=== PATIENT | male | born 1950 | race Caucasian/White ===

== ENCOUNTER 2024-12-17 04:17 | Inpatient (IN) | payer MEDICARE, SELFPAY ==
[2024-12-17] VITALS (35 sets, daily range): BP systolic 100–136; BP diastolic 64–95; PULSE 82–108; RESP 11–29; TEMP 36.1–37.1; O2SAT 90–100; BMI 16.4; BMI 16.2
--- NOTE | ~2024-12-17 | XR_ITS ---
AP view of the pelvis and AP and lateral views of the right hip Clinical history: Pain Findings: There is acute comminuted fracture through the intertrochanteric region of the proximal rig ht femur with varus angulation of the major distal fracture fragment.. Bilateral hip and SI joint spa vanessa are preserved. Soft tissues are unremarkable. Impression: Acute comminuted intertrochanteric fracture of the proximal right femur, as detailed above. Reviewed, dictated and finalized at location M. Impression: Acute comminuted intertrochanteric fracture of the proximal right femur, as det harshil above.
--- NOTE | ~2024-12-17 | XR_ITS ---
MODIFIED ESOPHAGRAM HISTORY: Aspiration TECHNIQUE: Modified barium esophagram was performed on 12/19/2024. I administered fluoroscopy and perf ormed the exam with speech pathologist. Patient was seated for lateral fluoroscopic imaging for zoe stion of thin liquids, pudding, solids and quantified amounts, followed by thin liquids in uncontroll ed amounts. This was recorded on tape. A single fluoroscopic spot image was also recorded. The DAP fo r this procedure was 0.875 Gycm2. The amount of fluoroscopy time used during this procedure was 1.5 m inutes. FINDINGS: Oral stage: Adequate function. Pharyngeal stage: Reduced laryngeal elevation and adduction. Reduced tongue base retraction and phary ngeal squeeze. There is vallecular and piriform sinus residue. There is laryngeal penetration with as piration after the swallow. Moderate cervical spondylosis with small anterior endplate osteophytes in the mid to lower cervical spine. Cervical/esophageal stage: Adequate function. IMPRESSION: Pharyngeal dysphagia with laryngeal penetration and aspiration after the swallow. Please correlate with speech pathologist findings and specific feeding recommendations. Reviewed, dictated and finalized at location A. IMPRESSION: Pharyngeal dysphagia with laryngeal penetration and aspiration afte r the swallow. Please correlate with speech pathologist findings and specific feeding recommendations.
--- NOTE | ~2024-12-17 | XR_ITS ---
XR chest 1V portable Ordering provider: Kevon Wren History: 74 years Male with . RUL mass . Comparison: December 17, 2024 FINDINGS: MEDIASTINUM: The cardiac silhouette is not enlarged. LUNGS: No infiltrates, effusions or pneumothorax. Right upper lobe mass is again demonstrated unchang ed from previous examination. OTHER: No free air under the diaphragm. Degenerative changes of the spine. IMPRESSION: Right upper lobe mass unchanged. Reviewed, dictated and finalized at location A.
--- NOTE | ~2024-12-17 | XR_ITS ---
Portable chest x-ray Comparison: None Clinical History: Status post fall Findings: There is 6.6 cm mass versus consolidation in the right upper lobe medially. Possible minim al fluid in the left fissure versus left midlung scarring. Probable COPD. Cardiomediastinal silhouet te is stable. Bones and soft tissues are unremarkable. Impression: 6.6 cm mass versus consolidation right upper lobe medially. Chest CT recommended to further evaluate. COPD. Reviewed, dictated and finalized at location . Impression: 6.6 cm mass versus consolidation right upper lobe medially. Chest CT recommende d to further evaluate. COPD.
--- NOTE | ~2024-12-17 | XR_ITS ---
INTRAOPERATIVE FLUOROSCOPY: CLINICAL HISTORY: 74 years old Male; RIGHT IT NAIL PROCEDURE COMMENTS: Limited intraoperative fluoroscopy of the right hip was performed. CUMULATIVE DOSE: 6.1 mGy FLUOROSCOPY TIME: 86 seconds FINDINGS/IMPRESSION: Please refer to operative note for further details. Reviewed, dictated and finalized at location A.
--- NOTE | ~2024-12-17 | CT_ITS ---
Clinical Indication: Right lung mass CT Scan of the Chest with Contrast: Technique: Contiguous sections were acquired throughout the chest after intravenous administration of 75 cc of Omnipaque 350. Dose reduction technique was used on this scan by utilizing automated exposu re control and iterative reconstruction technique. The dose-length product (DLP) was 144.39 mGy-cm. Findings: There are enlarged right paratracheal, right hilar, and subcarinal lymph nodes. Largest node is proba kathreine in the right paratracheal stripe measuring approximately 2.1 cm in diameter.. There is no filling defect in the pulmonary arterial tree to suggest pulmonary embolus. There is no evidence of aortic d issection or aneurysm. There is no evidence of pleural or pericardial effusion. Posterior right upper lobe consolidation is present, most compatible with pneumonia. Small amount of hyperdense material present in the consolidation raising possibility of aspiration. Questionable area s of necrosis within the pneumonia versus changes related to underlying severe emphysema. There is pr obable linear scarring in the lateral left upper lobe. Images through the upper abdomen reveal no abnormalities. Impression: Right upper lobe consolidation morphologically is most compatible with pneumonia. Hyperdense material within the pneumonia raises possibility of aspiration. Questionable areas of cavitation/necrosis wit hin the pneumonia versus changes related to underlying severe diffuse emphysema. Follow-up to radiogr aphic resolution is advised. Mediastinal and right hilar lymphadenopathy, presumably reactive. Reviewed, dictated and finalized at [facility]. Impression: Right upper lobe consolidation morphologically is most compatible with pneumoni a. Hyperdense material within the pneumonia raises possibility of aspiration. Q uestionable areas of cavitation/necrosis within the pneumonia versus changes re lated to underlying severe diffuse emphysema. Follow-up to radiographic resolut ion is advised. Mediastinal and right hilar lymphadenopathy, presumably reactive.
--- NOTE | 2024-12-17 04:20 | ECG_ITS ---
Test Date: 2024-12-17 04:35:02 Measurements Intervals Gordon Rate: 93 P: 85 MA: 131 QRS: -76 QRSD: 81 T: 76 QT: 351 QTc: 438 Interpretive Statements SINUS RHYTHM RIGHT ATRIAL ENLARGEMENT CONSIDER RIGHT VENTRICULAR CONDUCTION DELAY LEFT ANTERIOR FASCICULAR BLOCK BASELINE ARTIFACT- I, II, III, AVR, AVL, AVF, V1-V2, V4-V6 ABNORMAL ECG No previous ECG available for comparison Electronically Signed On 12-17-2024 06:38:19 CDT by Koby James D.O.
[2024-12-17 04:35] LABS: Basophils Percent Auto 0.4 % (0.2-1.2); Eosinophils Absolute Auto 0.1 K/mm3 (0-0.3); Eosinophils Percent Auto 0.7 % (0-4.4); Hematocrit 45.3 % (42.0-52.0); Hemoglobin 14.4 g/dL (14.0-18.0); Immature Granulocyte Absolute 0.06 K/mm3 (0.00-0.031); Immature Granulocyte Percent A 0.6 % (0-0.5); Lymphocytes Absolute Auto 0.78 K/mm3 (0.9-3.2); Lymphocytes Percent Auto 7.5 % (18.3-44.2); Mean Corpuscular HGB Conc 31.8 g/dl (32-36); Mean Corpuscular Hemoglobin 31.6 pg (26-34); Mean Corpuscular Volume 99.6 fl (80-100); Mean Platelet Volume 10.3 fl (7.4-10.4); Monocytes Absolute Auto 0.8 K/mm3 (0.1-0.6); Monocytes Percent Auto 7.8 % (2.6-8.5); Neutrophils Absolute Auto 8.6 K/mm3 (1.3-6.7); Platelet Count Result 269 k/mm3 (150-375); Red Blood Count 4.55 M/mm3 (4.6-6.20); Red Cell Distribution Width 14.4 % (11.5-14.5); White Blood Count 10.4 K/mm3 (4.5-10.0)
[2024-12-17 04:44] LABS: Alanine Aminotransferase 23 U/L (6-50); Albumin Level 4.2 g/dL (3.5-5.1); Alkaline Phosphatase 98 U/L (38-126); Anion Gap 14 mmol/L (4-12); Aspartate Amino Transferase 36 U/L (17-59); Bilirubin,Total 0.9 mg/dL (0.2-1.3); Blood Urea Nitrogen 30 mg/dL (9-20); Calcium 9.3 mg/dL (8.4-10.2); Carbon Dioxide 22 mmol/L (22-30); Chloride 105 mmol/L (98-107); Estimated CRCL calculation 40 ml/min; Estimated Glomerular Filt Rate > 60; Glucose 141 mg/dL (65-110); Magnesium 2.3 mg/dL (1.6-2.3); Potassium 3.7 mmol/L (3.4-5.0); Sodium 141 mmol/L (137-145)
[2024-12-17 04:54] LABS: INR 1.1; Prothrombin Time 14.5 Seconds (11.1-14.7)
[2024-12-17 04:55] LABS: Partial Thromboplastin Time 29.6 Seconds (22.3-36.8)
--- NOTE | 2024-12-17 04:56 | ED_ITS ---
HPI - General Adult General Chief complaint: Fall Stated complaint: Fall/hip pain History of Present Illness HPI narrative: patient 74-year-old gentleman presents emergency department chief complaint of right hip pain. Patient reports that he had a ground level fall and reports that he had pain in the right hip area reports he was unable to ambulate and reports that the extremity was shortened and rotated the patient normally gets his care at [facility] reports that he has a chronic indwelling Gabriel and has history of lung nodules Related Data Allergies Allergy/AdvReac Type Severity Reaction Status Date / Time No Known Allergies Allergy Verified 12/17/24 05:01 Review of Systems 2 Review of Systems: A 10 system review of systems was completed on the patient and is negative except for what is stated in the HPI. Nursing and ancillary documentation was reviewed. Exam 2 Narrative: GENERAL: thin, chronically ill-appearing, in mild pain distress HEAD: Normocephalic, atraumatic. EYES: PERRLA and EOMI. ENT: Nares clear, no rhinorrhea or epistaxis. Mucous membranes moist. NECK: Supple. CHEST: Clear to auscultation. No respiratory distress. HEART: Regular rate and rhythm. No murmur heard. Normal peripheral pulses. ABDOMEN: Soft, nontender, nondistended, normal active bowel sounds. : There is a Gabriel catheter in place EXTREMITIES: Normal range of motion in all extremities except for right lower extremity right hip is shortened externally rotated. No edema. SKIN: Warm, dry, no rash. NEURO: No focal deficits. Alert and oriented x3. extremely hard of hearing PSYCH: Normal mood and affect. Course Vital Signs Vital signs: Vital Signs Temperature 36.2 C L 12/17/24 04:12 Pulse Rate 96 12/17/24 04:12 Respiratory Rate 20 12/17/24 04:12 Blood Pressure 131/94 H 12/17/24 04:12 Pulse Oximetry 100 12/17/24 04:12 Oxygen Delivery Room Air 12/17/24 04:12 Temperature 36.2 C L 12/17/24 04:12 Pulse Rate 86 12/17/24 05:45 Respiratory Rate 17 12/17/24 05:45 Blood Pressure 117/77 12/17/24 05:45 Pulse Oximetry 96 12/17/24 05:45 Oxygen Delivery Room Air 12/17/24 04:12 Medical Decision Making Vital Signs Vital Signs: Vital Signs Temperature 36.2 C L 12/17/24 04:12 Pulse Rate 96 12/17/24 04:12 Respiratory Rate 20 12/17/24 04:12 Blood Pressure 131/94 H 12/17/24 04:12 Pulse Oximetry 100 12/17/24 04:12 Oxygen Delivery Room Air 12/17/24 04:12 Temperature 36.2 C L 12/17/24 04:12 Pulse Rate 86 12/17/24 05:45 Respiratory Rate 17 12/17/24 05:45 Blood Pressure 117/77 12/17/24 05:45 Pulse Oximetry 96 12/17/24 05:45 Oxygen Delivery Room Air 12/17/24 04:12 Lab Data 12/17/24 04:30 12/17/24 04:30 Labs: Lab Results 12/17/24 12/17/24 Range/Units 04:26 04:30 WBC 10.4 H (4.5-10.0) K/mm3 RBC 4.55 L (4.6-6.20) M/mm3 Hgb 14.4 (14.0-18.0) g/dL Hct 45.3 (42.0-52.0) % MCV 99.6 (80-100) fl MCH 31.6 (26-34) pg MCHC 31.8 L (32-36) g/dl RDW 14.4 (11.5-14.5) % Plt Count 269 (150-375) k/mm3 MPV 10.3 (7.4-10.4) fl Immature Gran % (Auto) 0.6 H (0-0.5) % Neut % (Auto) 83.0 H (45.5-73.1) % Lymph % (Auto) 7.5 L (18.3-44.2) % [place] % (Auto) 7.8 (2.6-8.5) % Eos % (Auto) 0.7 (0-4.4) % Baso % (Auto) 0.4 (0.2-1.2) % Lymph # (Auto) 0.78 L (0.9-3.2) K/mm3 [place] # (Auto) 0.8 H (0.1-0.6) K/mm3 Eos # (Auto) 0.1 (0-0.3) K/mm3 Baso # (Auto) 0.0 (0.0-0.1) K/mm3 Abs Immat Gran (auto) 0.06 H (0.00-0.031) K/mm3 Absolute Neuts (auto) 8.6 H (1.3-6.7) K/mm3 Absolute Nucleated RBC 0.000 (0.0-0.012) K/mm3 Nucleated RBC % 0.0 (0.0-0.2) % PT 14.5 (11.1-14.7) Seconds INR 1.1 APTT 29.6 (22.3-36.8) Seconds Sodium 141 (137-145) mmol/L Potassium 3.7 (3.4-5.0) mmol/L Chloride 105 (98-107) mmol/L Carbon Dioxide 22 (22-30) mmol/L Anion Gap 14 H (4-12) mmol/L BUN 30 H (9-20) mg/dL Creatinine 0.97 (0.7-1.3) mg/dL Estim Creat Clear Calc 40 ml/min Estimated GFR > 60 (59 - ) Glucose 141 H (65-110) mg/dL Calcium 9.3 (8.4-10.2) mg/dL Magnesium 2.3 (1.6-2.3) mg/dL Total Bilirubin 0.9 (0.2-1.3) mg/dL AST 36 (17-59) U/L ALT 23 (6-50) U/L Alkaline Phosphatase 98 (38-126) U/L Total Protein 8.0 (6.3-8.2) g/dL Albumin 4.2 (3.5-5.1) g/dL Urine Color Yellow (Yellow) Urine Appearance Turbid H (Clear) Urine pH >=9.0 H (5.0-9.0) Ur Specific [place] 1.017 (1.001-1.035) Urine Protein 2+ H (Negative) mg/dL Urine Glucose (UA) Negative (Negative) mg/dL Urine Ketones Trace H (Negative) mg/dL Ur Blood (Man) Negative (Negative) Urine Nitrate Negative (Negative) Urine Bilirubin Negative (Negative) Urine Urobilinogen 1.0 (<2.0) mg/dL Add Ur Microanalysis Reviewed Leukocyte Esterase Rfl 2+ H (Negative) GINNY/UL Urine RBC 3-5 H (0-2) /hpf Urine WBC 0-5 (0-3) /hpf Ur Squamous Epith Cells Occasional (Few) /hpf Uric Acid Crystals Present H (None) /hpf Urine Bacteria 4+ H /hpf Urine Casts 3-5 Urine Yeast (Budding) Present H (None) /hpf Discharge Plan Discharge Clinical Impression: Closed intertrochanteric fracture of right femur, Fall from ground level Patient Disposition: Still a Patient Condition: Stable Patient Language: [place] Citizen Time of Disposition: 06:22
[2024-12-17 04:58] LABS: Add Urine Microscopic? YES; Appearance Urine Turbid (Clear); Bacteria Urine 4+ /hpf; Bilirubin Urine Negative (Negative); Blood Urine Negative (Negative); Budding Yeast Urine Present /hpf; Color Urine Yellow (Yellow); Glucose Urine UA Negative (Negative); Ketones Urine Trace mg/dL (Negative); Leukocyte Esterase Ur 2+ LEU/UL (Negative); Need Manual Microscopic Reviewed; Nitrate Urine Negative (Negative); Protein Urine 2+ mg/dL (Negative); Specific Grav Ur 1.017 (1.001-1.035); Squamous Epithelial Cell Urine Occasional /hpf (Few); Uric Acid Crystals Urine Present /hpf; WBC Urine 0-5 /hpf (0-3); pH Urine >=9.0 (5.0-9.0)
[2024-12-17] MEDS: MORPHINE SULFATE (*CRX) 4 MG/ML INJ 2 MG IV PUSH (05:04)
--- NOTE | 2024-12-17 05:15 | PC.NURSE ---
[address] upon arrival, removed and replaced with new 18 FR power.
--- NOTE | 2024-12-17 06:34 | PC.NURSE ---
Spoke with patient's partner, Gera Sanchez. (# [phone]) Partner states patient does not currently have a PCP. States in August, the patient had a GI bleed and urinary retention, was seen in [place] for these problems and was transfused there and had a power catheter placed. Did not follow up with urology until a little over a week ago, where the catheter was changed out. Partner also states that the patient stopped taking his home medications sometime around September, has had a rapid weight loss, and troubles swallowing, especially liquids. Partner also states patient was supposed to follow up with GI, and pulmonology due to nodules found on his lungs, but has not followed up with either. Patient's partner will not be visiting today, but states patient's brother will be coming up this morning.
--- OUTSIDE RECORDS SUMMARY | 2024-12-17 06:47 | XMS_ITS | Clinical Summary ---
Author Organization [facility] Address [facility] [place] [address] Care Team Providers Care Roofing Technician Name Role Phone Unavailable Primary Care Provider Unavailabl e Social History Tobacco Use Types Packs/Day Years Used Date Smoking Tobacco: Former Sex and Gender Information Value Date Recorded Sex Assigned at Not on file Legal Sex Male 6:22 PM CDT Gender Identity Not on file Sexual Orientation Not on file Last Filed Vital Signs Vital Sign Reading Time Taken Comments Blood Pressure 142/88 09/08/2013 12:59 PM GLOBAL MOBILITY SPECIALIST Pulse 76 09/08/2013 12:58 PM GLOBAL MOBILITY SPECIALIST Temperature - - Respiratory Rate 16 09/08/2013 12:58 PM GLOBAL MOBILITY SPECIALIST Oxygen Saturation - - Inhaled Oxygen Concentration - - Weight 62.1 kg (137 lb) 09/08/2013 12:58 PM GLOBAL MOBILITY SPECIALIST Height 168.9 cm (5' 6.5 ) 09/08/2013 12:58 PM CS T Body Mass Index 21.78 09/08/2013 12:58 PM GLOBAL MOBILITY SPECIALIST Plan of Treatment Health Maintenance Due Date Last Done Comments Colorectal Cancer Screening Colonoscopy (10 Years) 1950 Hepatitis C 1969 DTaP, Tdap and Td Vaccines ( 1 - Tdap) 1970 Pneumococcal Vaccine: 50+ Ye ars (1 of 1 - PCV) 2001 Zoster Vaccines (1 of 2) 2001 COVID-19 Vaccine ( - 2023-2 5 season) 2024 RSV Immunization or 60+ Years (1 - 1-dose 75+ series) 2026 Meningococcal B Vaccine Aged Out No l onger eligible based on patient's age to complete this topic Meningococcal Vaccine Aged Out No ashley larissa eligible based on patient's age to complete this topic RSV Immunizations Under 20 Months Aged Out No longer eligible based on patient's age to complete this topic
--- NOTE | 2024-12-17 07:16 | PC.NURSE ---
Assumed care. Sleeping. In no distress. PMS intact to right leg. Awaiting room assignment.
--- NOTE | 2024-12-17 08:04 | P.HP_ITS ---
H&P: HPI History of Present Illness Date/Time: 12/17/24 08:04 Chief Complaint: Fall and right hip pain Narrative: patient 74-year-old gentleman with history of urine retention with indwelling Gabriel catheter, lung nodules present ED with a chief complaint of emergency department chief complaint of right hip pain. 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 Patient could not stand up and ambulate because severe pain. Patient lost balance when patient was walking the night and fall on the floor. Patient denies loss consciousness, chest pain, palpitation, abdomen pain, nausea vomiting. Upon arrival to ED, patient was afebrile, blood pressure stable, no O2 desaturation on room air, Labs reviewed, elevated BUN creatinine ratio 30/0.97 Hip pelvis x-ray showed acute comminuted intertrochanteric fracture of the proximal right femur Chest x-ray shows 6.6 cm mass versus consolidation right upper lobe medially. Chest CT recommended to further evaluate. Review of Systems Review of Systems: ROS negative except above PMFSH Past Medical History Medical History Lung nodule Cachexia Social History Social History Spiritual care concerns: No Meds Home Medications and Allergies Home Medications ?Medication ?Instructions ?Recorded ?Confirmed ?Type ferrous sulfate 325 mg (65 mg 325 mg PO .daily @1200 12/17/24 12/17/24 History iron) tablet midodrine 5 mg tablet 15 mg PO TID 12/17/24 12/17/24 History pantoprazole 40 mg tablet,delayed 40 mg PO BID 12/17/24 12/17/24 History release umeclidinium 62.5 mcg/actuation 1 inh inhalation Q24H 12/17/24 12/17/24 History blister powder for inhalation (Incruse Ellipta) Allergies Allergy/AdvReac Type Severity Reaction Status Date / Time No Known Allergies Allergy Verified 12/17/24 12:31 Vital Signs Vital Signs - 24 hr 12/17/24 04:12 12/17/24 04:20 12/17/24 05:02 Temperature 97.2 F L Pulse Rate 96 90 86 Respiratory Rate 20 20 21 H Blood Pressure 131/94 H 131/94 H 122/87 Pulse Oximetry 100 100 99 Oxygen Delivery Room Air 12/17/24 05:16 12/17/24 05:30 12/17/24 05:45 Temperature Pulse Rate 85 88 86 Respiratory Rate 14 19 17 Blood Pressure 120/91 H 114/81 117/77 Pulse Oximetry 98 94 96 Oxygen Delivery 12/17/24 06:00 12/17/24 06:15 12/17/24 06:30 Temperature Pulse Rate 84 86 93 Respiratory Rate 11 L 19 29 H Blood Pressure 110/77 111/72 Pulse Oximetry 99 95 Oxygen Delivery 12/17/24 06:37 12/17/24 06:45 Temperature Pulse Rate 87 87 Respiratory Rate 19 20 Blood Pressure 100/67 120/81 Pulse Oximetry 95 Oxygen Delivery Exam Narrative: GENERAL: Pleasant, in no acute distress. Severe malnutrition - EYES: EOMI. Anicteric. - HENT: Moist mucous membranes. Heart h earing - LUNGS: Clear to auscultation bilateral ly, no wheezing, rhonchi, or rales. - CARDIOVASCULAR: Regular rate and rhyth m. No murmur. No JVD. - ABDOMEN: Soft, non-tender and non-dist ended. No palpable masses. - EXTREMITIES: No edema. Peripheral puls es 2+. Restricted movement of right hip because of pain - NEUROLOGIC: No focal neurological defi cits. CN II-XII grossly intact. - PSYCHIATRIC: Awake, Alert and oriented x 3. Appropriate mood and affect. - SKIN: No rashes or lesions. Warm. - LYMPH: No cervical lymphadenopathy. H&P: Results Labs Labs: Short CBC 12/17/24 Range/Units 04:30 WBC 10.4 H (4.5-10.0) K/mm3 Hgb 14.4 (14.0-18.0) g/dL Hct 45.3 (42.0-52.0) % Plt Count 269 (150-375) k/mm3 BMP 12/17/24 04:30 Sodium 141 Potassium 3.7 Chloride 105 Carbon Dioxide 22 BUN 30 H Creatinine 0.97 Glucose 141 H Calcium 9.3 Liver Function 12/17/24 Range/Units 04:30 Total Bilirubin 0.9 (0.2-1.3) mg/dL AST 36 (17-59) U/L ALT 23 (6-50) U/L Alkaline Phosphatase 98 (38-126) U/L Albumin 4.2 (3.5-5.1) g/dL Urine 12/17/24 Range/Units 04:26 Urine Color Yellow (Yellow) Urine Appearance Turbid H (Clear) Urine pH >=9.0 H (5.0-9.0) Ur Specific [place] 1.017 (1.001-1.035) Urine Protein 2+ H (Negative) mg/dL Urine Glucose (UA) Negative (Negative) mg/dL Assessment and Plan Assessment and plan (1) Closed intertrochanteric fracture of right femur: Code(s): S72.141A - Displaced intertrochanteric fracture of right femur, initial encounter for closed fracture Status: Acute (2) Fall from ground level: Code(s): W18.30XA - Fall on same level, unspecified, initial encounter Status: Acute (3) Lung nodule: Code(s): R91.1 - Solitary pulmonary nodule Status: Acute Plan Right hip fracture Patient had a fall and sustained severe right hip pain Hip pelvis x-ray showed acute comminuted intertrochanteric fracture of the proximal right femur Optimize pain management Consult orthopedic surgeon Start PT OT when is cleared by orthopedic surgeon Lung nodule Chest x-ray shows 6.6 cm mass versus consolidation right upper lobe medially. A pending Chest CT with contrast Dehydration Labs reviewed, elevated BUN creatinine ratio 30/0.97 Start normal saline IV 100 mL/hour Severe malnutrition Consult dietitian DVT prophylaxis per orthopedic surgeon
[2024-12-17] MEDS: MORPHINE SULFATE (*CRX) 2 MG/ML INJ IV PUSH (08:59)
[2024-12-17] MEDS: SODIUM CHLORIDE 0.9% IV 1,000 ML 100 ML IV CONT ×2 (09:00→23:25)
[2024-12-17] MEDS: LACTATED RINGERS 1,000 ML 30 ML IV CONT (12:25)
--- NOTE | 2024-12-17 12:42 | WPDANESEPPF ---
Anes - Initial Pre Proc Eval Procedure: Operation Date: 12/17/24 14:00 Proposed Procedures p Open Reduction Internal Fixation Right Intertrochanteric Fracture(Right) - Jayson Hirsch MD Date/Time: 12/17/24 12:42 Surgeon: Josefina Terrazas MD Pre Op Diagnosis: Right intertrochanetric femur fracture Patient Data Age: 74 Gender: M Height: 1.7 m Weight: 47.1 kg Last Vital Signs Temp 37.1 C 12/17/24 12:20 Pulse 87 12/17/24 12:20 Resp 16 12/17/24 12:20 BP 112/71 12/17/24 12:20 Pulse Ox 99 12/17/24 12:20 O2 Del Method Room Air 12/17/24 12:20 Allergies Allergy/AdvReac Type Severity Reaction Status Date / Time No Known Allergies Allergy Verified 12/17/24 12:31 Home Medications ?Medication ?Instructions ?Recorded ?Confirmed ?Type ferrous sulfate 325 mg (65 mg 325 mg PO .daily @1200 12/17/24 12/17/24 History iron) tablet midodrine 5 mg tablet 15 mg PO TID 12/17/24 12/17/24 History pantoprazole 40 mg tablet,delayed 40 mg PO BID 12/17/24 12/17/24 History release umeclidinium 62.5 mcg/actuation 1 inh inhalation Q24H 12/17/24 12/17/24 History blister powder for inhalation (Incruse Ellipta) Laboratory Tests 12/17/24 12/17/24 04:26 04:30 WBC 10.4 H K/mm3 (4.5-10.0) RBC 4.55 L M/mm3 (4.6-6.20) Hgb 14.4 g/dL (14.0-18.0) Hct 45.3 % (42.0-52.0) MCV 99.6 fl (80-100) MCH 31.6 pg (26-34) MCHC 31.8 L g/dl (32-36) RDW 14.4 % (11.5-14.5) Plt Count 269 k/mm3 (150-375) MPV 10.3 fl (7.4-10.4) Immature Gran % (Auto) 0.6 H % (0-0.5) Neut % (Auto) 83.0 H % (45.5-73.1) Lymph % (Auto) 7.5 L % (18.3-44.2) [place] % (Auto) 7.8 % (2.6-8.5) Eos % (Auto) 0.7 % (0-4.4) Baso % (Auto) 0.4 % (0.2-1.2) Lymph # (Auto) 0.78 L K/mm3 (0.9-3.2) [place] # (Auto) 0.8 H K/mm3 (0.1-0.6) Eos # (Auto) 0.1 K/mm3 (0-0.3) Baso # (Auto) 0.0 K/mm3 (0.0-0.1) Abs Immat Gran (auto) 0.06 H K/mm3 (0.00-0.031) Absolute Neuts (auto) 8.6 H K/mm3 (1.3-6.7) Absolute Nucleated RBC 0.000 K/mm3 (0.0-0.012) Nucleated RBC % 0.0 % (0.0-0.2) PT 14.5 Seconds (11.1-14.7) INR 1.1 APTT 29.6 Seconds (22.3-36.8) Sodium 141 mmol/L (137-145) Potassium 3.7 mmol/L (3.4-5.0) Chloride 105 mmol/L (98-107) Carbon Dioxide 22 mmol/L (22-30) Anion Gap 14 H mmol/L (4-12) BUN 30 H mg/dL (9-20) Creatinine 0.97 mg/dL (0.7-1.3) Estim Creat Clear Calc 40 ml/min Estimated GFR > 60 (59 - ) Glucose 141 H mg/dL (65-110) Calcium 9.3 mg/dL (8.4-10.2) Magnesium 2.3 mg/dL (1.6-2.3) Total Bilirubin 0.9 mg/dL (0.2-1.3) AST 36 U/L (17-59) ALT 23 U/L (6-50) Alkaline Phosphatase 98 U/L (38-126) Total Protein 8.0 g/dL (6.3-8.2) Albumin 4.2 g/dL (3.5-5.1) Urine Color Yellow (Yellow) Urine Appearance Turbid H (Clear) Urine pH >=9.0 H (5.0-9.0) Ur Specific [place] 1.017 (1.001-1.035) Urine Protein 2+ H mg/dL (Negative) Urine Glucose (UA) Negative mg/dL (Negative) Urine Ketones Trace H mg/dL (Negative) Ur Blood (Man) Negative (Negative) Urine Nitrate Negative (Negative) Urine Bilirubin Negative (Negative) Urine Urobilinogen 1.0 mg/dL (<2.0) Add Ur Microanalysis Reviewed Leukocyte Esterase Rfl 2+ H GINNY/UL (Negative) Urine RBC 3-5 H /hpf (0-2) Urine WBC 0-5 /hpf (0-3) Ur Squamous Epith Cells Occasional /hpf (Few) Uric Acid Crystals Present H /hpf (None) Urine Bacteria 4+ H /hpf Urine Casts 3-5 Urine Yeast (Budding) Present H /hpf (None) Patient hx anesthesia problems: none Family hx anesthesia problems: none Results Review: All pre-operative results and documents have been reviewed as part of the pre-operative evaluation. [facility] Past Medical History Medical History (Updated 12/17/24 @ 12:42 by Jack John DO) Lung nodule Cachexia Anes - Eval Final PreProcedure Day of Procedure 12/17/24 12:42 Patient weight: cachectic Heart: regular rate and rhythm Lungs: clear to auscultation Airway: Mallampati scale class II Neurological: alert and oriented Last oral intake: >/= 8 hours ASA classification: IV Emergent: no Anesthetic plan: proceed Anesthesia type and monitoring: general LMA and standard monitoring Results Review: All pre-operative results and documents have been reviewed as part of the pre-operative evaluation. Informed Consent: The patient's anesthetic plan and its attendant risks and benefits were discussed with the patient/family/POA. Questions were solicited and answers provided to the satisfaction of the patient/family/POA.
--- NOTE | 2024-12-17 13:07 | P.HP_ITS ---
H&P: HPI History of Present Illness Date/Time: 12/17/24 13:07 Chief Complaint: Right hip pain Narrative: Patient is a 74-year-old male who is at home with his partner fell yesterday landing onto his right hip. EMS was called he was taken by ambulance to the [facility] Emergency Room early this morning. The patient is here today with his younger brother Karlie. The patient is deaf and cannot hear. I co mmunicated with the patient and with his brother Karlie who is a great historian and very helpful with regard to providing some background with regard to the patient's medical history as well as social situation. I communicated with the patient through a clipboard in some writing. Patient reports pain nowhere else for access into the right hip. He normally would ambulate with a cane. He does have a walker she does not walker. Patient appears to be cachectic does not have much appetite. He has lost about 30-35 lb over the past 12 months. He does have a history of a prostate issue any presents to the emergency room with a urinary catheter that has been in place since August of this year. He has very poor follow-up with a primary care provider or a physician of any type. Apparently had a prostate issue but 2 years ago and had this catheter placed in [facility] on August this year after being admitted with a GI bleed. The catheter has been in place since that time. Review of Systems Review of Systems: According to the patient's younger brother Karlie the patient has lost 35 lb in t he past few months. He ambulates with a cane or walker. He has poor appetite. He lives at home with his partner. He does not have good follow-up with any physician. He has a urinary catheter in place as medically since August. He has a history of prostate issues unclear what type. Constitutional: Constitutional: Reports as per HPI, Reports anorexia, Reports frequent falls, Reports lethargy, Reports malaise, Reports poor appetite and Reports weight loss ENT: Reports hearing loss Comments: Extreme hearing loss. Need to use a clipboard to communicate with this patient. Genitourinary: Comments: The patient has a urinary catheter in place. This is been in place since August. Musculoskeletal: Musculoskeletal: Reports as per HPI [facility] Past Medical History Medical History Lung nodule Cachexia Social History Social History Spiritual care concerns: No Meds Home Medications and Allergies Home Medications ?Medication ?Instructions ?Recorded ?Confirmed ?Type ferrous sulfate 325 mg (65 mg 325 mg PO .daily @1200 12/17/24 12/17/24 History iron) tablet midodrine 5 mg tablet 15 mg PO TID 12/17/24 12/17/24 History pantoprazole 40 mg tablet,delayed 40 mg PO BID 12/17/24 12/17/24 History release umeclidinium 62.5 mcg/actuation 1 inh inhalation Q24H 12/17/24 12/17/24 History blister powder for inhalation (Incruse Ellipta) Allergies Allergy/AdvReac Type Severity Reaction Status Date / Time No Known Allergies Allergy Verified 12/17/24 12:31 Vital Signs Vital Signs - 24 hr 12/17/24 04:12 12/17/24 04:20 12/17/24 05:02 Temperature 36.2 C L Pulse Rate 96 90 86 Respiratory Rate 20 20 21 H Blood Pressure 131/94 H 131/94 H 122/87 Pulse Oximetry 100 100 99 Oxygen Delivery Room Air 12/17/24 05:16 12/17/24 05:30 12/17/24 05:45 Temperature Pulse Rate 85 88 86 Respiratory Rate 14 19 17 Blood Pressure 120/91 H 114/81 117/77 Pulse Oximetry 98 94 96 Oxygen Delivery 12/17/24 06:00 12/17/24 06:15 12/17/24 06:30 Temperature Pulse Rate 84 86 93 Respiratory Rate 11 L 19 29 H Blood Pressure 110/77 111/72 Pulse Oximetry 99 95 Oxygen Delivery 12/17/24 06:37 12/17/24 06:45 12/17/24 07:00 Temperature Pulse Rate 87 87 87 Respiratory Rate 19 20 19 Blood Pressure 100/67 120/81 116/80 Pulse Oximetry 95 Oxygen Delivery 12/17/24 07:01 12/17/24 07:15 12/17/24 07:16 Temperature Pulse Rate 85 86 86 Respiratory Rate 26 H 16 22 H Blood Pressure 118/84 Pulse Oximetry Oxygen Delivery 12/17/24 07:30 12/17/24 07:31 12/17/24 07:45 Temperature Pulse Rate 86 87 85 Respiratory Rate 17 19 14 Blood Pressure 115/95 H 119/82 Pulse Oximetry Oxygen Delivery 12/17/24 07:46 12/17/24 08:00 12/17/24 08:01 Temperature Pulse Rate 86 86 86 Respiratory Rate 16 18 15 Blood Pressure 115/81 Pulse Oximetry Oxygen Delivery 12/17/24 08:15 12/17/24 08:16 12/17/24 08:31 Temperature Pulse Rate 88 86 82 Respiratory Rate 19 19 20 Blood Pressure 128/89 125/83 Pulse Oximetry 98 Oxygen Delivery 12/17/24 09:05 12/17/24 12:20 Temperature 36.2 C L 37.1 C Pulse Rate 87 87 Respiratory Rate 16 16 Blood Pressure 136/81 112/71 Pulse Oximetry 98 99 Oxygen Delivery Room Air H&P: Results Labs Labs: Short CBC 12/17/24 Range/Units 04:30 WBC 10.4 H (4.5-10.0) K/mm3 Hgb 14.4 (14.0-18.0) g/dL Hct 45.3 (42.0-52.0) % Plt Count 269 (150-375) k/mm3 BMP 12/17/24 04:30 Sodium 141 Potassium 3.7 Chloride 105 Carbon Dioxide 22 BUN 30 H Creatinine 0.97 Glucose 141 H Calcium 9.3 Liver Function 12/17/24 Range/Units 04:30 Total Bilirubin 0.9 (0.2-1.3) mg/dL AST 36 (17-59) U/L ALT 23 (6-50) U/L Alkaline Phosphatase 98 (38-126) U/L Albumin 4.2 (3.5-5.1) g/dL Urine 12/17/24 Range/Units 04:26 Urine Color Yellow (Yellow) Urine Appearance Turbid H (Clear) Urine pH >=9.0 H (5.0-9.0) Ur Specific [place] 1.017 (1.001-1.035) Urine Protein 2+ H (Negative) mg/dL Urine Glucose (UA) Negative (Negative) mg/dL Assessment and Plan Assessment and plan (1) Intertrochanteric fracture of right hip: Code(s): S72.141A - Displaced intertrochanteric fracture of right femur, initial encounter for closed fracture Status: Acute Plan The patient is a 74-year-old male presents with a right hip intertrochanteric fracture displaced unstable. He lives at home with his partner and has been using a cane to ambulate. Apparently fell at home and EMS was contacted he was taken to the [facility] Emergency Room and diagnosed with a right hip intertrochanteric fracture. He is here today with his younger brother who is an excellent historian and provide some details with regards to the patient's social history is for medical issues. I communicated with the patient to a clipboard and writing. He has pain or else except for his right hip. My treatment plan is for a right hip intramedullary nikky fixation after reduction. I explained this to the patient's brother parent and also explained this to the patient in writing. They understand the risks benefits alternatives and complications of the procedure and they are willing to proceed. The risks include but not limited to infection nonunion malunion DVT and they agreed to proceed. Nerve and blood vessel injury were also discussed.
--- NOTE | 2024-12-17 13:26 | WPDHPUPDATE1 ---
History and Physical Update Update Date/Time: 12/17/24 13:26 History and Physical has been reviewed, including an updated exam of the patient. There are NO changes in the patient's condition. Risks, benefits, and alternatives have been discussed and questions answered. Patient agrees to proceed with procedure. Plan is to do a right hip open reduction internal fixation with the intramedullary nikky
[2024-12-17] MEDS: ceFAZolin 2 GM/D5W 50 ML 2 GM/50 ML BAG IVPB ×2 (13:31→21:42)
--- NOTE | 2024-12-17 14:08 | SUR.OPER ---
500 cc's of dark yellow urine emptied from power
[2024-12-17] MEDS: BUPIVACAINE/EPINEPHRINE 0.5% 50 ML VIAL 20 ML INFILTRATE (14:13)
--- NOTE | 2024-12-17 14:35 | ADMGEN ---
This patient, Gera Dennis, was admitted to [facility] Surg Room 330-02. Patient/family oriented to hospital policies and general routines including ID bracelet, bed and alarms, visiting hours, pain management, procedures, bathroom and other care routines, personal items, smoking policy, room service/diet, and visiting hours. Information on how to activate the Rapid Response Team has been discussed. Patient/Family are encouraged to report perceived risks to care and to ask questions if they do not understand what they are told or what they should do.
--- NOTE | 2024-12-17 14:57 | W.PM.PROC2 ---
Procedure Note - Detailed Date of Procedure 12/17/24 Pre-op Diagnosis Right intertrochanetric femur fracture Post-op Diagnosis Same Procedure Performed Right Hip Intra-Medullary Shiv Fixation of IT Fracture Surgeon Jayson Hirsch MD Anesthesia General Indications The patient is a 74-year-old male presented to the emergency room a displaced unstable right intertrochanteric fracture. Patient presented with his younger brother Karlie. His younger brother was the historian secondary to that he is able hear. I did communicate with the patient with a clipboard. Findings Displaced right hip intertrochanteric fracture Description of Procedure After obtaining consent her and marked in the patient's hip the patient was then brought to the operating placed in supine position at which time he underwent general anesthesia. Is in place on the fracture table the left lower extremity flexed at 90? of the hip and the knee and the right lower extremity was placed in traction reduction was then performed. Fluoroscopy was used to verify reduction in AP and lateral views. After this was done the right hip was then prepped and draped in standard sterile fashion. A time-out was performed to verify correct patient correct site of surgery and the fact that 2 g of Ancef were administered within 1 hour of the procedure. After this was done I then created a 1 in incision prior proximal to the greater trochanteric area. I then placed a guidewire into the area of the greater troch obtained my starting position and verified this on AP and lateral views. Then advanced a guidewire and opening hole with a Reamer. After this was done I then proceeded to place a gamma 3 nail down into the intramedullary canal and verified the proximal distal positioning using fluoroscopy. After this was done and then placed a guidewire into the femoral neck and femoral head center center position by AP and lateral views. After this was done I then measured the guidewire this was at 85 mm in length. I then drilled to 85 mm and placed an 85 mm screw in the exact same position. I then proceeded to turn my attention distally and placed a locking screw in the dynamic position. After this was done I then proceeded to compress and had anatomic reduction of the fracture site. All 3 incision sites were then irrigated copiously and closed using Vicryl suture and luz. The incision was better sterile fashion and transferred to the recovery room in stable condition. The patient will be anticoagulated with aspirin he may weight bear as tolerated will consult Physical therapy. Implants Gamma 3 IM Shiv Estimated Blood Loss 200 Drains No Packing No Pathology None sent Complications No immediate complications Condition Stable Disposition PACU
[2024-12-17] MEDS: PANTOPRAZOLE 40 MG TABLET PO (17:52)
[2024-12-17] MEDS: SENNA/DOCUSATE SODIUM TABLET 2 TAB PO (17:52)
[2024-12-17] MEDS: HYDROmorphone HCL INJ (*CRX) 2 MG/ML VIAL 1 MG IV PUSH (17:52)
[2024-12-17] MEDS: ASPIRIN 81 MG ENTERIC TABLET PO (20:17)
[2024-12-17] MEDS: FAMOTIDINE 20 MG TABLET PO (20:17)
[2024-12-18] VITALS (8 sets, daily range): BP systolic 97–129; BP diastolic 51–82; PULSE 73–105; RESP 18–24; TEMP 36.2–37.2; O2SAT 92–100
[2024-12-18] MEDS: ceFAZolin 2 GM/D5W 50 ML 2 GM/50 ML BAG IVPB ×2 (05:45→13:03)
[2024-12-18 06:00] LABS: Basophils Percent Auto 0.3 % (0.2-1.2); Eosinophils Percent Auto 0.2 % (0-4.4); Hematocrit 38.4 % (42.0-52.0); Hemoglobin 12.2 g/dL (14.0-18.0); Immature Granulocyte Absolute 0.07 K/mm3 (0.00-0.031); Immature Granulocyte Percent A 0.7 % (0-0.5); Lymphocytes Absolute Auto 0.57 K/mm3 (0.9-3.2); Lymphocytes Percent Auto 5.4 % (18.3-44.2); Mean Corpuscular HGB Conc 31.8 g/dl (32-36); Mean Corpuscular Hemoglobin 32.2 pg (26-34); Mean Corpuscular Volume 101.3 fl (80-100); Monocytes Absolute Auto 0.9 K/mm3 (0.1-0.6); Monocytes Percent Auto 8.8 % (2.6-8.5); Neutrophils Absolute Auto 8.9 K/mm3 (1.3-6.7); Neutrophils Percent Auto 84.6 % (45.5-73.1); Platelet Count Result 252 k/mm3 (150-375); Red Blood Count 3.79 M/mm3 (4.6-6.20); Red Cell Distribution Width 14.6 % (11.5-14.5); White Blood Count 10.5 K/mm3 (4.5-10.0)
[2024-12-18 06:23] LABS: Anion Gap 6 mmol/L (4-12); Blood Urea Nitrogen 24 mg/dL (9-20); Calcium 8.7 mg/dL (8.4-10.2); Carbon Dioxide 27 mmol/L (22-30); Chloride 110 mmol/L (98-107); Estimated CRCL calculation 48 ml/min; Estimated Glomerular Filt Rate > 60; Glucose 104 mg/dL (65-110); Potassium 4.7 mmol/L (3.4-5.0); Sodium 143 mmol/L (137-145)
[2024-12-18 06:34] LABS: Magnesium 2.2 mg/dL (1.6-2.3)
[2024-12-18] MEDS: ACETAMINOPHEN 500 MG TABLET PO (08:12)
[2024-12-18] MEDS: MIDODRINE HCL 10 MG TABLET PO ×3 (08:12→17:05)
[2024-12-18] MEDS: PANTOPRAZOLE 40 MG TABLET PO ×2 (08:12→17:06)
[2024-12-18] MEDS: MIDODRINE HCL 2.5 MG TABLET 5 MG PO ×3 (08:12→17:06)
[2024-12-18] MEDS: SENNA/DOCUSATE SODIUM TABLET 2 TAB PO ×2 (08:13→17:05)
[2024-12-18] MEDS: SODIUM CHLORIDE 0.9% IV 1,000 ML 100 ML IV CONT ×2 (08:13→21:36)
[2024-12-18] MEDS: FAMOTIDINE 20 MG TABLET PO ×2 (08:13→21:31)
[2024-12-18] MEDS: ASPIRIN 81 MG ENTERIC TABLET PO ×2 (08:13→21:31)
[2024-12-18] MEDS: polyethylene glycoL 3350 17 GM POWD.PACK PO (08:13)
--- NOTE | 2024-12-18 09:03 | WPDURCON ---
Assessment and Plan Assessment and plan (1) UTI (urinary tract infection): Code(s): N39.0 - Urinary tract infection, site not specified Status: Acute (2) H/O urinary retention: Code(s): Z87.898 - Personal history of other specified conditions Status: Acute (3) Indwelling catheter present on admission: Code(s): Z96.0 - Presence of urogenital implants Status: Acute Plan -wbc 10.5. UA significant for infection with urine cultures pending. antibiotics per primary service. tailor abx to culture results. -monthly catheter changes -Patient can follow up with [facility] Urology as outpatient in 3 weeks for voiding trial. If fails then will set up urodynamics and cystoscopy to determine etiology of retention. Urology Consult Note HPI Date Seen: 12/18/24 Requesting Physician: Josefina Terrazas MD Primary Care Provider: PHYSICIAN NOT ON STAFF Consult Narrative Narrative: Gera Dennis is a 74 year old male who is at home with his partner fell yesterday landing onto his right hip. EMS was called he was taken by ambulance to the [facility] Emergency Room early this morning. The patient is extremely hard of hearing. Partner Gera and brother Karlie both report the patient is noncompliant and doesn't follow up for care as ordered. He also hasn't been historically open with his health issues so the family knowledge is somewhat limited. He does have a history of a prostate issue and urinary retention and presented to the emergency room with an indwelling catheter that has been in place since approximately october of this year. Family states the prostate issue was 2 years ago. Family isn't sure if he had a prostatectomy, which the patient thought happened at [facility] ([place]). The patient had a catheter placed while at [facility] for GI bleed management and was sent home with it August 2024. While at [facility], family reports they were told he still has a prostate. Gera (the partner) had taken patient back to [facility] because the catheter stopped draining at some point in October. They state it had become blocked and it was changed at [facility] at that time but he hasn't follow up since. The patient nor the partner are really sure why he still has the catheter. Review of Systems Review of Systems: All systems reviewed & are unremarkable except as noted in HPI and below PMFSH Past Medical History Medical History Lung nodule Cachexia Social History Social History Smoking status: Light tobacco smoker Tobacco type: cigarettes Alcohol intake: never Substance use: current Substance use type: marijuana Do You Feel Safe in your Home?: Yes Lack of Transportation: No Lack of Food: Never True Current Housing: I Have Housing Concerned About Future Housing: No Difficulty Paying Gas/Electric Bills: No Difficulty Paying for Meds: No Currently Unemployed: No Education: Associate Degree Difficulty w/ Childcare or Family Care: No Spiritual care concerns: No Meds Home Medications and Allergies Home Medications ?Medication ?Instructions ?Recorded ?Confirmed ?Type ferrous sulfate 325 mg (65 mg 325 mg PO .daily @1200 12/17/24 12/17/24 History iron) tablet pantoprazole 40 mg tablet,delayed 40 mg PO BID 12/17/24 12/17/24 History release umeclidinium 62.5 mcg/actuation 1 inh inhalation Q24H 12/17/24 12/17/24 History blister powder for inhalation (Incruse Ellipta) Allergies Allergy/AdvReac Type Severity Reaction Status Date / Time No Known Allergies Allergy Verified 12/17/24 12:31 Vital Signs Vital Signs - 24 hr 12/17/24 09:05 12/17/24 12:20 12/17/24 14:45 Temperature 97.2 F L 98.7 F 97.4 F L Pulse Rate 87 87 108 H Respiratory Rate 16 16 18 Blood Pressure 136/81 112/71 109/91 H Pulse Oximetry 98 99 100 Oxygen Delivery Room Air Simple Face Mask Oxygen Flow Rate 8 12/17/24 15:00 12/17/24 15:15 12/17/24 15:30 Temperature Pulse Rate 98 99 96 Respiratory Rate 21 H 21 H 24 H Blood Pressure 111/80 111/80 109/84 Pulse Oximetry 100 100 100 Oxygen Delivery Room Air Room Air Room Air Oxygen Flow Rate 12/17/24 15:45 12/17/24 16:00 12/17/24 16:15 Temperature Pulse Rate 96 95 97 Respiratory Rate 17 19 21 H Blood Pressure 110/83 105/79 105/80 Pulse Oximetry 99 98 99 Oxygen Delivery Room Air Room Air Room Air Oxygen Flow Rate 12/17/24 16:30 12/17/24 20:00 12/17/24 20:34 Temperature 97 F L Pulse Rate 97 95 Respiratory Rate 19 20 Blood Pressure 113/80 111/64 Pulse Oximetry 99 90 Oxygen Delivery Room Air Room Air Oxygen Flow Rate 12/18/24 00:27 12/18/24 00:36 12/18/24 04:34 Temperature 97.1 F L 98.7 F Pulse Rate 98 102 H Respiratory Rate 20 24 H Blood Pressure 97/51 L 127/72 102/71 Pulse Oximetry 93 92 Oxygen Delivery Oxygen Flow Rate 12/18/24 08:07 Temperature Pulse Rate Respiratory Rate Blood Pressure Pulse Oximetry Oxygen Delivery Room Air Oxygen Flow Rate Exam Const: General: no acute distress HENMT: Other: [place] Eyes: General: appearance normal, both eyes and all related structures Neck: Neck: supple Resp: Effort & Inspection: normal respiratory effort : Other: catheter present Urinary Catheter: Urinary Catheter: patent and draining (turbid yellow) Skin: General skin exam: normal color Neuro: Speech: normal speech Psych: Speech and movement: Normal speech and movement present Results Labs 12/18/24 05:41 12/18/24 05:41 Labs: Short CBC 12/18/24 Range/Units 05:41 WBC 10.5 H (4.5-10.0) K/mm3 Hgb 12.2 L (14.0-18.0) g/dL Hct 38.4 L (42.0-52.0) % Plt Count 252 (150-375) k/mm3 BMP 12/18/24 05:41 Sodium 143 Potassium 4.7 Chloride 110 H Carbon Dioxide 27 BUN 24 H Creatinine 0.80 Glucose 104 Calcium 8.7
[2024-12-18] MEDS: CEFEPIME 2 GM/NS 50 ML 2 GM/50 ML BAG IVPB ×2 (10:56→21:36)
[2024-12-18] MEDS: FERROUS SULFATE 325 MG TABLET DR BY MOUTH (10:59)
--- NOTE | 2024-12-18 13:18 | P.PNIM_ITS ---
Progress Note: A&P Assessment and Plan (1) Closed intertrochanteric fracture of right femur: Code(s): S72.141A - Displaced intertrochanteric fracture of right femur, initial encounter for closed fracture Status: Acute (2) Fall from ground level: Code(s): W18.30XA - Fall on same level, unspecified, initial encounter Status: Acute (3) Lung nodule: Code(s): R91.1 - Solitary pulmonary nodule Status: Acute (4) Necrotizing pneumonia: Code(s): J85.0 - Gangrene and necrosis of lung Status: Acute Plan Right hip fracture Patient had a fall and sustained severe right hip pain Hip pelvis x-ray showed acute comminuted intertrochanteric fracture of the proximal right femur Optimize pain management Consult orthopedic surgeon Status post Right Hip Intra-Medullary Shiv Fixation of IT Fracture 12/17 Start PT OT, cleared by orthopedic surgeon Necrotizing pneumonia Lung nodule was found on x-ray initially. Chest x-ray shows 6.6 cm mass versus consolidation right upper lobe medially. CT showed right upper lobe consolidation morphologically is most compatible with pneumonia. Hyperdense material within the pneumonia raises possibility of asp iration. Questionable areas of cavitation/necrosis within the pneumonia versus changes related to underlying severe diffuse emphysema Patient is on cefepime, start vancomycin IV Consult sales engineering manager for evaluation treatment Dehydration Labs reviewed, elevated BUN creatinine ratio 30/0.97 Start normal saline IV 100 mL/hour Indwelling folic catheter, urinary retention Consult urologist for evaluation treatment Complicated UTI due to indwelling catheter UA shows pyuria, urine culture grows Providencia rettger and Alcaligenes krishna calis Switch from Ancef to cefepime IV Severe malnutrition Consult dietitian DVT prophylaxis per orthopedic surgeon Subjective Date/time seen: 12/18/24 13:18 Interval history: I SAW EXAM PATIENT IN PRESENTS OF PATIENT'S BROTHER. PATIENT FEELS PAIN IS TOLERABLE, PATIENT IS A COUGH WITH SCANT PHLEGM. PATIENT DENIES HEMOPTYSIS, CHEST PAIN. Exam Narrative: GENERAL: Pleasant, in no acute distress. Severe malnutrition - EYES: EOMI. Anicteric. - HENT: Moist mucous membranes. Heart h earing - LUNGS: Clear to auscultation bilateral ly, no wheezing, rhonchi, or rales. - CARDIOVASCULAR: Regular rate and rhyth m. No murmur. No JVD. - ABDOMEN: Soft, non-tender and non-dist ended. No palpable masses. - EXTREMITIES: No edema. Peripheral puls es 2+. Restricted movement of right hip because of pain - NEUROLOGIC: No focal neurological defi cits. CN II-XII grossly intact. - PSYCHIATRIC: Awake, Alert and oriented x 3. Appropriate mood and affect. - SKIN: Surgical wound is dry and clean - LYMPH: No cervical lymphadenopathy. Objective Data Vital Signs Vital Signs: Vital Signs - 24 hr 12/17/24 14:45 12/17/24 15:00 12/17/24 15:15 Temperature 97.4 F L Pulse Rate 108 H 98 99 Respiratory Rate 18 21 H 21 H Blood Pressure 109/91 H 111/80 111/80 Pulse Oximetry 100 100 100 Oxygen Delivery Simple Face Mask Room Air Room Air Oxygen Flow Rate 8 12/17/24 15:30 12/17/24 15:45 12/17/24 16:00 Temperature Pulse Rate 96 96 95 Respiratory Rate 24 H 17 19 Blood Pressure 109/84 110/83 105/79 Pulse Oximetry 100 99 98 Oxygen Delivery Room Air Room Air Room Air Oxygen Flow Rate 12/17/24 16:15 12/17/24 16:30 12/17/24 20:00 Temperature Pulse Rate 97 97 Respiratory Rate 21 H 19 Blood Pressure 105/80 113/80 Pulse Oximetry 99 99 Oxygen Delivery Room Air Room Air Room Air Oxygen Flow Rate 12/17/24 20:34 12/18/24 00:27 12/18/24 00:36 Temperature 97 F L 97.1 F L Pulse Rate 95 98 Respiratory Rate 20 20 Blood Pressure 111/64 97/51 L 127/72 Pulse Oximetry 90 93 Oxygen Delivery Oxygen Flow Rate 12/18/24 04:34 12/18/24 08:00 12/18/24 08:07 Temperature 98.7 F Pulse Rate 102 H Respiratory Rate 24 H Blood Pressure 102/71 Pulse Oximetry 92 Oxygen Delivery Room Air Room Air Oxygen Flow Rate 12/18/24 08:34 12/18/24 08:45 Temperature 98.8 F Pulse Rate 105 H Respiratory Rate 20 Blood Pressure 102/68 Pulse Oximetry 99 Oxygen Delivery Room Air Oxygen Flow Rate Intake/Output Intake/Output: Intake & Output 12/15/24 12/16/24 12/17/24 12/18/24 23:59 23:59 23:59 23:59 Intake Total 1300 1170 Output Total 200 500 Balance 1100 670 Meds/Results Medications: Active Medications Generic Name Dose Route Start Last Admin Trade Name Freq PRN Reason Stop Dose Admin Acetaminophen 500 mg 12/17/24 14:52 12/18/24 08:12 Acetaminophen 500 Mg Tablet PO 500 mg Q6H PRN Administration Pain Rated 1-3 Hydrocodone Bitart/Acetaminophen 1 tab 12/17/24 14:52 Hydrocodone/Acetaminophen (*Crx) 5-325 Mg Tablet PO Q4H PRN Pain Rated 4-6 Aspirin 81 mg 12/17/24 21:00 12/18/24 08:13 Aspirin 81 Mg Enteric Tablet PO 81 mg Q12HR MELLISA Administration Famotidine 20 mg 12/17/24 21:00 12/18/24 08:13 Famotidine 20 Mg Tablet PO 20 mg Q12HR MELLISA Administration Ferrous Sulfate 325 mg 12/18/24 12:00 12/18/24 10:59 Ferrous Sulfate [address] BY MOUTH 325 mg DAILY@1200 MELLISA Administration Hydromorphone HCl 1 mg 12/17/24 15:01 12/17/24 17:52 Hydromorphone Hcl Inj (*Crx) 2 Mg/Ml Vial IV PUSH 1 mg Q2H PRN Administration Breakthrough Pain Rated 7-10 or NPO Hydromorphone HCl 0.5 mg 12/17/24 15:02 Hydromorphone Hcl Inj (*Crx) 2 Mg/Ml Vial IV PUSH Q2H PRN Breakthrough Pain Rated 4-6 or NPO Hydroxyzine Pamoate 50 mg 12/17/24 14:47 Hydroxyzine Pamoate 25 Mg Capsule PO Q4H PRN Itching Sodium Chloride 1,000 mls @ 100 mls/hr 12/17/24 06:30 12/18/24 08:13 Normal Saline Iv IV CONT 100 mls/hr .Q10H MELLISA Administration Lactated Ringer's 1,000 mls @ 30 mls/hr 12/17/24 12:45 12/17/24 16:31 Lr - Lactated Ringers Iv IV CONT Infused .Q24H MELLISA Infusion Lactated Ringer's 1,000 mls @ 30 mls/hr 12/17/24 12:45 12/17/24 17:53 Lr - Lactated Ringers Iv IV CONT Not Given .Q24H MELLISA Cefazolin Sodium 2 gm in 50 mls @ 100 mls/hr 12/17/24 22:00 12/18/24 13:03 Ancef 2 Gm/D5w 50 Ml IVPB 12/18/24 14:29 100 mls/hr Q8H MELLISA Administration Ibuprofen 800 mg in 200 mls @ 400 mls/hr 12/17/24 14:47 Caldolor 800 Mg/200 Ml IVPB Q6H PRN Breakthrough Pain Rated 1-3 or NPO Cefepime HCl 2 gm in 50 mls @ 100 mls/hr 12/18/24 11:00 12/18/24 10:56 Maxipime 2 Gm/Ns 50 Ml IVPB 12/24/24 21:29 100 mls/hr Q12HR MELLISA Administration Magnesium Hydroxide 30 ml 12/17/24 14:52 Magnesium Hydroxide Susp 30 Ml Udc PO BID PRN Constipation Metoclopramide HCl 10 mg 12/17/24 08:20 Metoclopramide Hcl Inj 10 Mg/2 Ml Vial IV PUSH Q6H PRN Nausea And Vomiting Midodrine 5 mg 12/18/24 09:00 12/18/24 12:47 Midodrine Hcl 2.5 Mg Tablet PO 5 mg TID MELLISA Administration Midodrine 10 mg 12/18/24 09:00 12/18/24 12:47 Midodrine Hcl 10 Mg Tablet PO 10 mg TID MELLISA Administration Morphine Sulfate 2 mg 12/17/24 06:29 12/17/24 08:59 Morphine Sulfate (*Crx) 2 Mg/Ml Inj IV PUSH 2 mg Q2H PRN Administration Pain Rated 7-10 Naloxone HCl 0.1 mg 12/17/24 14:47 Naloxone Hcl 0.4 Mg/Ml Vial IV PUSH Q2M PRN Opiate Reversal Ondansetron HCl 4 mg 12/17/24 08:20 Ondansetron Inj 4 Mg/2 Ml Vial IV PUSH Q6H PRN Nausea And Vomiting Ondansetron HCl 4 mg 12/17/24 12:43 Ondansetron Inj 4 Mg/2 Ml Vial IV PUSH ONCE PRN Nausea Ondansetron HCl 4 mg 12/17/24 14:47 Ondansetron Inj 4 Mg/2 Ml Vial IV PUSH Q4H PRN Nausea And Vomiting Oxycodone/Acetaminophen 1 tab 12/17/24 08:19 Oxycodone/Acetaminophen (*Crx) 10-325 Mg Tablet PO Q4H PRN Pain Rated 7-10 Pantoprazole Sodium 40 mg 12/17/24 17:00 12/18/24 08:12 Pantoprazole 40 Mg Tablet PO 40 mg BID MELLISA Administration Polyethylene Glycol 17 gm 12/18/24 09:00 12/18/24 08:13 Polyethylene Glycol 3350 17 Gm Powd.Pack PO 17 gm QAM MELLISA Administration Senna/Docusate Sodium 2 tab 12/17/24 17:00 12/18/24 08:13 Senna/Docusate Sodium Tablet PO 2 tab BID MELLISA Administration Radiology Results: ITS Impressions Chest X-Ray 12/17/24 06:11 Impression: 6.6 cm mass versus consolidation right upper lobe medially. Chest CT recommended to further evaluate. COPD. Hip/Pelvis X-Ray 12/17/24 06:12 Impression: Acute comminuted intertrochanteric fracture of the proximal right femur, as detailed above. Chest CT 12/17/24 09:39 Impression: Right upper lobe consolidation morphologically is most compatible with pneumonia. Hyperdense material within the pneumonia raises possibility of aspiration. Questionable areas of cavitation/necrosis within the pneumonia versus changes related to underlying severe diffuse emphysema. Follow-up to radiographic resolution is advised. Mediastinal and right hilar lymphadenopathy, presumably reactive. Labs Labs: Laboratory Results - last 24 hr 12/18/24 05:41 WBC 10.5 H RBC 3.79 L Hgb 12.2 L Hct 38.4 L MCV 101.3 H MCH 32.2 MCHC 31.8 L RDW 14.6 H Plt Count 252 MPV 10.0 Immature Gran % (Auto) 0.7 H Neut % (Auto) 84.6 H Lymph % (Auto) 5.4 L Hickman % (Auto) 8.8 H Eos % (Auto) 0.2 Baso % (Auto) 0.3 Lymph # (Auto) 0.57 L Hickman # (Auto) 0.9 H Eos # (Auto) 0.0 Baso # (Auto) 0.0 Abs Immat Gran (auto) 0.07 H Absolute Neuts (auto) 8.9 H Absolute Nucleated RBC 0.000 Nucleated RBC % 0.0 Sodium 143 Potassium 4.7 Chloride 110 H Carbon Dioxide 27 Anion Gap 6 BUN 24 H Creatinine 0.80 Estim Creat Clear Calc 48 Estimated GFR > 60 Glucose 104 Calcium 8.7 Magnesium 2.2
--- NOTE | 2024-12-18 13:31 | PM.CNPUL ---
Assessment and Plan Assessment and plan (1) Necrotizing pneumonia: Code(s): J85.0 - Gangrene and necrosis of lung Status: Acute Assessment and Plan: He has a large cavitary right upper lobe lung lesion with severe end-stage emphysema. Compared to his CT scan result that we have from [facility] September 23, 2024 the description sounds similar in some ways and improved. (2) End stage chronic obstructive pulmonary disease: Code(s): J44.9 - Chronic obstructive pulmonary disease, unspecified Status: Acute Assessment and Plan: On no treatment. He has advanced emphysema, has not wanted to see any doctors for routine care, continues to smoke. Wasting, losing wt for months at least 6 months, may be attributable to pulmonary cachexia or malignancy in the right lung. (3) Tobacco abuse: Code(s): Z72.0 - Tobacco use Status: Acute Assessment and Plan: 40-50 year history, still smoked up until this admission. He may benefit from nicotine patch. (4) Suspected pulmonary aspiration of food: Code(s): R09.89 - Other specified symptoms and signs involving the circulatory and respiratory systems Status: Acute Assessment and Plan: He does say he has been choking on food at home. He has got terrible dentition. Will check a MBS. (5) Frail elderly: Code(s): R54 - Age-related physical debility Status: Acute Assessment and Plan: Debilitated, BMI is 16, severe malnutrition, poor ability to ambulate, patient is making poor decisions and avoiding all sorts of necessary tasks in his personal life. Plan plan: Start duo-Nebs Q 6 hours. He has indwelling Gabriel, so he will not have problem with urinary retention with the ipratropium. I want to avoid giving him inhaled steroid since I do not know what is going on in his lung with a right upper lobe. If he has a fungal problem, inhaled steroids may make it worse. Also 1 avoid using an inhaler in general because he has so much emphysema I do not think he will have a lot of inspiratory capacity. He has a productive cough, will obtain sputum tomorrow am for Gram stain, fungal and mycobacterial studies. HIV screen. QuantiFERON GOLD. Sputum studies. Modified barium swallow - he reports difficultly swallowing, may be aspirating. He needs to have end-of-life discussions. He is wasting quickly, may have malignancy in the RUL. I think he would be at risk having a bronchoscopy and I do not think we would get any meaningful information. I would not be able to reach the cavitating lesion in the right upper lobe by bronchoscopy because it is too distal. I requested his prior information from [facility]. I just received a chest CT report from September 23, 2024. Large dense parenchymal consolidation involving the posterior half of the right upper lobe consistent with lobar pneumonia. Multiple small foci of air-filled cavitation noted in the infiltrate. Additionally there are patchy areas of irregular shaped consolidation in the anterior half the right upper lobe measuring up to 1.7 cm. Smaller consolidative area in the lateral segment of the right middle lobe. Small layering right parapneumonic effusion. Mild linear band of scarring versus atelectasis in the left upper lobe. Left lung otherwise free of infiltrate. Lung hyperinflation with severe centrilobular and panlobular emphysema. Enlarged 2.6 cm right paratracheal lymph node. Mild right hilar lymphadenopathy with maximum diameter 1.4 cm. Multiple coronary artery calcification. 6.2 x 3.4 cm fluid density in the upper pole of the left kidney either representing hydronephrosis or a large parapelvic cyst. History of Present Illness History of Present Illness Consult date: 12/18/24 Requesting physician: Greg Rasmussen MD Chief complaint: necrotizing pneumonia Narrative: pt was seen December 18, 2024 at 14:35 Room 330 History supplemented by younger brother Doc and partner Gera. NEW: Gera Dennis is 74-years old, admitted with a right intertrochanteric fracture and possible necrotizing pneumonia. He has an indwelling Gabriel, COPD, pulmonary nodules, has been at [facility] in Aug transferred from [facility] when he had urinary retention, possible GI bleed, and [facility] had beds. He was discharged on September 22 with an indwelling Gabriel, was not on oxygen. He was sent home with an order for several meds and 1 of them was Incruse, umeclidinium, but he stopped all the meds on his own. He had no follow-up with Urology, Pulmonary or GI. He has no primary care doctor. His brother and partner also tell me that he was in [facility] he may be 6 months ago with urinary retention, had some sort of prostate procedure but not a removal of his prostate. Patient came to [place] with a fall and right hip fracture December 16, went to [place] yesterday for repair. I was asked to see him for abnormal chest CT. He has been a smoker for at least 40 years about a pack per day. He has had tremendous weight loss in last 6-12 months, maybe 30 pounds. He is having difficulty swallowing. He is very short of breath with walking. He has poor appetite. He has a chronic cough with sputum production. He wheezes at times. He has had a few episodes of pneumonia in the last few years. He goes to urgent care when he needs treatment, does not have any continuity of care. He does not have home oxygen. He was sent home from the hospital on Incruse, does not use any inhaler currently. His brother and his partner know that he has had an abnormal chest CT for a long time. He has never had a bronchoscopy. He has never followed up with any pulmonary physician. He has not been told that he has cancer or any specific type of infection. He has never been tested for HIV. He has some sort of untreated mental condition. His partner Gera tells me that the patient does not have hallucinations or paranoid thoughts. He has never had an official diagnosis but he has significant problems managing his life. He quit paying taxes several years ago. He moved away to [place] in , moved back to this area but remained mostly estranged from his family. He has been in touch with his younger brother, Doc who is here today. 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 No . No exposure to vapors, fumes, dust, silica, asbestos. No high risk environment such is alf. DATA * 12/17/2024: Chest CT There are enlarged right paratracheal, right hilar, and subcarinal lymph nodes. Largest node is probably in the right paratracheal stripe measuring approximately 2.1 cm in diameter.. There is no filling defect in the pulmonary arterial tree to suggest pulmonary embolus. There is no evidence of aortic dissection or aneurysm. There is no evidence of pleural or pericardial effusion. Posterior right upper lobe consolidation is present, most compatible with pneumonia. Small amount of hyperdense material present in the consolidation raising possibility of aspiration. Questionable areas of necrosis within the pneumonia versus changes related to underlying severe emphysema. There is probable linear scarring in the lateral left upper lobe. Images through the upper abdomen reveal no abnormalities. Impression: Right upper lobe consolidation morphologically is most compatible with pneumonia. Hyperdense material within the pneumonia raises possibility of aspiration. Questionable areas of cavitation/necrosis within the pneumonia versus changes related to underlying severe diffuse emphysema. Follow-up to radiographic resolution is advised. Mediastinal and right hilar lymphadenopathy, presumably reactive. Review of Systems Review of Systems: All systems reviewed & are unremarkable except as noted in HPI and below [facility] Past Medical History Medical History Lung nodule Cachexia Social History Social History Smoking status: Light tobacco smoker Tobacco type: cigarettes Alcohol intake: never Substance use: current Substance use type: marijuana Do You Feel Safe in your Home?: Yes Lack of Transportation: No Lack of Food: Never True Current Housing: I Have Housing Concerned About Future Housing: No Difficulty Paying Gas/Electric Bills: No Difficulty Paying for Meds: No Currently Unemployed: No Education: Associate Degree Difficulty w/ Childcare or Family Care: No Spiritual care concerns: No Meds Home Medications and Allergies Home Medications ?Medication ?Instructions ?Recorded ?Confirmed ?Type ferrous sulfate 325 mg (65 mg 325 mg PO .daily @1200 12/17/24 12/17/24 History iron) tablet pantoprazole 40 mg tablet,delayed 40 mg PO BID 12/17/24 12/17/24 History release umeclidinium 62.5 mcg/actuation 1 inh inhalation Q24H 12/17/24 12/17/24 History blister powder for inhalation (Incruse Ellipta) Allergies Allergy/AdvReac Type Severity Reaction Status Date / Time No Known Allergies Allergy Verified 12/17/24 12:31 Vital Signs Vital Signs - 24 hr 12/17/24 14:45 12/17/24 15:00 12/17/24 15:15 Temperature 36.3 C L Pulse Rate 108 H 98 99 Respiratory Rate 18 21 H 21 H Blood Pressure 109/91 H 111/80 111/80 Pulse Oximetry 100 100 100 Oxygen Delivery Simple Face Mask Room Air Room Air Oxygen Flow Rate 8 12/17/24 15:30 12/17/24 15:45 12/17/24 16:00 Temperature Pulse Rate 96 96 95 Respiratory Rate 24 H 17 19 Blood Pressure 109/84 110/83 105/79 Pulse Oximetry 100 99 98 Oxygen Delivery Room Air Room Air Room Air Oxygen Flow Rate 12/17/24 16:15 12/17/24 16:30 12/17/24 20:00 Temperature Pulse Rate 97 97 Respiratory Rate 21 H 19 Blood Pressure 105/80 113/80 Pulse Oximetry 99 99 Oxygen Delivery Room Air Room Air Room Air Oxygen Flow Rate 12/17/24 20:34 12/18/24 00:27 12/18/24 00:36 Temperature 36.1 C L 36.2 C L Pulse Rate 95 98 Respiratory Rate 20 20 Blood Pressure 111/64 97/51 L 127/72 Pulse Oximetry 90 93 Oxygen Delivery Oxygen Flow Rate 12/18/24 04:34 12/18/24 08:00 12/18/24 08:07 Temperature 37.1 C Pulse Rate 102 H Respiratory Rate 24 H Blood Pressure 102/71 Pulse Oximetry 92 Oxygen Delivery Room Air Room Air Oxygen Flow Rate 12/18/24 08:34 12/18/24 08:45 Temperature 37.1 C Pulse Rate 105 H Respiratory Rate 20 Blood Pressure 102/68 Pulse Oximetry 99 Oxygen Delivery Room Air Oxygen Flow Rate Exam Narrative: GEN: Emaciated 74 year old man, extremely hard of hearing, cooperative with interview and exam. Alert, not in distress. Color is strange. HEENT: pupils are equal, EOMI, symmetrical face; oral membranes moist, terrible dentition, multiple missing teeth, has carious teeth. Mallampati II airway NECK: Trachea is midline CHEST: Equal air entry, symmetric excursion, hyperinflated thorax, extremely decreased breath sounds CV: Distant regular S1S2 no m/g/r ABD : (+) bowel sounds, soft Extremities : no clubbing, no cyanosis, no edema; nicotine staining on the right 1st fingernail PSYCH: pleasant, hard of hearing, has hearing aids out due to discomfort, gait is not tested Results Laboratory Findings 12/18/24 05:41 12/18/24 05:41 ABG, PT/INR, D-dimer: PT/INR, D-dimer PT 14.5 Seconds (11.1-14.7) 12/17/24 04:30 INR 1.1 12/17/24 04:30 Abnormal lab findings: Abnormal Labs 12/17/24 12/17/24 12/18/24 04:26 04:30 05:41 WBC 10.4 H 10.5 H RBC 4.55 L 3.79 L Hgb 12.2 L Hct 38.4 L MCV 101.3 H MCHC 31.8 L 31.8 L RDW 14.6 H Immature Gran % (Auto) 0.6 H 0.7 H Neut % (Auto) 83.0 H 84.6 H Lymph % (Auto) 7.5 L 5.4 L Bay % (Auto) 8.8 H Lymph # (Auto) 0.78 L 0.57 L Bay # (Auto) 0.8 H 0.9 H Abs Immat Gran (auto) 0.06 H 0.07 H Absolute Neuts (auto) 8.6 H 8.9 H Chloride 110 H Anion Gap 14 H BUN 30 H 24 H Glucose 141 H Urine Appearance Turbid H Urine pH >=9.0 H Urine Protein 2+ H Urine Ketones Trace H Leukocyte Esterase Rfl 2+ H Urine RBC 3-5 H Uric Acid Crystals Present H Urine Bacteria 4+ H Urine Yeast (Budding) Present H
[2024-12-18] MEDS: VANCOMYCIN 1,250 MG/NS 250 ML 1,250 MG/250 ML BAG 166.67 MG IVPB (14:44)
[2024-12-18] MEDS: ONDANSETRON INJ 4 MG/2 ML VIAL IV PUSH (17:04)
[2024-12-18] MEDS: NICOTINE (*PBKC) 14 MG PATCH 1 PATCH TRANSDERM (17:05)
--- NOTE | 2024-12-18 18:07 | PM.PNORT ---
Progress Note: A&P Assessment and Plan (1) Closed intertrochanteric fracture of right femur: Code(s): S72.141A - Displaced intertrochanteric fracture of right femur, initial encounter for closed fracture Status: Acute Plan POD 1 Right Hip IM nikky, doing well. Recommend 81mg Asa Daily for 4 weeks postOp Follow up with Dr Hirsch 2 weeks. Outing will be removed at this time. Dressing change in 4-5 days. Dry dressing. Time Spent With Patient Time with patient: less than 15 minutes Subjective Subjective Date/Time Seen: 12/18/24 18:07 Interval history: Moderate Right Hip Pain Exam Narrative: Right Hip Bandaged and dry Objective Data Vital Signs Vital Signs: Vital Signs - 24 hr 12/17/24 20:00 12/17/24 20:34 12/18/24 00:27 Temperature 36.1 C L 36.2 C L Pulse Rate 95 98 Respiratory Rate 20 20 Blood Pressure 111/64 97/51 L Pulse Oximetry 90 93 Oxygen Delivery Room Air 12/18/24 00:36 12/18/24 04:34 12/18/24 08:00 Temperature 37.1 C Pulse Rate 102 H Respiratory Rate 24 H Blood Pressure 127/72 102/71 Pulse Oximetry 92 Oxygen Delivery Room Air 12/18/24 08:07 12/18/24 08:34 12/18/24 08:45 Temperature 37.1 C Pulse Rate 105 H Respiratory Rate 20 Blood Pressure 102/68 Pulse Oximetry 99 Oxygen Delivery Room Air Room Air 12/18/24 12:34 12/18/24 16:34 Temperature 37.2 C 36.8 C Pulse Rate 73 80 Respiratory Rate 20 20 Blood Pressure 129/72 113/82 Pulse Oximetry 100 96 Oxygen Delivery Intake/Output Intake/Output: Intake & Output 12/15/24 12/16/24 12/17/24 12/18/24 23:59 23:59 23:59 23:59 Intake Total 1300 1720 Output Total 200 925 Balance 1100 795 Meds/Results Medications: Active Medications Generic Name Dose Route Start Last Admin Trade Name Freq PRN Reason Stop Dose Admin Acetaminophen 500 mg 12/17/24 14:52 12/18/24 08:12 Acetaminophen 500 Mg Tablet PO 500 mg Q6H PRN Administration Pain Rated 1-3 Hydrocodone Bitart/Acetaminophen 1 tab 12/17/24 14:52 Hydrocodone/Acetaminophen (*Crx) 5-325 Mg Tablet PO Q4H PRN Pain Rated 4-6 Albuterol/Ipratropium 3 ml 12/18/24 20:00 Ipratropium 0.5 Mg/Albuterol Sulfate 2.5 Mg Ampul.Neb 3 Ml INHALATION Q6HRT MELLISA Aspirin 81 mg 12/17/24 21:00 12/18/24 08:13 Aspirin 81 Mg Enteric Tablet PO 81 mg Q12HR MELLISA Administration Famotidine 20 mg 12/17/24 21:00 12/18/24 08:13 Famotidine 20 Mg Tablet PO 20 mg Q12HR MELLISA Administration Ferrous Sulfate 325 mg 12/18/24 12:00 12/18/24 10:59 Ferrous Sulfate [address] BY MOUTH 325 mg DAILY@1200 MELLISA Administration Hydromorphone HCl 1 mg 12/17/24 15:01 12/17/24 17:52 Hydromorphone Hcl Inj (*Crx) 2 Mg/Ml Vial IV PUSH 1 mg Q2H PRN Administration Breakthrough Pain Rated 7-10 or NPO Hydromorphone HCl 0.5 mg 12/17/24 15:02 Hydromorphone Hcl Inj (*Crx) 2 Mg/Ml Vial IV PUSH Q2H PRN Breakthrough Pain Rated 4-6 or NPO Hydroxyzine Pamoate 50 mg 12/17/24 14:47 Hydroxyzine Pamoate 25 Mg Capsule PO Q4H PRN Itching Sodium Chloride 1,000 mls @ 100 mls/hr 12/17/24 06:30 12/18/24 08:13 Normal Saline Iv IV CONT 100 mls/hr .Q10H MELLISA Administration Lactated Ringer's 1,000 mls @ 30 mls/hr 12/17/24 12:45 12/17/24 16:31 Lr - Lactated Ringers Iv IV CONT Infused .Q24H MELLISA Infusion Lactated Ringer's 1,000 mls @ 30 mls/hr 12/17/24 12:45 12/17/24 17:53 Lr - Lactated Ringers Iv IV CONT Not Given .Q24H MELLISA Ibuprofen 800 mg in 200 mls @ 400 mls/hr 12/17/24 14:47 Caldolor 800 Mg/200 Ml IVPB Q6H PRN Breakthrough Pain Rated 1-3 or NPO Cefepime HCl 2 gm in 50 mls @ 100 mls/hr 12/18/24 11:00 12/18/24 10:56 Maxipime 2 Gm/Ns 50 Ml IVPB 12/24/24 21:29 100 mls/hr Q12HR MELLISA Administration Vancomycin HCl 1,000 mg in 250 mls @ 250 mls/hr 12/19/24 15:00 Vancomycin 1,000 Mg/Ns 250 Ml IVPB Q24H MELLISA Magnesium Hydroxide 30 ml 12/17/24 14:52 Magnesium Hydroxide Susp 30 Ml Udc PO BID PRN Constipation Metoclopramide HCl 10 mg 12/17/24 08:20 Metoclopramide Hcl Inj 10 Mg/2 Ml Vial IV PUSH Q6H PRN Nausea And Vomiting Midodrine 5 mg 12/18/24 09:00 12/18/24 17:06 Midodrine Hcl 2.5 Mg Tablet PO 5 mg TID [facility] Administration Midodrine 10 mg 12/18/24 09:00 12/18/24 17:05 Midodrine Hcl 10 Mg Tablet PO 10 mg TID MELLISA Administration Morphine Sulfate 2 mg 12/17/24 06:29 12/17/24 08:59 Morphine Sulfate (*Crx) 2 Mg/Ml Inj IV PUSH 2 mg Q2H PRN Administration Pain Rated 7-10 Naloxone HCl 0.1 mg 12/17/24 14:47 Naloxone Hcl 0.4 Mg/Ml Vial IV PUSH Q2M PRN Opiate Reversal Nicotine 1 patch 12/18/24 16:25 12/18/24 17:05 Nicotine (*Pbkc) 14 Mg Patch TRANSDERM 1 patch DAILY MELLISA Administration Ondansetron HCl 4 mg 12/17/24 08:20 12/18/24 17:04 Ondansetron Inj 4 Mg/2 Ml Vial IV PUSH 4 mg Q6H PRN Administration Nausea And Vomiting Ondansetron HCl 4 mg 12/17/24 12:43 Ondansetron Inj 4 Mg/2 Ml Vial IV PUSH ONCE PRN Nausea Ondansetron HCl 4 mg 12/17/24 14:47 Ondansetron Inj 4 Mg/2 Ml Vial IV PUSH Q4H PRN Nausea And Vomiting Oxycodone/Acetaminophen 1 tab 12/17/24 08:19 Oxycodone/Acetaminophen (*Crx) 10-325 Mg Tablet PO Q4H PRN Pain Rated 7-10 Pantoprazole Sodium 40 mg 12/17/24 17:00 12/18/24 17:06 Pantoprazole 40 Mg Tablet PO 40 mg BID MELLISA Administration Polyethylene Glycol 17 gm 12/18/24 09:00 12/18/24 08:13 Polyethylene Glycol 3350 17 Gm Powd.Pack PO 17 gm QAM MELLISA Administration Senna/Docusate Sodium 2 tab 12/17/24 17:00 12/18/24 17:05 Senna/Docusate Sodium Tablet PO 2 tab BID MELLISA Administration Sodium Chloride 6 ml 12/19/24 05:00 Sodium Chlor 3% 15 Ml Neb (Respiratory Therapy) INHALATION 12/21/24 05:01 DAILY@0500 [facility] Radiology Results: ITS Impressions Chest X-Ray 12/17/24 06:11 Impression: 6.6 cm mass versus consolidation right upper lobe medially. Chest CT recommended to further evaluate. COPD. Hip/Pelvis X-Ray 12/17/24 06:12 Impression: Acute comminuted intertrochanteric fracture of the proximal right femur, as detailed above. Chest CT 12/17/24 09:39 Impression: Right upper lobe consolidation morphologically is most compatible with pneumonia. Hyperdense material within the pneumonia raises possibility of aspiration. Questionable areas of cavitation/necrosis within the pneumonia versus changes related to underlying severe diffuse emphysema. Follow-up to radiographic resolution is advised. Mediastinal and right hilar lymphadenopathy, presumably reactive. Labs Labs: Laboratory Results - last 24 hr 12/18/24 05:41 WBC 10.5 H RBC 3.79 L Hgb 12.2 L Hct 38.4 L MCV 101.3 H MCH 32.2 MCHC 31.8 L RDW 14.6 H Plt Count 252 MPV 10.0 Immature Gran % (Auto) 0.7 H Neut % (Auto) 84.6 H Lymph % (Auto) 5.4 L [place] % (Auto) 8.8 H Eos % (Auto) 0.2 Baso % (Auto) 0.3 Lymph # (Auto) 0.57 L [place] # (Auto) 0.9 H Eos # (Auto) 0.0 Baso # (Auto) 0.0 Abs Immat Gran (auto) 0.07 H Absolute Neuts (auto) 8.9 H Absolute Nucleated RBC 0.000 Nucleated RBC % 0.0 Sodium 143 Potassium 4.7 Chloride 110 H Carbon Dioxide 27 Anion Gap 6 BUN 24 H Creatinine 0.80 Estim Creat Clear Calc 48 Estimated GFR > 60 Glucose 104 Calcium 8.7 Magnesium 2.2
[2024-12-18 18:34] LABS: MRSA (PCR) NOT DETECTED (NOT DETECTE)
[2024-12-18] MEDS: IPRATROPIUM 0.5 MG/ALBUTEROL SULFATE 2.5 MG AMPUL.NEB 3 ML INHALATION (20:29)
[2024-12-19] VITALS (7 sets, daily range): BP systolic 94–119; BP diastolic 68–76; PULSE 73–84; RESP 13–20; TEMP 36.2–36.6; O2SAT 97–99
[2024-12-19] MEDS: HYDROmorphone HCL INJ (*CRX) 2 MG/ML VIAL 1 MG IV PUSH (00:11)
--- NOTE | 2024-12-19 01:16 | PCRCNOTE ---
Patient did not want to be woken for 0200 breathing tx on 12/19/24. Patient was very upset to be woken at 2000 for his first treatment on 12/18/24. Patient appeared angry with therapist, although, he took the breathing treatment. See next scheduled tx at 0800.
--- NOTE | 2024-12-19 05:43 | PCRCNOTE ---
Patient refused sodium chloride breathing treatment this morning. Patient was very agitated when the therapist woke him up and uncooperative.
[2024-12-19 06:25] LABS: Basophils Percent Auto 0.4 % (0.2-1.2); Eosinophils Percent Auto 0.6 % (0-4.4); Hematocrit 31.7 % (42.0-52.0); Hemoglobin 10.1 g/dL (14.0-18.0); Immature Granulocyte Absolute 0.04 K/mm3 (0.00-0.031); Immature Granulocyte Percent A 0.6 % (0-0.5); Lymphocytes Absolute Auto 0.56 K/mm3 (0.9-3.2); Lymphocytes Percent Auto 7.8 % (18.3-44.2); Mean Corpuscular HGB Conc 31.9 g/dl (32-36); Mean Corpuscular Volume 100.3 fl (80-100); Mean Platelet Volume 10.4 fl (7.4-10.4); Monocytes Absolute Auto 0.7 K/mm3 (0.1-0.6); Neutrophils Absolute Auto 5.9 K/mm3 (1.3-6.7); Neutrophils Percent Auto 81.6 % (45.5-73.1); Platelet Count Result 196 k/mm3 (150-375); Red Blood Count 3.16 M/mm3 (4.6-6.20); Red Cell Distribution Width 14.3 % (11.5-14.5); White Blood Count 7.2 K/mm3 (4.5-10.0)
[2024-12-19 06:32] LABS: Anion Gap 4 mmol/L (4-12); Blood Urea Nitrogen 19 mg/dL (9-20); Calcium 7.8 mg/dL (8.4-10.2); Carbon Dioxide 24 mmol/L (22-30); Chloride 113 mmol/L (98-107); Estimated CRCL calculation 55 ml/min; Estimated Glomerular Filt Rate > 60; Glucose 86 mg/dL (65-110); Potassium 3.3 mmol/L (3.4-5.0); Sodium 141 mmol/L (137-145)
[2024-12-19] MEDS: IPRATROPIUM 0.5 MG/ALBUTEROL SULFATE 2.5 MG AMPUL.NEB 3 ML INHALATION ×2 (07:48→20:14)
[2024-12-19] MEDS: oxyCODONE/ACETAMINOPHEN (*CRX) 10-325 MG TABLET 1 TAB PO (08:20)
[2024-12-19] MEDS: ASPIRIN 81 MG ENTERIC TABLET PO (08:21)
[2024-12-19] MEDS: NICOTINE (*PBKC) 14 MG PATCH 1 PATCH TRANSDERM (08:21)
[2024-12-19] MEDS: FAMOTIDINE 20 MG TABLET PO (08:21)
[2024-12-19] MEDS: SENNA/DOCUSATE SODIUM TABLET 2 TAB PO (08:21)
[2024-12-19] MEDS: polyethylene glycoL 3350 17 GM POWD.PACK PO (08:21)
[2024-12-19] MEDS: SODIUM CHLORIDE 0.9% IV 1,000 ML 100 ML IV CONT (08:21)
[2024-12-19] MEDS: PANTOPRAZOLE 40 MG TABLET PO (08:21)
[2024-12-19] MEDS: CEFEPIME 2 GM/NS 50 ML 2 GM/50 ML BAG IVPB ×2 (08:22→21:00)
[2024-12-19] MEDS: FERROUS SULFATE 325 MG TABLET DR BY MOUTH (11:34)
--- NOTE | 2024-12-19 12:13 | P.PNPL_ITS ---
Progress Note: A&P Assessment and Plan (1) Necrotizing pneumonia: Code(s): J85.0 - Gangrene and necrosis of lung Status: Acute Assessment and Plan: He has a large cavitary right upper lobe lung lesion with severe end-stage emphysema. Compared to his CT scan result that we have from [facility] September 23, 2024 the description sounds similar in some ways and improved. Infection vs malignancy. (2) End stage chronic obstructive pulmonary disease: Code(s): J44.9 - Chronic obstructive pulmonary disease, unspecified Status: Acute Assessment and Plan: On no out patient treatment. He has advanced emphysema, has not wanted to see any doctors for routine care, continues to smoke. Wasting, losing wt for months at least 6 months, may be attributable to pulmonary cachexia or malignancy in the right lung. (3) Tobacco abuse: Code(s): Z72.0 - Tobacco use Status: Acute Assessment and Plan: 40-50 year history, still smoked up until this admission. On nicotine patch. (4) Suspected pulmonary aspiration of food: Code(s): R09.89 - Other specified symptoms and signs involving the circulatory and respiratory systems Status: Acute Assessment and Plan: He does say he has been choking on food at home, poor dentition. Swallow evaluation indicated. (5) Frail elderly: Code(s): R54 - Age-related physical debility Status: Acute Assessment and Plan: Debilitated, BMI is 16, severe malnutrition, poor ability to ambulate, patient is making poor decisions and avoiding all sorts of necessary tasks in his personal life. (6) Hyperchloremia: Code(s): E87.8 - Other disorders of electrolyte and fluid balance, not elsewhere classified Status: Acute Assessment and Plan: Serum chloride increasing, 113; stopped NS. Change fluids to D5LR wiht 40 meq KCL @ 60 ml/hour Plan plan: 1) Continue duo-Nebs Q 6 hours for COPD. 2) Continue Cefepime and Vancomycin for possible pneumonia. 3) Stop NS due to elevated chloride 113. He has been on NS, contributing to hyperchloremia. 4) Change fluids to D5LR with K+40 meq @ 60/hour; he is not taking much orally, needs dextrose, replacing K+. 5) Bedside swallow. The patient told the staff that he thinks he had this test at [facility]. That was 3 months ago, he has lost significant weight since then. It is reasonable to get a new study now. He is in a different situation, needs to be evaluated as he is now, not waiting on prior swallow study. Looking at this man, frail, wasted, gaunt and strange, it is clear that something is wrong with his swallow. 6) Change diet to minced and moist texture with supplements if he passes his swallow. 7) Labs pending include QuantiFERON gold; sputum was ordered, not sure that he will be strong enough to expectorate to send specimen. HIV screen. QuantiFERON GOLD. Sputum studies. Modified barium swallow - he reports difficultly swallowing, may be aspirating. I want to avoid giving him inhaled steroid since I do not know what is going on in his lung with a right upper lobe. If he has a fungal problem, inhaled steroids may make it worse. It is reasonable to avoid using an inhaler in general because he has so much emphysema I do not think he will have a lot of inspiratory capacity to activate it. It will not benefot him. . 8) HIs brother Doc told me that he agreed to DNR status, and will agree to go for rehab after his discharge. He is wasting quickly, may have malignancy in the RUL. I think he would be at risk having a bronchoscopy and I do not think we would get any meaningful information. I would not be able to reach the cavitating lesion in the right upper lobe by bronchoscopy because it is too distal. I spoke with the patient and his brother at the bedside. I will not be staffing consultant this weekend, will be available by phone. Subjective Date/time seen: 12/19/24 12:13 Interval history: 12/19/2024; follow up visit; His brother Doc is present. Patient is sitting up in a chair, in room air. Feels better, less short of breath. His urine grew Providencia rettgeri and Alcaligenes faecalis; he had indwelling Gabriel that has not been changed for months. Providencia is a notorious opportunistic pathogen capable of causing serious nosocomial infections, mainly urinary tract infec tions (UTIs). These are hard to treat due to the resistance seen in clinical strains. Alcaligenes is a rare a bacterium that can cause urinary tract infections (UTIs), though it's considered a rare cause.?He is on Cefepime & vanco. May help with possible pneumonia. HIV testing is pending, sent 12/18. 12/18/2024; new consult; Gera Dennis is 74-years old, admitted with a right hip fracture, had surgery 12/17. He has an abnormal chest CT with possible necrotizing pneumonia. He has an indwelling Gabriel, COPD, pulmonary nodules, has been at [facility] in Aug transferred from [facility] when he had urinary retention, possible GI bleed, and [facility] had beds. He was discharged on September 22 with an indwelling Gabriel, was not on oxygen. He was sent home with an order for several meds and 1 of them was Incruse, umeclidinium, but he stopped all the meds on his own. He had no follow-up with Urology, Pulmonary or GI. He has no primary care doctor. His brother and partner also tell me that he was in [facility] he may be 6 months ago with urinary retention, had some sort of prostate procedure but not a removal of his prostate. Patient came to [facility] with a fall and right hip fracture December 16, went to OR yesterday for repair. I was asked to see him for abnormal chest CT. He has been a smoker for at least 40 years about a pack per day. He has had tremendous weight loss in last 6-12 months, maybe 30 pounds. He is having difficulty swallowing. He is very short of breath with walking. He has poor appetite. He has a chronic cough with sputum production. He wheezes at times. He has had a few episodes of pneumonia in the last few years. He goes to urgent care when he needs treatment, does not have any continuity of care. He does not have home oxygen. He was sent home from the hospital on Incruse, does not use any inhaler currently. His brother and his partner know that he has had an abnormal chest CT for a long time. He has never had a bronchoscopy. He has never followed up with any pulmonary physician. He has not been told that he has cancer or any specific type of infection. He has never been tested for HIV. He has some sort of untreated mental condition. His partner Gera tells me that the patient does not have hallucinations or paranoid thoughts. He has never had an official diagnosis but he has significant problems managing his life. He quit paying taxes several years ago. He moved away to [place] in , moved back to this area but remained mostly estranged from his family. He has been in touch with his younger brother, Doc who is here today. 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 No . No exposure to vapors, fumes, dust, silica, asbestos. No high risk environment such is intermediate. DATA * 12/17/2024: Chest CT There are enlarged right paratracheal, right hilar, and subcarinal lymph nodes. Largest node is probably in the right paratracheal stripe measuring approximately 2.1 cm in diameter.. There is no filling defect in the pulmonary arterial tree to suggest pulmonary embolus. There is no evidence of aortic dissection or aneurysm. There is no evidence of pleural or pericardial effusion. Posterior right upper lobe consolidation is present, most compatible with pneumonia. Small amount of hyperdense material present in the consolidation raising possibility of aspiration. Questionable areas of necrosis within the pneumonia versus changes related to underlying severe emphysema. There is probable linear scarring in the lateral left upper lobe. Images through the upper abdomen reveal no abnormalities. Impression: Right upper lobe consolidation morphologically is most compatible with pneumonia . Hyperdense material within the pneumonia raises possibility of aspiration. Questionable areas of cavitation/necrosis within the pneumonia versus changes related to underlying severe diffuse emphysema. Follow-up to radiographic resolution is advised. Mediastinal and right hilar lymphadenopathy, presumably reactive. * 09/23/2024. chest CT [facility]; Large dense parenchymal consolidation involving the posterior half of the right upper lobe consistent with lobar pneumonia. Multiple small foci of air-filled cavitation noted in the infiltrate. Additionally there are patchy areas of irregular shaped consolidation in the anterior half the right upper lobe measuring up to 1.7 cm. Smaller consolidative area in the lateral segment of the right middle lobe. Small layering right parapneumonic effusion. Mild linear band of scarring versus atelectasis in the left upper lobe. Left lung otherwise free of infiltrate. Lung hyperinflation with severe centrilobular and panlobular emphysema. Enlarged 2.6 cm right paratracheal lymph node. Mild right hilar lymphadenopathy with maximum diameter 1.4 cm. Multiple coronary artery calcification. 6.2 x 3.4 cm fluid density in the upper pole of the left kidney either representing hydronephrosis or a large parapelvic cyst. Review of Systems Review of Systems: All systems reviewed & are unremarkable except as noted in HPI and below Exam Narrative: GEN: Emaciated 74 year old man, extremely hard of hearing. Alert, not in distress. HEENT: pupils are equal, EOMI, symmetrical face; oral membranes moist, terrible dentition, multiple missing teeth, has carious teeth. Mallampati II airway NECK: Trachea is midline CHEST: Equal air entry, symmetric excursion, hyperinflated thorax, extremely decreased breath sounds CV: Distant regular S1S2 no m/g/r ABD : (+) bowel sounds, soft Extremities : no clubbing, no cyanosis, no edema; nicotine staining on the right 1st fingernail PSYCH: pleasant, hard of hearing, has hearing aids out due to discomfort, gait is not tested Objective Data Vital Signs Vital Signs: Vital Signs - 24 hr 12/18/24 12:34 12/18/24 16:34 12/18/24 20:00 Temperature 37.2 C 36.8 C Pulse Rate 73 80 Respiratory Rate 20 20 Blood Pressure 129/72 113/82 Pulse Oximetry 100 96 Oxygen Delivery Room Air 12/18/24 20:31 12/18/24 20:37 12/19/24 05:57 Temperature 36.2 C L Pulse Rate 80 80 81 Respiratory Rate 19 18 13 Blood Pressure 94/68 L Pulse Oximetry 99 Oxygen Delivery 12/19/24 07:48 12/19/24 07:48 12/19/24 07:57 Temperature Pulse Rate 76 73 Respiratory Rate 14 14 Blood Pressure Pulse Oximetry 97 Oxygen Delivery Room Air 12/19/24 08:00 Temperature Pulse Rate Respiratory Rate Blood Pressure Pulse Oximetry Oxygen Delivery Room Air Intake/Output Intake/Output: Intake & Output 12/16/24 12/17/24 12/18/24 12/19/24 23:59 23:59 23:59 23:59 Intake Total 1300 2820 1200 Output Total 200 925 700 Balance 1100 1895 500 Meds/Results Medications: Active Medications Generic Name Dose Route Start Last Admin Trade Name Freq PRN Reason Stop Dose Admin Acetaminophen 500 mg 12/17/24 14:52 12/18/24 08:12 Acetaminophen 500 Mg Tablet PO 500 mg Q6H PRN Administration Pain Rated 1-3 Hydrocodone Bitart/Acetaminophen 1 tab 12/17/24 14:52 Hydrocodone/Acetaminophen (*Crx) 5-325 Mg Tablet PO Q4H PRN Pain Rated 4-6 Albuterol/Ipratropium 3 ml 12/18/24 20:00 12/19/24 07:48 Ipratropium 0.5 Mg/Albuterol Sulfate 2.5 Mg Ampul.Neb 3 Ml INHALATION 3 ml Q6HRT MELLISA Administration Aspirin 81 mg 12/17/24 21:00 12/19/24 08:21 Aspirin 81 Mg Enteric Tablet PO 81 mg Q12HR MELLISA Administration Famotidine 20 mg 12/17/24 21:00 12/19/24 08:21 Famotidine 20 Mg Tablet PO 20 mg Q12HR MELLISA Administration Ferrous Sulfate 325 mg 12/18/24 12:00 12/19/24 11:34 Ferrous Sulfate [address] BY MOUTH 325 mg DAILY@1200 MELLISA Administration Hydromorphone HCl 1 mg 12/17/24 15:01 12/19/24 00:11 Hydromorphone Hcl Inj (*Crx) 2 Mg/Ml Vial IV PUSH 1 mg Q2H PRN Administration Breakthrough Pain Rated 7-10 or NPO Hydromorphone HCl 0.5 mg 12/17/24 15:02 Hydromorphone Hcl Inj (*Crx) 2 Mg/Ml Vial IV PUSH Q2H PRN Breakthrough Pain Rated 4-6 or NPO Hydroxyzine Pamoate 50 mg 12/17/24 14:47 Hydroxyzine Pamoate 25 Mg Capsule PO Q4H PRN Itching Sodium Chloride 1,000 mls @ 100 mls/hr 12/17/24 06:30 12/19/24 08:21 Normal Saline Iv IV CONT 100 mls/hr .Q10H MELLISA Administration Ibuprofen 800 mg in 200 mls @ 400 mls/hr 12/17/24 14:47 Caldolor 800 Mg/200 Ml IVPB Q6H PRN Breakthrough Pain Rated 1-3 or NPO Cefepime HCl 2 gm in 50 mls @ 100 mls/hr 12/18/24 11:00 12/19/24 08:22 Maxipime 2 Gm/Ns 50 Ml IVPB 12/24/24 21:29 100 mls/hr Q12HR MELLISA Administration Vancomycin HCl 1,000 mg in 250 mls @ 250 mls/hr 12/19/24 15:00 Vancomycin 1,000 Mg/Ns 250 Ml IVPB Q24H MELLISA Magnesium Hydroxide 30 ml 12/17/24 14:52 Magnesium Hydroxide Susp 30 Ml Udc PO BID PRN Constipation Metoclopramide HCl 10 mg 12/17/24 08:20 Metoclopramide Hcl Inj 10 Mg/2 Ml Vial IV PUSH Q6H PRN Nausea And Vomiting Midodrine 5 mg 12/18/24 09:00 12/19/24 08:23 Midodrine Hcl 2.5 Mg Tablet PO Not Given TID [facility] Midodrine 10 mg 12/18/24 09:00 12/19/24 08:22 Midodrine Hcl 10 Mg Tablet PO Not Given TID MELLISA Morphine Sulfate 2 mg 12/17/24 06:29 12/17/24 08:59 Morphine Sulfate (*Crx) 2 Mg/Ml Inj IV PUSH 2 mg Q2H PRN Administration Pain Rated 7-10 Naloxone HCl 0.1 mg 12/17/24 14:47 Naloxone Hcl 0.4 Mg/Ml Vial IV PUSH Q2M PRN Opiate Reversal Nicotine 1 patch 12/18/24 16:25 12/19/24 08:21 Nicotine (*Pbkc) 14 Mg Patch TRANSDERM 1 patch DAILY MELLISA Administration Ondansetron HCl 4 mg 12/17/24 08:20 12/18/24 17:04 Ondansetron Inj 4 Mg/2 Ml Vial IV PUSH 4 mg Q6H PRN Administration Nausea And Vomiting Ondansetron HCl 4 mg 12/17/24 12:43 Ondansetron Inj 4 Mg/2 Ml Vial IV PUSH ONCE PRN Nausea Ondansetron HCl 4 mg 12/17/24 14:47 Ondansetron Inj 4 Mg/2 Ml Vial IV PUSH Q4H PRN Nausea And Vomiting Oxycodone/Acetaminophen 1 tab 12/17/24 08:19 12/19/24 08:20 Oxycodone/Acetaminophen (*Crx) 10-325 Mg Tablet PO 1 tab Q4H PRN Administration Pain Rated 7-10 Pantoprazole Sodium 40 mg 12/17/24 17:00 12/19/24 08:21 Pantoprazole 40 Mg Tablet PO 40 mg BID [facility] Administration Polyethylene Glycol 17 gm 12/18/24 09:00 12/19/24 08:21 Polyethylene Glycol 3350 17 Gm Powd.Pack PO 17 gm QAM MELLISA Administration Senna/Docusate Sodium 2 tab 12/17/24 17:00 12/19/24 08:21 Senna/Docusate Sodium Tablet PO 2 tab BID [facility] Administration Sodium Chloride 6 ml 12/19/24 05:00 12/19/24 05:43 Sodium Chlor 3% 15 Ml Neb (Respiratory Therapy) INHALATION 12/21/24 05:01 Not Given DAILY@0500 [facility] Radiology Results: ITS Impressions Chest X-Ray 12/17/24 06:11 Impression: 6.6 cm mass versus consolidation right upper lobe medially. Chest CT recommended to further evaluate. COPD. Hip/Pelvis X-Ray 12/17/24 06:12 Impression: Acute comminuted intertrochanteric fracture of the proximal right femur, as detailed above. Chest CT 12/17/24 09:39 Impression: Right upper lobe consolidation morphologically is most compatible with pneumonia. Hyperdense material within the pneumonia raises possibility of aspiration. Questionable areas of cavitation/necrosis within the pneumonia versus changes related to underlying severe diffuse emphysema. Follow-up to radiographic resolution is advised. Mediastinal and right hilar lymphadenopathy, presumably reactive. Labs Labs: Laboratory Results - last 24 hr 12/18/24 12/19/24 17:14 05:57 WBC 7.2 RBC 3.16 L Hgb 10.1 L Hct 31.7 L MCV 100.3 H MCH 32.0 MCHC 31.9 L RDW 14.3 Plt Count 196 MPV 10.4 Immature Gran % (Auto) 0.6 H Neut % (Auto) 81.6 H Lymph % (Auto) 7.8 L [place] % (Auto) 9.0 H Eos % (Auto) 0.6 Baso % (Auto) 0.4 Lymph # (Auto) 0.56 L [place] # (Auto) 0.7 H Eos # (Auto) 0.0 Baso # (Auto) 0.0 Abs Immat Gran (auto) 0.04 H Absolute Neuts (auto) 5.9 Absolute Nucleated RBC 0.000 Nucleated RBC % 0.0 Sodium 141 Potassium 3.3 L Chloride 113 H Carbon Dioxide 24 Anion Gap 4 BUN 19 Creatinine 0.70 Estim Creat Clear Calc 55 Estimated GFR > 60 Glucose 86 Calcium 7.8 L Nasal MRSA (PCR) Not detected
--- NOTE | 2024-12-19 12:39 | P.PNIM_ITS ---
Progress Note: A&P Assessment and Plan (1) Closed intertrochanteric fracture of right femur: Code(s): S72.141A - Displaced intertrochanteric fracture of right femur, initial encounter for closed fracture Status: Acute Assessment and Plan: Ortho consult noted. Will start physical therapy. (2) Fall from ground level: Code(s): W18.30XA - Fall on same level, unspecified, initial encounter Status: Acute Assessment and Plan: Physical therapy and pain management (3) Lung nodule: Code(s): R91.1 - Solitary pulmonary nodule Status: Acute Assessment and Plan: Out Patient follow up and monitoring (4) Necrotizing pneumonia: Code(s): J85.0 - Gangrene and necrosis of lung Status: Acute Assessment and Plan: Continue IV antibiotics Plan Right hip fracture Patient had a fall and sustained severe right hip pain Hip pelvis x-ray showed acute comminuted intertrochanteric fracture of the proximal right femur Optimize pain management Consult orthopedic surgeon Status post Right Hip Intra-Medullary Shiv Fixation of IT Fracture 12/17 Start PT OT, cleared by orthopedic surgeon Necrotizing pneumonia Lung nodule was found on x-ray initially. Chest x-ray shows 6.6 cm mass versus consolidation right upper lobe medially. CT showed right upper lobe consolidation morphologically is most compatible with pneumonia. Hyperdense material within the pneumonia raises possibility of aspiration. Questionable areas of cavitation/necrosis within the pneumonia versus changes related to underlying severe diffuse emphysema Patient is on cefepime, start vancomycin IV Consult needle maker for evaluation treatment Dehydration Labs reviewed, elevated BUN creatinine ratio 30/0.97 Start normal saline IV 100 mL/hour Indwelling folic catheter, urinary retention Consult urologist for evaluation treatment Complicated UTI due to indwelling catheter UA shows pyuria, urine culture grows Providencia rettger and Alcaligenes faecalis Switch from Ancef to cefepime IV Severe malnutrition Consult dietitian DVT prophylaxis per orthopedic surgeon Subjective Date/time seen: 12/19/24 12:39 Interval history: 12/19/2024; follow up visit Patient was seen during the morning rounds today. Pain controlled No sob or chest pain No abdominal pain Mood stable Review of Systems Review of Systems: ROS negative except above Exam Narrative: GENERAL: Pleasant, in no acute distress. Severe malnutrition - EYES: EOMI. Anicteric. - HENT: Moist mucous membranes. Heart h earing - LUNGS: Clear to auscultation bilateral ly, no wheezing, rhonchi, or rales. - CARDIOVASCULAR: Regular rate and rhyth m. No murmur. No JVD. - ABDOMEN: Soft, non-tender and non-dist ended. No palpable masses. - EXTREMITIES: No edema. Peripheral puls es 2+. Restricted movement of right hip because of pain - NEUROLOGIC: No focal neurological defi cits. CN II-XII grossly intact. - PSYCHIATRIC: Awake, Alert and oriented x 3. Appropriate mood and affect. - SKIN: Surgical wound is dry and clean - LYMPH: No cervical lymphadenopathy. Objective Data Vital Signs Vital Signs: Vital Signs - 24 hr 12/18/24 16:34 12/18/24 20:00 12/18/24 20:31 Temperature 36.8 C Pulse Rate 80 80 Respiratory Rate 20 19 Blood Pressure 113/82 Pulse Oximetry 96 Oxygen Delivery Room Air 12/18/24 20:37 12/19/24 05:57 12/19/24 07:48 Temperature 36.2 C L Pulse Rate 80 81 76 Respiratory Rate 18 13 14 Blood Pressure 94/68 L Pulse Oximetry 99 Oxygen Delivery 12/19/24 07:48 12/19/24 07:57 12/19/24 08:00 Temperature Pulse Rate 73 Respiratory Rate 14 Blood Pressure Pulse Oximetry 97 Oxygen Delivery Room Air Room Air Intake/Output Intake/Output: Intake & Output 12/16/24 12/17/24 12/18/24 12/19/24 23:59 23:59 23:59 23:59 Intake Total 1300 2820 1200 Output Total 200 925 700 Balance 1100 1895 500 Meds/Results Medications: Active Medications Generic Name Dose Route Start Last Admin Trade Name Freq PRN Reason Stop Dose Admin Acetaminophen 500 mg 12/17/24 14:52 12/18/24 08:12 Acetaminophen 500 Mg Tablet PO 500 mg Q6H PRN Administration Pain Rated 1-3 Hydrocodone Bitart/Acetaminophen 1 tab 12/17/24 14:52 Hydrocodone/Acetaminophen (*Crx) 5-325 Mg Tablet PO Q4H PRN Pain Rated 4-6 Albuterol/Ipratropium 3 ml 12/18/24 20:00 12/19/24 07:48 Ipratropium 0.5 Mg/Albuterol Sulfate 2.5 Mg Ampul.Neb 3 Ml INHALATION 3 ml Q6HRT MELLISA Administration Aspirin 81 mg 12/17/24 21:00 12/19/24 08:21 Aspirin 81 Mg Enteric Tablet PO 81 mg Q12HR [facility] Administration Enoxaparin Sodium 40 mg 12/20/24 09:00 Enoxaparin 40 Mg/0.4 Ml Syringe SUB-Q DAILY [facility] Famotidine 20 mg 12/17/24 21:00 12/19/24 08:21 Famotidine 20 Mg Tablet PO 20 mg Q12HR [facility] Administration Ferrous Sulfate 325 mg 12/18/24 12:00 12/19/24 11:34 Ferrous Sulfate [address] BY MOUTH 325 mg DAILY@1200 [facility] Administration Hydromorphone HCl 1 mg 12/17/24 15:01 12/19/24 00:11 Hydromorphone Hcl Inj (*Crx) 2 Mg/Ml Vial IV PUSH 1 mg Q2H PRN Administration Breakthrough Pain Rated 7-10 or NPO Hydromorphone HCl 0.5 mg 12/17/24 15:02 Hydromorphone Hcl Inj (*Crx) 2 Mg/Ml Vial IV PUSH Q2H PRN Breakthrough Pain Rated 4-6 or NPO Hydroxyzine Pamoate 50 mg 12/17/24 14:47 Hydroxyzine Pamoate 25 Mg Capsule PO Q4H PRN Itching Cefepime HCl 2 gm in 50 mls @ 100 mls/hr 12/18/24 11:00 12/19/24 08:22 Maxipime 2 Gm/Ns 50 Ml IVPB 12/24/24 21:29 100 mls/hr Q12HR [facility] Administration Vancomycin HCl 1,000 mg in 250 mls @ 250 mls/hr 12/19/24 15:00 Vancomycin 1,000 Mg/Ns 250 Ml IVPB Q24H [facility] Potassium Chloride 40 meq/ 1,020 mls @ 60 mls/hr 12/19/24 13:00 Dextrose/Lactated Ringer's IV CONT .Q17H [facility] Magnesium Hydroxide 30 ml 12/17/24 14:52 Magnesium Hydroxide Susp 30 Ml Udc PO BID PRN Constipation Metoclopramide HCl 10 mg 12/17/24 08:20 Metoclopramide Hcl Inj 10 Mg/2 Ml Vial IV PUSH Q6H PRN Nausea And Vomiting Midodrine 5 mg 12/18/24 09:00 12/19/24 08:23 Midodrine Hcl 2.5 Mg Tablet PO Not Given TID [facility] Midodrine 10 mg 12/18/24 09:00 12/19/24 08:22 Midodrine Hcl 10 Mg Tablet PO Not Given TID [facility] Morphine Sulfate 2 mg 12/17/24 06:29 12/17/24 08:59 Morphine Sulfate (*Crx) 2 Mg/Ml Inj IV PUSH 2 mg Q2H PRN Administration Pain Rated 7-10 Naloxone HCl 0.1 mg 12/17/24 14:47 Naloxone Hcl 0.4 Mg/Ml Vial IV PUSH Q2M PRN Opiate Reversal Nicotine 1 patch 12/18/24 16:25 12/19/24 08:21 Nicotine (*Pbkc) 14 Mg Patch TRANSDERM 1 patch DAILY [facility] Administration Ondansetron HCl 4 mg 12/17/24 14:47 Ondansetron Inj 4 Mg/2 Ml Vial IV PUSH Q4H PRN Nausea And Vomiting Oxycodone/Acetaminophen 1 tab 12/17/24 08:19 12/19/24 08:20 Oxycodone/Acetaminophen (*Crx) 10-325 Mg Tablet PO 1 tab Q4H PRN Administration Pain Rated 7-10 Pantoprazole Sodium 40 mg 12/17/24 17:00 12/19/24 08:21 Pantoprazole 40 Mg Tablet PO 40 mg BID [facility] Administration Polyethylene Glycol 17 gm 12/18/24 09:00 12/19/24 08:21 Polyethylene Glycol 3350 17 Gm Powd.Pack PO 17 gm QAM [facility] Administration Potassium Chloride 40 meq 12/19/24 12:38 Potassium Chloride 20 Meq Er Tablet PO 12/19/24 12:39 ONCE ONE Senna/Docusate Sodium 2 tab 12/17/24 17:00 12/19/24 08:21 Senna/Docusate Sodium Tablet PO 2 tab BID [facility] Administration Sodium Chloride 6 ml 12/19/24 05:00 12/19/24 05:43 Sodium Chlor 3% 15 Ml Neb (Respiratory Therapy) INHALATION 12/21/24 05:01 Not Given DAILY@0500 [facility] Radiology Results: ITS Impressions Chest X-Ray 12/17/24 06:11 Impression: 6.6 cm mass versus consolidation right upper lobe medially. Chest CT recommended to further evaluate. COPD. Hip/Pelvis X-Ray 12/17/24 06:12 Impression: Acute comminuted intertrochanteric fracture of the proximal right femur, as detailed above. Chest CT 12/17/24 09:39 Impression: Right upper lobe consolidation morphologically is most compatible with pneumonia. Hyperdense material within the pneumonia raises possibility of aspiration. Questionable areas of cavitation/necrosis within the pneumonia versus changes related to underlying severe diffuse emphysema. Follow-up to radiographic resolution is advised. Mediastinal and right hilar lymphadenopathy, presumably reactive. Labs Labs: Laboratory Results - last 24 hr 12/18/24 12/19/24 17:14 05:57 WBC 7.2 RBC 3.16 L Hgb 10.1 L Hct 31.7 L MCV 100.3 H MCH 32.0 MCHC 31.9 L RDW 14.3 Plt Count 196 MPV 10.4 Immature Gran % (Auto) 0.6 H Neut % (Auto) 81.6 H Lymph % (Auto) 7.8 L Dickson % (Auto) 9.0 H Eos % (Auto) 0.6 Baso % (Auto) 0.4 Lymph # (Auto) 0.56 L Dickson # (Auto) 0.7 H Eos # (Auto) 0.0 Baso # (Auto) 0.0 Abs Immat Gran (auto) 0.04 H Absolute Neuts (auto) 5.9 Absolute Nucleated RBC 0.000 Nucleated RBC % 0.0 Sodium 141 Potassium 3.3 L Chloride 113 H Carbon Dioxide 24 Anion Gap 4 BUN 19 Creatinine 0.70 Estim Creat Clear Calc 55 Estimated GFR > 60 Glucose 86 Calcium 7.8 L Nasal MRSA (PCR) Not detected
--- NOTE | 2024-12-19 13:22 | PCNFU ---
Nutrition Follow-Up Complete: Severe protein calorie malnutrition related to chronic illness as evidenced by severe muscle wasting and fat loss Diet orders - Goal is met with regular, minced & moist L 5 diet PO intake to improve when diet is advanced - Slow progress. refusing most meals. 20% lunch Goal: Pt current nutrition is Regular diet, minced & moist L5. Nutrition recommendation: Oral nutrition supplements: Ensure Enlive BID (350 kcal, 20 g protein) and nutritional ice cream BID (270 kcal, 9 g protein) Last recorded weight is 47.6 kg. Bowel Motility: +1 BM 12/19/24 Labs Reviewed: Hgb 10.1, Hct 31.7, K+ 3.3 Meds Noted: Senna, protonix, miralax, reglan Skin: No pressure Additional Notes: Pt was downgraded to minced & moist L5 because of swallowing issues. Pt appears cachectic. 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 Refusing some meals, poor appetite. Continue orders, adding supplements Monitoring diet orders, weights, labs, intake, plan of care Follow up in 3 days
--- NOTE | 2024-12-19 14:21 | PCSTNOTE ---
Please refer to the Modified Barium Swallow Evaluation in the EMR. The above pt was seen for a modified barium swallow evaluation. Pt was alert but noted to be very [place]. Vocal quality was clear before testing; poor dentition was noted with many missing upper and lower teeth. Pt reported that he has been gagging while eating and drinking, and per the EMR, he has had a 30+ lb weight loss. He was seated for a lateral view and presented with 5 mL of thin liquid and 1/2 to 3/4 tsp of pudding. The oral stages were within functional limits. During the pharyngeal stage, reduced pharyngeal peristalsis, tongue base retraction, laryngeal elevation, and epiglottic inversion were exhibited, causing severe residual throughout the pharynx as well as laryngeal penetration; pharyngeal residual spilled into the laryngeal vestibule after the swallow. Pt lacked pharyngeal sensitivity, did not cough or clear his throat, which resulted in silent aspiration after the swallow. Cervical osteophytes were noted at C3-7 but not felt to be the cause of the dysphagia. Impressions: severe dysphagia with silent aspiration after the swallow of thin liquids and puree consistency. Recommendation: NPO; an alternative means of nutrition is recommended. ST for dysphagia therapy but it is doubtful that the pt will return to oral intake during this admission. Thank you for this referral.
[2024-12-19] MEDS: VANCOMYCIN 1,000 MG/NS 250 ML 1,000 MG/250 ML BAG 250 MG IVPB (14:44)
[2024-12-19] MEDS: POTASSIUM CHLORIDE INJ 40 MEQ in DEXTROSE 5%/LACTATED RINGERS 1,000 ML 60 MEQ IV CONT (16:50)
[2024-12-20] VITALS (12 sets, daily range): BP systolic 98–132; BP diastolic 62–82; PULSE 71–88; RESP 14–18; TEMP 36.6–36.8; O2SAT 96–100
[2024-12-20] MEDS: IPRATROPIUM 0.5 MG/ALBUTEROL SULFATE 2.5 MG AMPUL.NEB 3 ML INHALATION ×3 (01:58→13:33)
[2024-12-20] MEDS: SODIUM CHLOR 3% 15 ML NEB (RESPIRATORY THERAPY) 6 ML INHALATION (04:24)
[2024-12-20] MEDS: HYDROcodone/acetaminophen (*CRX) 5-325 MG TABLET 1 TAB PO (05:24)
[2024-12-20 05:48] LABS: Estimated CRCL calculation 63 ml/min; Estimated Glomerular Filt Rate > 60
[2024-12-20 06:52] LABS: HIV 1 2 Ag Ab 4th Gen w Rflxs NON-REACTIVE (NON-REACTIVE)
--- NOTE | 2024-12-20 08:24 | PM.IMPN ---
Progress Note: A&P Assessment and Plan (1) Closed intertrochanteric fracture of right femur: Code(s): S72.141A - Displaced intertrochanteric fracture of right femur, initial encounter for closed fracture Status: Acute Assessment and Plan: Ortho consult noted. Will start physical therapy. (2) Fall from ground level: Code(s): W18.30XA - Fall on same level, unspecified, initial encounter Status: Acute Assessment and Plan: Physical therapy and pain management (3) Lung nodule: Code(s): R91.1 - Solitary pulmonary nodule Status: Acute Assessment and Plan: Out Patient follow up and monitoring (4) Necrotizing pneumonia: Code(s): J85.0 - Gangrene and necrosis of lung Status: Acute Assessment and Plan: Continue IV antibiotics Plan Right hip fracture Patient had a fall and sustained severe right hip pain Hip pelvis x-ray showed acute comminuted intertrochanteric fracture of the proximal right femur Optimize pain management Consult orthopedic surgeon Status post Right Hip Intra-Medullary Shiv Fixation of IT Fracture 12/17 Start PT OT, cleared by orthopedic surgeon Necrotizing pneumonia Lung nodule was found on x-ray initially. Chest x-ray shows 6.6 cm mass versus consolidation right upper lobe medially. CT showed right upper lobe consolidation morphologically is most compatible with pneumonia. Hyperdense material within the pneumonia raises possibility of aspiration. Questionable areas of cavitation/necrosis within the pneumonia versus changes related to underlying severe diffuse emphysema Patient is on cefepime, start vancomycin IV Consult latex spooler for evaluation treatment Dehydration Labs reviewed, elevated BUN creatinine ratio 30/0.97 Start normal saline IV 100 mL/hour Indwelling folic catheter, urinary retention Consult urologist for evaluation treatment Complicated UTI due to indwelling catheter UA shows pyuria, urine culture grows Providencia rettger and Alcaligenes faecalis Switch from Ancef to cefepime IV Severe malnutrition Consult dietitian DVT prophylaxis per orthopedic surgeon Subjective Date/time seen: 12/20/24 08:24 Interval history: Patient was seen during the morning rounds today. No new overnight complaints. Mild shortness of breath. No chest pain. No abdominal pain, nausea, no vomiting. Review of Systems Review of Systems: ROS negative except above Exam Narrative: GENERAL: Pleasant, in no acute distress. Severe malnutrition - EYES: EOMI. Anicteric. - HENT: Moist mucous membranes. Heart hearing - LUNGS: Clear to auscultation bilaterally, no wheezing, rhonchi, or rales. - CARDIOVASCULAR: Regular rate and rhythm. No murmur. No JVD. - ABDOMEN: Soft, non-tender and non-distended. No palpable masses. - EXTREMITIES: No edema. Peripheral pulses 2+. Restricted movement of right hip because of pain - NEUROLOGIC: No focal neurological deficits. CN II-XII grossly intact. - PSYCHIATRIC: Awake, Alert and oriented x 3. Appropriate mood and affect. - SKIN: Surgical wound is dry and clean - LYMPH: No cervical lymphadenopathy. Objective Data Vital Signs Vital Signs: Vital Signs - 24 hr 12/19/24 20:00 12/19/24 20:15 12/19/24 20:23 Temperature Pulse Rate 79 80 84 Respiratory Rate 20 18 18 Blood Pressure Pulse Oximetry 99 Oxygen Delivery Room Air 12/19/24 20:31 12/20/24 01:59 12/20/24 02:13 Temperature 36.6 C Pulse Rate 79 77 82 Respiratory Rate 20 18 18 Blood Pressure 119/76 Pulse Oximetry 99 Oxygen Delivery 12/20/24 04:24 12/20/24 04:44 12/20/24 07:25 Temperature 36.6 C Pulse Rate 88 83 78 Respiratory Rate 18 18 14 Blood Pressure 132/82 Pulse Oximetry 96 Oxygen Delivery 12/20/24 07:33 Temperature Pulse Rate 76 Respiratory Rate 16 Blood Pressure Pulse Oximetry Oxygen Delivery Intake/Output Intake/Output: Intake & Output 12/17/24 12/18/24 12/19/24 12/20/24 23:59 23:59 23:59 23:59 Intake Total 1300 2820 1780 500 Output Total 899 825 0300 Balance 1100 1895 580 500 Meds/Results Medications: Active Medications Generic Name Dose Route Start Last Admin Trade Name Freq PRN Reason Stop Dose Admin Acetaminophen 500 mg 12/17/24 14:52 12/18/24 08:12 Acetaminophen 500 Mg Tablet PO 500 mg Q6H PRN Administration Pain Rated 1-3 Hydrocodone Bitart/Acetaminophen 1 tab 12/17/24 14:52 12/20/24 05:24 Hydrocodone/Acetaminophen (*Crx) 5-325 Mg Tablet PO 1 tab Q4H PRN Administration Pain Rated 4-6 Albuterol/Ipratropium 3 ml 12/18/24 20:00 12/20/24 07:25 Ipratropium 0.5 Mg/Albuterol Sulfate 2.5 Mg Ampul.Neb 3 Ml INHALATION 3 ml Q6HRT MELLISA Administration Aspirin 81 mg 12/17/24 21:00 12/19/24 21:00 Aspirin 81 Mg Enteric Tablet PO Not Given Q12HR [facility] Dextrose 12.5 gm 12/19/24 19:34 Dextrose 50% 25 Gm/50 Ml Syringe IV PUSH PRN PRN Hypoglycemia Protocol Enoxaparin Sodium 40 mg 12/20/24 09:00 Enoxaparin 40 Mg/0.4 Ml Syringe SUB-Q DAILY [facility] [place] Famotidine 20 mg 12/17/24 21:00 12/19/24 21:00 Famotidine 20 Mg Tablet PO Not Given Q12HR [facility] [place] Ferrous Sulfate 325 mg 12/18/24 12:00 12/19/24 11:34 Ferrous Sulfate [address] BY MOUTH 325 mg DAILY@1200 [facility]LL[facility] Administration Glucagon 1 mg 12/19/24 19:34 Glucagon For Inj 1 Mg Vial IM PRN PRN Hypoglycemia Protocol Glucose 15 gm 12/19/24 19:34 Glucose Oral Gel 15 Gm Of Glucse In 37.5 Gm Tube PO PRN PRN Hypoglycemia Protocol Hydromorphone HCl 1 mg 12/17/24 15:01 12/19/24 00:11 Hydromorphone Hcl Inj (*Crx) 2 Mg/Ml Vial IV PUSH 1 mg Q2H PRN Administration Breakthrough Pain Rated 7-10 or NPO Hydromorphone HCl 0.5 mg 12/17/24 15:02 Hydromorphone Hcl Inj (*Crx) 2 Mg/Ml Vial IV PUSH Q2H PRN Breakthrough Pain Rated 4-6 or NPO Hydroxyzine Pamoate 50 mg 12/17/24 14:47 Hydroxyzine Pamoate 25 Mg Capsule PO Q4H PRN Itching Cefepime HCl 2 gm in 50 mls @ 100 mls/hr 12/18/24 11:00 12/19/24 21:30 Maxipime 2 Gm/Ns 50 Ml IVPB 12/24/24 21:29 Infused Q12HR MELLISA Infusion Vancomycin HCl 1,000 mg in 250 mls @ 250 mls/hr 12/19/24 15:00 12/19/24 14:44 Vancomycin 1,000 Mg/Ns 250 Ml IVPB 250 mls/hr Q24H [facility] Administration Potassium Chloride 40 meq/ 1,020 mls @ 60 mls/hr 12/19/24 13:00 12/19/24 16:50 Dextrose/Lactated Ringer's IV CONT 60 mls/hr .Q17H [facility] Administration Dextrose 1,000 mls @ 100 mls/hr 12/19/24 19:34 Dextrose 5% 1,000 Ml IVPB PRN PRN Hypoglycemia Protocol Magnesium Hydroxide 30 ml 12/17/24 14:52 Magnesium Hydroxide Susp 30 Ml Udc PO BID PRN Constipation Metoclopramide HCl 10 mg 12/17/24 08:20 Metoclopramide Hcl Inj 10 Mg/2 Ml Vial IV PUSH Q6H PRN Nausea And Vomiting Midodrine 5 mg 12/18/24 09:00 12/19/24 19:31 Midodrine Hcl 2.5 Mg Tablet PO Not Given TID [facility] Midodrine 10 mg 12/18/24 09:00 12/19/24 19:30 Midodrine Hcl 10 Mg Tablet PO Not Given TID [facility] [place] Morphine Sulfate 2 mg 12/17/24 06:29 12/17/24 08:59 Morphine Sulfate (*Crx) 2 Mg/Ml Inj IV PUSH 2 mg Q2H PRN Administration Pain Rated 7-10 Naloxone HCl 0.1 mg 12/17/24 14:47 Naloxone Hcl 0.4 Mg/Ml Vial IV PUSH Q2M PRN Opiate Reversal Nicotine 1 patch 12/18/24 16:25 12/19/24 08:21 Nicotine (*Pbkc) 14 Mg Patch TRANSDERM 1 patch DAILY [facility] Administration Ondansetron HCl 4 mg 12/17/24 14:47 Ondansetron Inj 4 Mg/2 Ml Vial IV PUSH Q4H PRN Nausea And Vomiting Oxycodone/Acetaminophen 1 tab 12/17/24 08:19 12/19/24 08:20 Oxycodone/Acetaminophen (*Crx) 10-325 Mg Tablet PO 1 tab Q4H PRN Administration Pain Rated 7-10 Pantoprazole Sodium 40 mg 12/17/24 17:00 12/19/24 19:31 Pantoprazole 40 Mg Tablet PO Not Given BID [facility] Polyethylene Glycol 17 gm 12/18/24 09:00 12/19/24 08:21 Polyethylene Glycol 3350 17 Gm Powd.Pack PO 17 gm QAM [facility]LL[facility] Administration Senna/Docusate Sodium 2 tab 12/17/24 17:00 12/19/24 19:30 Senna/Docusate Sodium Tablet PO Not Given BID [facility] [place] Sodium Chloride 6 ml 12/19/24 05:00 12/20/24 04:24 Sodium Chlor 3% 15 Ml Neb (Respiratory Therapy) INHALATION 12/21/24 05:01 6 ml DAILY@0500 [facility] Administration Radiology Results: ITS Impressions Chest X-Ray 12/17/24 06:11 Impression: 6.6 cm mass versus consolidation right upper lobe medially. Chest CT recommended to further evaluate. COPD. Hip/Pelvis X-Ray 12/17/24 06:12 Impression: Acute comminuted intertrochanteric fracture of the proximal right femur, as detailed above. Chest CT 12/17/24 09:39 Impression: Right upper lobe consolidation morphologically is most compatible with pneumonia. Hyperdense material within the pneumonia raises possibility of aspiration. Questionable areas of cavitation/necrosis within the pneumonia versus changes related to underlying severe diffuse emphysema. Follow-up to radiographic resolution is advised. Mediastinal and right hilar lymphadenopathy, presumably reactive. Modified Barium Swallow 12/19/24 15:07 IMPRESSION: Pharyngeal dysphagia with laryngeal penetration and aspiration after the swallow. Please correlate with speech pathologist findings and specific feeding recommendations. Labs Labs: Laboratory Results - last 24 hr 12/18/24 12/20/24 05:39 05:29 Creatinine 0.60 L Estim Creat Clear Calc 63 Estimated GFR > 60 HIV 1&2 Ag/Ab, 4th Gen Non-reactive
[2024-12-20] MEDS: oxyCODONE/ACETAMINOPHEN (*CRX) 10-325 MG TABLET 1 TAB PO (09:24)
[2024-12-20] MEDS: CEFEPIME 2 GM/NS 50 ML 2 GM/50 ML BAG IVPB ×2 (09:24→22:18)
[2024-12-20] MEDS: MIDODRINE HCL 2.5 MG TABLET 5 MG PO (09:25)
[2024-12-20] MEDS: FAMOTIDINE 20 MG TABLET PO (09:25)
[2024-12-20] MEDS: MIDODRINE HCL 10 MG TABLET PO (09:26)
[2024-12-20] MEDS: NICOTINE (*PBKC) 14 MG PATCH 1 PATCH TRANSDERM (09:26)
[2024-12-20] MEDS: PANTOPRAZOLE 40 MG TABLET PO (09:26)
[2024-12-20] MEDS: SENNA/DOCUSATE SODIUM TABLET 2 TAB PO (09:26)
[2024-12-20] MEDS: ASPIRIN 81 MG ENTERIC TABLET PO (09:27)
[2024-12-20] MEDS: ENOXAPARIN 40 MG/0.4 ML SYRINGE SUB-Q (09:30)
[2024-12-20 12:41] LABS: Glucose Point of Care 151 mg/dl (65-105)
--- NOTE | 2024-12-20 12:46 | PCSTNOTE ---
Attempted speech therapy this afternoon. Pt. sleeping upon entry and would briefly arouse to his name paired with gentle touch but not sustain alertness to complete therapy tasks on this date.
--- NOTE | 2024-12-20 13:40 | P.CONGI_ITS ---
Assessment and Plan Assessment and plan (1) Suspected pulmonary aspiration of food: Code(s): R09.89 - Other specified symptoms and signs involving the circulatory and respiratory systems Status: Acute Assessment and Plan: The patient's high risk for chronic aspiration makes him a good candidate for PEG tube placement, which is planned for this coming Sunday. As he is currently on antibiotics, additional prophylactic antibiotics for the PEG procedure are not required. Please hold Lovenox on the day before the planned procedure. Until the PEG tube is placed, please continue administering basic nutrition and all necessary medications via his nasogastric tube throughout this weekend. GI Consult Note Consult date/time: 12/20/24 13:40 HPI: Mr. Gera Dennis is a 74-year-old male admitted on December 17, 2024, for management of a surgically repaired right hip fracture. His significant comorbidities include COPD and a right upper lobe pulmonary mass, the etiology of which is currently unclear (cavitated pneumonia versus neoplasm). Due to his significant frailty and impaired oral intake, a consultation has been requested for the placement of a PEG tube to ensure adequate nutritional support. Review of Systems 2 Review of Systems: All systems reviewed & are unremarkable except as noted in HPI and below PMFSH Past Medical History Medical History Lung nodule Cachexia Social History Social History Smoking status: Light tobacco smoker Tobacco type: cigarettes Alcohol intake: never Substance use: current Substance use type: marijuana Do You Feel Safe in your Home?: Yes Lack of Transportation: No Lack of Food: Never True Current Housing: I Have Housing Concerned About Future Housing: No Difficulty Paying Gas/Electric Bills: No Difficulty Paying for Meds: No Currently Unemployed: No Education: Associate Degree Difficulty w/ Childcare or Family Care: No Spiritual care concerns: No Meds Home Medications and Allergies Home Medications ?Medication ?Instructions ?Recorded ?Confirmed ?Type ferrous sulfate 325 mg (65 mg 325 mg PO .daily @1200 12/17/24 12/17/24 History iron) tablet pantoprazole 40 mg tablet,delayed 40 mg PO BID 12/17/24 12/17/24 History release umeclidinium 62.5 mcg/actuation 1 inh inhalation Q24H 12/17/24 12/17/24 History blister powder for inhalation (Incruse Ellipta) Allergies Allergy/AdvReac Type Severity Reaction Status Date / Time No Known Allergies Allergy Verified 12/17/24 12:31 Vital Signs Vital Signs - 24 hr 12/19/24 20:00 12/19/24 20:15 12/19/24 20:23 Temperature Pulse Rate 79 80 84 Respiratory Rate 20 18 18 Blood Pressure Pulse Oximetry 99 Oxygen Delivery Room Air 12/19/24 20:31 12/20/24 01:59 12/20/24 02:13 Temperature 97.8 F Pulse Rate 79 77 82 Respiratory Rate 20 18 18 Blood Pressure 119/76 Pulse Oximetry 99 Oxygen Delivery 12/20/24 04:24 12/20/24 04:44 12/20/24 07:25 Temperature 97.8 F Pulse Rate 88 83 78 Respiratory Rate 18 18 14 Blood Pressure 132/82 Pulse Oximetry 96 Oxygen Delivery 12/20/24 07:33 12/20/24 09:08 12/20/24 13:34 Temperature Pulse Rate 76 80 Respiratory Rate 16 18 Blood Pressure Pulse Oximetry 96 Oxygen Delivery Room Air Exam 2 Narrative: GENERAL: Pleasant, in no acute distress. Severe malnutrition - EYES: EOMI. Anicteric. - HENT: Moist mucous membranes. Heart h earing - LUNGS: Clear to auscultation bilateral ly, no wheezing, rhonchi, or rales. - CARDIOVASCULAR: Regular rate and rhyth m. No murmur. No JVD. - ABDOMEN: Soft, non-tender and non-dist ended. No palpable masses. - EXTREMITIES: No edema. Peripheral puls es 2+. Restricted movement of right hip because of pain - NEUROLOGIC: No focal neurological defi cits. CN II-XII grossly intact. - PSYCHIATRIC: Awake, Alert and oriented x 3. Appropriate mood and affect. - SKIN: Surgical wound is dry and clean - LYMPH: No cervical lymphadenopathy. Results Labs 12/19/24 05:57 12/20/24 05:29 Labs: BMP 12/20/24 05:29 Creatinine 0.60 L
[2024-12-20 14:41] LABS: Vancomycin Trough < 5.0 ug/mL (10.0-20.0)
[2024-12-20] MEDS: POTASSIUM CHLORIDE INJ 40 MEQ in DEXTROSE 5%/LACTATED RINGERS 1,000 ML 60 MEQ IV CONT (16:14)
[2024-12-20] MEDS: VANCOMYCIN 1,000 MG/NS 250 ML 1,000 MG/250 ML BAG 250 MG IVPB (16:15)
[2024-12-20 17:56] LABS: Basophils Percent Auto 0.8 % (0.2-1.2); Eosinophils Absolute Auto 0.1 K/mm3 (0-0.3); Eosinophils Percent Auto 1.7 % (0-4.4); Hematocrit 29.6 % (42.0-52.0); Hemoglobin 9.3 g/dL (14.0-18.0); Immature Granulocyte Absolute 0.02 K/mm3 (0.00-0.031); Immature Granulocyte Percent A 0.4 % (0-0.5); Lymphocytes Absolute Auto 0.61 K/mm3 (0.9-3.2); Lymphocytes Percent Auto 11.7 % (18.3-44.2); Mean Corpuscular HGB Conc 31.4 g/dl (32-36); Mean Corpuscular Hemoglobin 32.1 pg (26-34); Mean Corpuscular Volume 102.1 fl (80-100); Mean Platelet Volume 9.9 fl (7.4-10.4); Monocytes Absolute Auto 0.6 K/mm3 (0.1-0.6); Monocytes Percent Auto 11.5 % (2.6-8.5); Neutrophils Absolute Auto 3.9 K/mm3 (1.3-6.7); Neutrophils Percent Auto 73.9 % (45.5-73.1); Platelet Count Result 168 k/mm3 (150-375); Red Cell Distribution Width 14.6 % (11.5-14.5); White Blood Count 5.2 K/mm3 (4.5-10.0)
[2024-12-20 18:07] LABS: Alanine Aminotransferase 11 U/L (6-50); Albumin Level 2.7 g/dL (3.5-5.1); Alkaline Phosphatase 95 U/L (38-126); Anion Gap 3 mmol/L (4-12); Aspartate Amino Transferase 18 U/L (17-59); Bilirubin,Total 0.4 mg/dL (0.2-1.3); Blood Urea Nitrogen 15 mg/dL (9-20); Calcium 7.7 mg/dL (8.4-10.2); Carbon Dioxide 29 mmol/L (22-30); Chloride 109 mmol/L (98-107); Estimated CRCL calculation 70 ml/min; Estimated Glomerular Filt Rate > 60; Glucose 90 mg/dL (65-110); Potassium 3.3 mmol/L (3.4-5.0); Sodium 141 mmol/L (137-145)
[2024-12-20] MEDS: ONDANSETRON INJ 4 MG/2 ML VIAL IV PUSH (22:21)
[2024-12-21] VITALS (12 sets, daily range): BP systolic 104–119; BP diastolic 70–77; PULSE 72–82; RESP 16–20; TEMP 36.3–36.6; O2SAT 96–99
[2024-12-21 00:23] LABS: Glucose Point of Care 109 mg/dl (65-105)
[2024-12-21] MEDS: IPRATROPIUM 0.5 MG/ALBUTEROL SULFATE 2.5 MG AMPUL.NEB 3 ML INHALATION ×4 (02:15→19:45)
[2024-12-21] MEDS: VANCOMYCIN 1,000 MG/NS 250 ML 1,000 MG/250 ML BAG 250 MG IVPB ×2 (04:16→15:06)
[2024-12-21] MEDS: ONDANSETRON INJ 4 MG/2 ML VIAL IV PUSH ×2 (05:28→08:59)
[2024-12-21] MEDS: MORPHINE SULFATE (*CRX) 2 MG/ML INJ IV PUSH (05:28)
--- NOTE | 2024-12-21 06:31 | PCRCNOTE ---
Patient was agitated that he was awakened and refused to do the sputum induction. Therefore, no sputum was obtained.
[2024-12-21 06:36] LABS: Alanine Aminotransferase 11 U/L (6-50); Alkaline Phosphatase 108 U/L (38-126); Anion Gap 4 mmol/L (4-12); Aspartate Amino Transferase 23 U/L (17-59); Bilirubin,Total 0.7 mg/dL (0.2-1.3); Blood Urea Nitrogen 8 mg/dL (9-20); Carbon Dioxide 32 mmol/L (22-30); Chloride 102 mmol/L (98-107); Estimated CRCL calculation 70 ml/min; Estimated Glomerular Filt Rate > 60; Glucose 97 mg/dL (65-110); Potassium 3.2 mmol/L (3.4-5.0); Sodium 138 mmol/L (137-145)
[2024-12-21 07:59] LABS: Glucose Point of Care 113 mg/dl (65-105)
[2024-12-21] MEDS: NICOTINE (*PBKC) 14 MG PATCH 1 PATCH TRANSDERM (08:55)
[2024-12-21] MEDS: CEFEPIME 2 GM/NS 50 ML 2 GM/50 ML BAG IVPB ×2 (09:04→20:38)
[2024-12-21] MEDS: ENOXAPARIN 40 MG/0.4 ML SYRINGE SUB-Q (09:07)
[2024-12-21] MEDS: FAMOTIDINE 20 MG TABLET PO (09:12)
[2024-12-21] MEDS: SENNA/DOCUSATE SODIUM TABLET 2 TAB PO (09:12)
[2024-12-21] MEDS: MIDODRINE HCL 10 MG TABLET PO (09:12)
[2024-12-21] MEDS: ASPIRIN 81 MG ENTERIC TABLET PO (09:13)
[2024-12-21] MEDS: MIDODRINE HCL 2.5 MG TABLET 5 MG PO (09:13)
--- NOTE | 2024-12-21 09:14 | P.PNIM_ITS ---
Progress Note: A&P Assessment and Plan (1) Closed intertrochanteric fracture of right femur: Code(s): S72.141A - Displaced intertrochanteric fracture of right femur, initial encounter for closed fracture Status: Acute Assessment and Plan: Ortho consult noted. Will start physical therapy. (2) Fall from ground level: Code(s): W18.30XA - Fall on same level, unspecified, initial encounter Status: Acute Assessment and Plan: Physical therapy and pain management (3) Lung nodule: Code(s): R91.1 - Solitary pulmonary nodule Status: Acute Assessment and Plan: Out Patient follow up and monitoring (4) Necrotizing pneumonia: Code(s): J85.0 - Gangrene and necrosis of lung Status: Acute Assessment and Plan: Continue IV antibiotics (5) Severe malnutrition: Code(s): E43 - Unspecified severe protein-calorie malnutrition Status: Acute Assessment and Plan: GI evaluation and possible PEG placement Plan Right hip fracture Patient had a fall and sustained severe right hip pain Hip pelvis x-ray showed acute comminuted intertrochanteric fracture of the proximal right femur Optimize pain management Consult orthopedic surgeon Status post Right Hip Intra-Medullary Shiv Fixation of IT Fracture 12/17 Start PT OT, cleared by orthopedic surgeon Necrotizing pneumonia Lung nodule was found on x-ray initially. Chest x-ray shows 6.6 cm mass versus consolidation right upper lobe medially. CT showed right upper lobe consolidation morphologically is most compatible with pneumonia. Hyperdense material within the pneumonia raises possibility of aspiration. Questionable areas of cavitation/necrosis within the pneumonia versus changes related to underlying severe diffuse emphysema Patient is on cefepime, start vancomycin IV Consult nurse head for evaluation treatment Dehydration Labs reviewed, elevated BUN creatinine ratio 30/0.97 Start normal saline IV 100 mL/hour Indwelling folic catheter, urinary retention Consult urologist for evaluation treatment Complicated UTI due to indwelling catheter UA shows pyuria, urine culture grows Providencia rettger and Alcaligenes faecalis Switch from Ancef to cefepime IV Severe malnutrition Consult dietitian DVT prophylaxis per orthopedic surgeon Subjective Date/time seen: 12/21/24 09:14 Interval history: Patient was seen during the morning rounds today. Feeling ok No shortness of breath. No chest pain. No abdominal pain, nausea, no vomiting. Review of Systems Review of Systems: ROS negative except above Exam Narrative: GENERAL: Pleasant, in no acute distress. Severe malnutrition - EYES: EOMI. Anicteric. - HENT: Moist mucous membranes. Heart h earing - LUNGS: Clear to auscultation bilateral ly, no wheezing, rhonchi, or rales. - CARDIOVASCULAR: Regular rate and rhyth m. No murmur. No JVD. - ABDOMEN: Soft, non-tender and non-dist ended. No palpable masses. - EXTREMITIES: No edema. Peripheral puls es 2+. Restricted movement of right hip because of pain - NEUROLOGIC: No focal neurological defi cits. CN II-XII grossly intact. - PSYCHIATRIC: Awake, Alert and oriented x 3. Appropriate mood and affect. - SKIN: Surgical wound is dry and clean - LYMPH: No cervical lymphadenopathy. Objective Data Vital Signs Vital Signs: Vital Signs - 24 hr 12/20/24 13:34 12/20/24 13:49 12/20/24 14:00 Temperature 36.7 C Pulse Rate 80 80 76 Respiratory Rate 18 18 16 Blood Pressure 98/64 L Pulse Oximetry 99 Oxygen Delivery Fraction of Inspired Oxygen 12/20/24 20:00 12/20/24 21:16 12/21/24 02:15 Temperature 36.8 C Pulse Rate 71 71 74 Respiratory Rate 17 17 16 Blood Pressure 101/62 Pulse Oximetry 100 100 Oxygen Delivery Room Air Fraction of Inspired Oxygen 12/21/24 02:24 12/21/24 06:00 12/21/24 07:59 Temperature 36.6 C Pulse Rate 72 73 Respiratory Rate 16 18 Blood Pressure 119/74 Pulse Oximetry 99 96 Oxygen Delivery Room Air Fraction of Inspired Oxygen 21 12/21/24 07:59 12/21/24 08:07 Temperature Pulse Rate 76 74 Respiratory Rate 16 16 Blood Pressure Pulse Oximetry Oxygen Delivery Fraction of Inspired Oxygen Intake/Output Intake/Output: Intake & Output 12/18/24 12/19/24 12/20/24 12/21/24 23:59 23:59 23:59 23:59 Intake Total 2820 1780 2110 450 Output Total 925 9338 259 4267 Balance 2989 220 7053 -1350 Meds/Results Medications: Active Medications Generic Name Dose Route Start Last Admin Trade Name Freq PRN Reason Stop Dose Admin Acetaminophen 500 mg 12/17/24 14:52 12/18/24 08:12 Acetaminophen 500 Mg Tablet PO 500 mg Q6H PRN Administration Pain Rated 1-3 Hydrocodone Bitart/Acetaminophen 1 tab 12/17/24 14:52 12/20/24 05:24 Hydrocodone/Acetaminophen (*Crx) 5-325 Mg Tablet PO 1 tab Q4H PRN Administration Pain Rated 4-6 Albuterol/Ipratropium 3 ml 12/18/24 20:00 12/21/24 07:59 Ipratropium 0.5 Mg/Albuterol Sulfate 2.5 Mg Ampul.Neb 3 Ml INHALATION 3 ml Q6HRT MELLISA Administration Aspirin 81 mg 12/17/24 21:00 12/21/24 09:13 Aspirin 81 Mg Enteric Tablet PO 81 mg Q12HR MELLISA Administration Dextrose 12.5 gm 12/19/24 19:34 Dextrose 50% 25 Gm/50 Ml Syringe IV PUSH PRN PRN Hypoglycemia Protocol Enoxaparin Sodium 40 mg 12/20/24 09:00 12/21/24 09:07 Enoxaparin 40 Mg/0.4 Ml Syringe SUB-Q 40 mg DAILY MELLISA Administration Famotidine 20 mg 12/17/24 21:00 12/21/24 09:12 Famotidine 20 Mg Tablet PO 20 mg Q12HR MELLISA Administration Ferrous Sulfate 325 mg 12/18/24 12:00 12/20/24 12:22 Ferrous Sulfate [address] BY MOUTH Not Given DAILY@1200 [facility] Glucagon 1 mg 12/19/24 19:34 Glucagon For Inj 1 Mg Vial IM PRN PRN Hypoglycemia Protocol Glucose 15 gm 12/19/24 19:34 Glucose Oral Gel 15 Gm Of Glucse In 37.5 Gm Tube PO PRN PRN Hypoglycemia Protocol Hydromorphone HCl 1 mg 12/17/24 15:01 12/19/24 00:11 Hydromorphone Hcl Inj (*Crx) 2 Mg/Ml Vial IV PUSH 1 mg Q2H PRN Administration Breakthrough Pain Rated 7-10 or NPO Hydromorphone HCl 0.5 mg 12/17/24 15:02 Hydromorphone Hcl Inj (*Crx) 2 Mg/Ml Vial IV PUSH Q2H PRN Breakthrough Pain Rated 4-6 or NPO Hydroxyzine Pamoate 50 mg 12/17/24 14:47 Hydroxyzine Pamoate 25 Mg Capsule PO Q4H PRN Itching Cefepime HCl 2 gm in 50 mls @ 100 mls/hr 12/18/24 11:00 12/21/24 09:04 Maxipime 2 Gm/Ns 50 Ml IVPB 12/24/24 21:29 100 mls/hr Q12HR MELLISA Administration Potassium Chloride 40 meq/ 1,020 mls @ 60 mls/hr 12/19/24 13:00 12/20/24 16:14 Dextrose/Lactated Ringer's IV CONT 60 mls/hr .Q17H MELLISA Administration Dextrose 1,000 mls @ 100 mls/hr 12/19/24 19:34 Dextrose 5% 1,000 Ml IVPB PRN PRN Hypoglycemia Protocol Vancomycin HCl 1,000 mg in 250 mls @ 250 mls/hr 12/20/24 16:00 12/21/24 05:16 Vancomycin 1,000 Mg/Ns 250 Ml IVPB Infused Q12H MELLISA Infusion Magnesium Hydroxide 30 ml 12/17/24 14:52 Magnesium Hydroxide Susp 30 Ml Udc PO BID PRN Constipation Metoclopramide HCl 10 mg 12/17/24 08:20 Metoclopramide Hcl Inj 10 Mg/2 Ml Vial IV PUSH Q6H PRN Nausea And Vomiting Midodrine 5 mg 12/18/24 09:00 12/21/24 09:13 Midodrine Hcl 2.5 Mg Tablet PO 5 mg TID MELLISA Administration Midodrine 10 mg 12/18/24 09:00 12/21/24 09:12 Midodrine Hcl 10 Mg Tablet PO 10 mg TID MELLISA Administration Morphine Sulfate 2 mg 12/17/24 06:29 12/21/24 05:28 Morphine Sulfate (*Crx) 2 Mg/Ml Inj IV PUSH 2 mg Q2H PRN Administration Pain Rated 7-10 Naloxone HCl 0.1 mg 12/17/24 14:47 Naloxone Hcl 0.4 Mg/Ml Vial IV PUSH Q2M PRN Opiate Reversal Nicotine 1 patch 12/18/24 16:25 12/21/24 08:55 Nicotine (*Pbkc) 14 Mg Patch TRANSDERM 1 patch DAILY MELLISA Administration Ondansetron HCl 4 mg 12/17/24 14:47 12/21/24 08:59 Ondansetron Inj 4 Mg/2 Ml Vial IV PUSH 4 mg Q4H PRN Administration Nausea And Vomiting Oxycodone/Acetaminophen 1 tab 12/17/24 08:19 12/20/24 09:24 Oxycodone/Acetaminophen (*Crx) 10-325 Mg Tablet PO 1 tab Q4H PRN Administration Pain Rated 7-10 Pantoprazole Sodium 40 mg 12/17/24 17:00 12/21/24 09:13 Pantoprazole 40 Mg Tablet PO Not Given BID MELLISA Polyethylene Glycol 17 gm 12/18/24 09:00 12/21/24 09:11 Polyethylene Glycol 3350 17 Gm Powd.Pack PO Not Given QAM MELLISA Senna/Docusate Sodium 2 tab 12/17/24 17:00 12/21/24 09:12 Senna/Docusate Sodium Tablet PO 2 tab BID MELLISA Administration Radiology Results: ITS Impressions Chest X-Ray 12/17/24 06:11 Impression: 6.6 cm mass versus consolidation right upper lobe medially. Chest CT recommended to further evaluate. COPD. Hip/Pelvis X-Ray 12/17/24 06:12 Impression: Acute comminuted intertrochanteric fracture of the proximal right femur, as detailed above. Chest CT 12/17/24 09:39 Impression: Right upper lobe consolidation morphologically is most compatible with pneumonia. Hyperdense material within the pneumonia raises possibility of aspiration. Questionable areas of cavitation/necrosis within the pneumonia versus changes related to underlying severe diffuse emphysema. Follow-up to radiographic resolution is advised. Mediastinal and right hilar lymphadenopathy, presumably reactive. Modified Barium Swallow 12/19/24 15:07 IMPRESSION: Pharyngeal dysphagia with laryngeal penetration and aspiration after the swallow. Please correlate with speech pathologist findings and specific feeding recommendations. Labs Labs: Laboratory Results - last 24 hr 12/20/24 12/20/24 12/20/24 12:36 13:56 17:44 WBC 5.2 RBC 2.90 L Hgb 9.3 L Hct 29.6 L MCV 102.1 H MCH 32.1 MCHC 31.4 L RDW 14.6 H Plt Count 168 MPV 9.9 Immature Gran % (Auto) 0.4 Neut % (Auto) 73.9 H Lymph % (Auto) 11.7 L Frontier % (Auto) 11.5 H Eos % (Auto) 1.7 Baso % (Auto) 0.8 Lymph # (Auto) 0.61 L Frontier # (Auto) 0.6 Eos # (Auto) 0.1 Baso # (Auto) 0.0 Abs Immat Gran (auto) 0.02 Absolute Neuts (auto) 3.9 Absolute Nucleated RBC 0.000 Nucleated RBC % 0.0 Sodium 141 Potassium 3.3 L Chloride 109 H Carbon Dioxide 29 Anion Gap 3 L BUN 15 Creatinine 0.53 L Estim Creat Clear Calc 70 Estimated GFR > 60 Glucose 90 POC Capillary Glucose 151 H Calcium 7.7 L Total Bilirubin 0.4 AST 18 ALT 11 Alkaline Phosphatase 95 Total Protein 5.0 L Albumin 2.7 L Vancomycin Trough < 5.0 L 12/21/24 12/21/24 12/21/24 00:19 05:48 07:56 WBC RBC Hgb Hct MCV MCH MCHC RDW Plt Count MPV Immature Gran % (Auto) Neut % (Auto) Lymph % (Auto) Frontier % (Auto) Eos % (Auto) Baso % (Auto) Lymph # (Auto) Frontier # (Auto) Eos # (Auto) Baso # (Auto) Abs Immat Gran (auto) Absolute Neuts (auto) Absolute Nucleated RBC Nucleated RBC % Sodium 138 Potassium 3.2 L Chloride 102 Carbon Dioxide 32 H Anion Gap 4 BUN 8 L D Creatinine 0.53 L Estim Creat Clear Calc 70 Estimated GFR > 60 Glucose 97 POC Capillary Glucose 109 H 113 H Calcium 8.0 L Total Bilirubin 0.7 AST 23 ALT 11 Alkaline Phosphatase 108 Total Protein 6.0 L Albumin 3.0 L Vancomycin Trough
[2024-12-21] MEDS: POTASSIUM CHLORIDE INJ 40 MEQ in SODIUM CHLORIDE 0.9% IV 500 ML 130 MEQ IVPB (09:50)
--- NOTE | 2024-12-21 11:41 | P.PNGI_ITS ---
Progress Note: A&P Assessment and Plan (1) Severe malnutrition: Code(s): E43 - Unspecified severe protein-calorie malnutrition Status: Acute Assessment and Plan: The patient is cachectic, and has objective evidence of aspiration according to modified barium swallow. Therefore he is a good candidate for PEG placement. Will plan for tomorrow. Nighttime dose of Lovenox should be held tonight. Subjective Date/time seen: 12/21/24 11:41 Interval history: No changes in patient's status. Objective Data Vital Signs Vital Signs: Vital Signs - 24 hr 12/20/24 13:34 12/20/24 13:49 12/20/24 14:00 Temperature 98.0 F Pulse Rate 80 80 76 Respiratory Rate 18 18 16 Blood Pressure 98/64 L Pulse Oximetry 99 Oxygen Delivery Fraction of Inspired Oxygen 12/20/24 20:00 12/20/24 21:16 12/21/24 02:15 Temperature 98.2 F Pulse Rate 71 71 74 Respiratory Rate 17 17 16 Blood Pressure 101/62 Pulse Oximetry 100 100 Oxygen Delivery Room Air Fraction of Inspired Oxygen 12/21/24 02:24 12/21/24 06:00 12/21/24 07:59 Temperature 98 F Pulse Rate 72 73 Respiratory Rate 16 18 Blood Pressure 119/74 Pulse Oximetry 99 96 Oxygen Delivery Room Air Fraction of Inspired Oxygen 12/21/24 07:59 12/21/24 08:07 Temperature Pulse Rate 76 74 Respiratory Rate 16 16 Blood Pressure Pulse Oximetry Oxygen Delivery Fraction of Inspired Oxygen Intake/Output Intake/Output: Intake & Output 12/18/24 12/19/24 12/20/24 12/21/24 23:59 23:59 23:59 23:59 Intake Total 2820 1780 2110 500 Output Total 925 1088 944 2539 Balance 5016 176 1923 -1300 Meds/Results Medications: Active Medications Generic Name Dose Route Start Last Admin Trade Name Freq PRN Reason Stop Dose Admin Acetaminophen 500 mg 12/17/24 14:52 12/18/24 08:12 Acetaminophen 500 Mg Tablet PO 500 mg Q6H PRN Administration Pain Rated 1-3 Hydrocodone Bitart/Acetaminophen 1 tab 12/17/24 14:52 12/20/24 05:24 Hydrocodone/Acetaminophen (*Crx) 5-325 Mg Tablet PO 1 tab Q4H PRN Administration Pain Rated 4-6 Albuterol/Ipratropium 3 ml 12/18/24 20:00 12/21/24 07:59 Ipratropium 0.5 Mg/Albuterol Sulfate 2.5 Mg Ampul.Neb 3 Ml INHALATION 3 ml Q6HRT MELLISA Administration Aspirin 81 mg 12/17/24 21:00 12/21/24 09:13 Aspirin 81 Mg Enteric Tablet PO 81 mg Q12HR MELLISA Administration Dextrose 12.5 gm 12/19/24 19:34 Dextrose 50% 25 Gm/50 Ml Syringe IV PUSH PRN PRN Hypoglycemia Protocol Enoxaparin Sodium 40 mg 12/20/24 09:00 12/21/24 09:07 Enoxaparin 40 Mg/0.4 Ml Syringe SUB-Q 40 mg DAILY MELLISA Administration Famotidine 20 mg 12/17/24 21:00 12/21/24 09:12 Famotidine 20 Mg Tablet PO 20 mg Q12HR MELLISA Administration Ferrous Sulfate 325 mg 12/18/24 12:00 12/21/24 11:24 Ferrous Sulfate [address] BY MOUTH Not Given DAILY@1200 [facility] Glucagon 1 mg 12/19/24 19:34 Glucagon For Inj 1 Mg Vial IM PRN PRN Hypoglycemia Protocol Glucose 15 gm 12/19/24 19:34 Glucose Oral Gel 15 Gm Of Glucse In 37.5 Gm Tube PO PRN PRN Hypoglycemia Protocol Hydromorphone HCl 1 mg 12/17/24 15:01 12/19/24 00:11 Hydromorphone Hcl Inj (*Crx) 2 Mg/Ml Vial IV PUSH 1 mg Q2H PRN Administration Breakthrough Pain Rated 7-10 or NPO Hydromorphone HCl 0.5 mg 12/17/24 15:02 Hydromorphone Hcl Inj (*Crx) 2 Mg/Ml Vial IV PUSH Q2H PRN Breakthrough Pain Rated 4-6 or NPO Hydroxyzine Pamoate 50 mg 12/17/24 14:47 Hydroxyzine Pamoate 25 Mg Capsule PO Q4H PRN Itching Cefepime HCl 2 gm in 50 mls @ 100 mls/hr 12/18/24 11:00 12/21/24 09:34 Maxipime 2 Gm/Ns 50 Ml IVPB 12/24/24 21:29 Infused Q12HR MELLISA Infusion Potassium Chloride 40 meq/ 1,020 mls @ 60 mls/hr 12/19/24 13:00 12/20/24 16:14 Dextrose/Lactated Ringer's IV CONT 60 mls/hr .Q17H MELLISA Administration Dextrose 1,000 mls @ 100 mls/hr 12/19/24 19:34 Dextrose 5% 1,000 Ml IVPB PRN PRN Hypoglycemia Protocol Vancomycin HCl 1,000 mg in 250 mls @ 250 mls/hr 12/20/24 16:00 12/21/24 05:16 Vancomycin 1,000 Mg/Ns 250 Ml IVPB Infused Q12H MELLISA Infusion Potassium Chloride 40 meq/ 520 mls @ 130 mls/hr 12/21/24 09:13 12/21/24 09:50 Sodium Chloride IVPB 12/21/24 13:12 130 mls/hr ONCE ONE Administration Magnesium Hydroxide 30 ml 12/17/24 14:52 Magnesium Hydroxide Susp 30 Ml Udc PO BID PRN Constipation Metoclopramide HCl 10 mg 12/17/24 08:20 Metoclopramide Hcl Inj 10 Mg/2 Ml Vial IV PUSH Q6H PRN Nausea And Vomiting Midodrine 5 mg 12/18/24 09:00 12/21/24 11:24 Midodrine Hcl 2.5 Mg Tablet PO Not Given TID [facility] Midodrine 10 mg 12/18/24 09:00 12/21/24 11:24 Midodrine Hcl 10 Mg Tablet PO Not Given TID [facility] Morphine Sulfate 2 mg 12/17/24 06:29 12/21/24 05:28 Morphine Sulfate (*Crx) 2 Mg/Ml Inj IV PUSH 2 mg Q2H PRN Administration Pain Rated 7-10 Naloxone HCl 0.1 mg 12/17/24 14:47 Naloxone Hcl 0.4 Mg/Ml Vial IV PUSH Q2M PRN Opiate Reversal Nicotine 1 patch 12/18/24 16:25 12/21/24 08:55 Nicotine (*Pbkc) 14 Mg Patch TRANSDERM 1 patch DAILY [facility] Administration Ondansetron HCl 4 mg 12/17/24 14:47 12/21/24 08:59 Ondansetron Inj 4 Mg/2 Ml Vial IV PUSH 4 mg Q4H PRN Administration Nausea And Vomiting Oxycodone/Acetaminophen 1 tab 12/17/24 08:19 12/20/24 09:24 Oxycodone/Acetaminophen (*Crx) 10-325 Mg Tablet PO 1 tab Q4H PRN Administration Pain Rated 7-10 Pantoprazole Sodium 40 mg 12/17/24 17:00 12/21/24 09:13 Pantoprazole 40 Mg Tablet PO Not Given BID MELLISA Polyethylene Glycol 17 gm 12/18/24 09:00 12/21/24 09:11 Polyethylene Glycol 3350 17 Gm Powd.Pack PO Not Given QAM MELLISA Senna/Docusate Sodium 2 tab 12/17/24 17:00 12/21/24 09:12 Senna/Docusate Sodium Tablet PO 2 tab BID MELLISA Administration Radiology Results: ITS Impressions Chest X-Ray 12/17/24 06:11 Impression: 6.6 cm mass versus consolidation right upper lobe medially. Chest CT recommended to further evaluate. COPD. Hip/Pelvis X-Ray 12/17/24 06:12 Impression: Acute comminuted intertrochanteric fracture of the proximal right femur, as detailed above. Chest CT 12/17/24 09:39 Impression: Right upper lobe consolidation morphologically is most compatible with pneumonia. Hyperdense material within the pneumonia raises possibility of aspiration. Questionable areas of cavitation/necrosis within the pneumonia versus changes related to underlying severe diffuse emphysema. Follow-up to radiographic resolution is advised. Mediastinal and right hilar lymphadenopathy, presumably reactive. Modified Barium Swallow 12/19/24 15:07 IMPRESSION: Pharyngeal dysphagia with laryngeal penetration and aspiration after the swallow. Please correlate with speech pathologist findings and specific feeding recommendations. Labs Labs: Laboratory Results - last 24 hr 12/20/24 12/20/24 12/20/24 12:36 13:56 17:44 WBC 5.2 RBC 2.90 L Hgb 9.3 L Hct 29.6 L MCV 102.1 H MCH 32.1 MCHC 31.4 L RDW 14.6 H Plt Count 168 MPV 9.9 Immature Gran % (Auto) 0.4 Neut % (Auto) 73.9 H Lymph % (Auto) 11.7 L Reeves % (Auto) 11.5 H Eos % (Auto) 1.7 Baso % (Auto) 0.8 Lymph # (Auto) 0.61 L Reeves # (Auto) 0.6 Eos # (Auto) 0.1 Baso # (Auto) 0.0 Abs Immat Gran (auto) 0.02 Absolute Neuts (auto) 3.9 Absolute Nucleated RBC 0.000 Nucleated RBC % 0.0 Sodium 141 Potassium 3.3 L Chloride 109 H Carbon Dioxide 29 Anion Gap 3 L BUN 15 Creatinine 0.53 L Estim Creat Clear Calc 70 Estimated GFR > 60 Glucose 90 POC Capillary Glucose 151 H Calcium 7.7 L Total Bilirubin 0.4 AST 18 ALT 11 Alkaline Phosphatase 95 Total Protein 5.0 L Albumin 2.7 L Vancomycin Trough < 5.0 L 12/21/24 12/21/24 12/21/24 00:19 05:48 07:56 WBC RBC Hgb Hct MCV MCH MCHC RDW Plt Count MPV Immature Gran % (Auto) Neut % (Auto) Lymph % (Auto) Reeves % (Auto) Eos % (Auto) Baso % (Auto) Lymph # (Auto) Reeves # (Auto) Eos # (Auto) Baso # (Auto) Abs Immat Gran (auto) Absolute Neuts (auto) Absolute Nucleated RBC Nucleated RBC % Sodium 138 Potassium 3.2 L Chloride 102 Carbon Dioxide 32 H Anion Gap 4 BUN 8 L D Creatinine 0.53 L Estim Creat Clear Calc 70 Estimated GFR > 60 Glucose 97 POC Capillary Glucose 109 H 113 H Calcium 8.0 L Total Bilirubin 0.7 AST 23 ALT 11 Alkaline Phosphatase 108 Total Protein 6.0 L Albumin 3.0 L Vancomycin Trough
[2024-12-21 11:57] LABS: Glucose Point of Care 110 mg/dl (65-105)
[2024-12-21 18:33] LABS: Glucose Point of Care 103 mg/dl (65-105)
[2024-12-21] MEDS: POTASSIUM CHLORIDE INJ 40 MEQ in DEXTROSE 5%/LACTATED RINGERS 1,000 ML 60 MEQ IV CONT (19:43)
[2024-12-21 21:07] LABS: Glucose Point of Care 99 mg/dl (65-105)
[2024-12-22] VITALS (7 sets, daily range): BP systolic 97–111; BP diastolic 67–76; PULSE 68–97; RESP 16–20; TEMP 36.3–36.4; O2SAT 90–95; BMI 16.4
[2024-12-22 00:08] LABS: Glucose Point of Care 103 mg/dl (65-105)
[2024-12-22] MEDS: HYDROmorphone HCL INJ (*CRX) 2 MG/ML VIAL 0.5 MG IV PUSH (02:15)
[2024-12-22] MEDS: IPRATROPIUM 0.5 MG/ALBUTEROL SULFATE 2.5 MG AMPUL.NEB 3 ML INHALATION ×2 (02:20→20:12)
[2024-12-22] MEDS: WATER, STERILE FOR INJECTION 10 ML VIAL XX (02:27)
[2024-12-22 03:13] LABS: Basophils Percent Auto 0.4 % (0.2-1.2); Eosinophils Percent Auto 0.8 % (0-4.4); Hematocrit 30.1 % (42.0-52.0); Hemoglobin 9.6 g/dL (14.0-18.0); Immature Granulocyte Absolute 0.02 K/mm3 (0.00-0.031); Immature Granulocyte Percent A 0.4 % (0-0.5); Lymphocytes Absolute Auto 0.44 K/mm3 (0.9-3.2); Lymphocytes Percent Auto 9.3 % (18.3-44.2); Mean Corpuscular HGB Conc 31.9 g/dl (32-36); Mean Corpuscular Hemoglobin 31.7 pg (26-34); Mean Corpuscular Volume 99.3 fl (80-100); Monocytes Absolute Auto 0.5 K/mm3 (0.1-0.6); Monocytes Percent Auto 10.6 % (2.6-8.5); Neutrophils Absolute Auto 3.7 K/mm3 (1.3-6.7); Neutrophils Percent Auto 78.5 % (45.5-73.1); Platelet Count Result 174 k/mm3 (150-375); Red Blood Count 3.03 M/mm3 (4.6-6.20); Red Cell Distribution Width 14.2 % (11.5-14.5); White Blood Count 4.7 K/mm3 (4.5-10.0)
[2024-12-22 03:30] LABS: Alanine Aminotransferase 11 U/L (6-50); Alkaline Phosphatase 98 U/L (38-126); Anion Gap 6 mmol/L (4-12); Aspartate Amino Transferase 21 U/L (17-59); Bilirubin,Total 0.7 mg/dL (0.2-1.3); Blood Urea Nitrogen 8 mg/dL (9-20); Calcium 8.3 mg/dL (8.4-10.2); Carbon Dioxide 28 mmol/L (22-30); Chloride 102 mmol/L (98-107); Estimated CRCL calculation 75 ml/min; Estimated Glomerular Filt Rate > 60; Glucose 106 mg/dL (65-110); Potassium 3.6 mmol/L (3.4-5.0); Sodium 136 mmol/L (137-145)
[2024-12-22 03:34] LABS: Vancomycin Trough 9.4 ug/mL (10.0-20.0)
[2024-12-22] MEDS: VANCOMYCIN 1,750 MG/NS 500 ML 1,750 MG/500 ML BAG 250 MG IVPB ×2 (04:11→17:20)
[2024-12-22 06:11] LABS: Glucose Point of Care 95 mg/dl (65-105)
--- NOTE | 2024-12-22 06:54 | WPDGIPROGNO ---
Progress Note: A&P Assessment and Plan (1) Severe malnutrition: Code(s): E43 - Unspecified severe protein-calorie malnutrition Status: Acute Plan Patient is scheduled for PEG today. Lovenox dose was held last night. The patient is already receiving vancomycin and cefepime, enough antibiotic coverage prior to PEG placement. Subjective Date/time seen: 12/22/24 06:54 Objective Data Vital Signs Vital Signs: Vital Signs - 24 hr 12/21/24 07:59 12/21/24 07:59 12/21/24 08:07 Temperature Pulse Rate 76 74 Respiratory Rate 16 16 Blood Pressure Pulse Oximetry 96 Oxygen Delivery Room Air Fraction of Inspired Oxygen 12/21/24 14:07 12/21/24 14:09 12/21/24 14:09 Temperature 97.4 F L Pulse Rate 74 82 Respiratory Rate 20 16 Blood Pressure 104/77 Pulse Oximetry 99 96 Oxygen Delivery Room Air Fraction of Inspired Oxygen 12/21/24 14:17 12/21/24 19:45 12/21/24 19:55 Temperature Pulse Rate 80 75 75 Respiratory Rate 16 16 16 Blood Pressure Pulse Oximetry Oxygen Delivery Fraction of Inspired Oxygen 12/21/24 20:10 12/21/24 21:15 12/22/24 02:20 Temperature 98 F Pulse Rate 80 82 Respiratory Rate 16 16 Blood Pressure 117/70 Pulse Oximetry 98 97 Oxygen Delivery Room Air Fraction of Inspired Oxygen 12/22/24 02:30 12/22/24 05:49 Temperature 97.3 F L Pulse Rate 82 68 Respiratory Rate 16 20 Blood Pressure 105/76 Pulse Oximetry 91 Oxygen Delivery Fraction of Inspired Oxygen Intake/Output Intake/Output: Intake & Output 12/19/24 12/20/24 12/21/24 12/22/24 23:59 23:59 23:59 23:59 Intake Total 1780 2110 2340 Output Total 8468 322 6925 1050 Balance 580 1460 960 1050 Meds/Results Medications: Active Medications Generic Name Dose Route Start Last Admin Trade Name Freq PRN Reason Stop Dose Admin Acetaminophen 500 mg 12/17/24 14:52 12/18/24 08:12 Acetaminophen 500 Mg Tablet PO 500 mg Q6H PRN Administration Pain Rated 1-3 Hydrocodone Bitart/Acetaminophen 1 tab 12/17/24 14:52 12/20/24 05:24 Hydrocodone/Acetaminophen (*Crx) 5-325 Mg Tablet PO 1 tab Q4H PRN Administration Pain Rated 4-6 Albuterol/Ipratropium 3 ml 12/18/24 20:00 12/22/24 02:20 Ipratropium 0.5 Mg/Albuterol Sulfate 2.5 Mg Ampul.Neb 3 Ml INHALATION 3 ml Q6HRT MELLISA Administration Aspirin 81 mg 12/17/24 21:00 12/21/24 20:48 Aspirin 81 Mg Enteric Tablet PO Not Given Q12HR [facility] Dextrose 12.5 gm 12/19/24 19:34 Dextrose 50% 25 Gm/50 Ml Syringe IV PUSH PRN PRN Hypoglycemia Protocol Enoxaparin Sodium 40 mg 12/20/24 09:00 12/21/24 09:07 Enoxaparin 40 Mg/0.4 Ml Syringe SUB-Q 40 mg DAILY MELLISA Administration Famotidine 20 mg 12/17/24 21:00 12/21/24 20:48 Famotidine 20 Mg Tablet PO Not Given Q12HR [facility] Ferrous Sulfate 325 mg 12/18/24 12:00 12/21/24 11:24 Ferrous Sulfate [address] BY MOUTH Not Given DAILY@1200 [facility] Glucagon 1 mg 12/19/24 19:34 Glucagon For Inj 1 Mg Vial IM PRN PRN Hypoglycemia Protocol Glucose 15 gm 12/19/24 19:34 Glucose Oral Gel 15 Gm Of Glucse In 37.5 Gm Tube PO PRN PRN Hypoglycemia Protocol Hydromorphone HCl 1 mg 12/17/24 15:01 12/19/24 00:11 Hydromorphone Hcl Inj (*Crx) 2 Mg/Ml Vial IV PUSH 1 mg Q2H PRN Administration Breakthrough Pain Rated 7-10 or NPO Hydromorphone HCl 0.5 mg 12/17/24 15:02 12/22/24 02:15 Hydromorphone Hcl Inj (*Crx) 2 Mg/Ml Vial IV PUSH 0.5 mg Q2H PRN Administration Breakthrough Pain Rated 4-6 or NPO Hydroxyzine Pamoate 50 mg 12/17/24 14:47 Hydroxyzine Pamoate 25 Mg Capsule PO Q4H PRN Itching Cefepime HCl 2 gm in 50 mls @ 100 mls/hr 12/18/24 11:00 12/21/24 21:10 Maxipime 2 Gm/Ns 50 Ml IVPB 04/30/25 21:29 Infused Q12HR MELLISA Infusion Potassium Chloride 40 meq/ 1,020 mls @ 60 mls/hr 12/19/24 13:00 12/21/24 19:43 Dextrose/Lactated Ringer's IV CONT 60 mls/hr .Q17H MELLISA Administration Dextrose 1,000 mls @ 100 mls/hr 12/19/24 19:34 Dextrose 5% 1,000 Ml IVPB PRN PRN Hypoglycemia Protocol Vancomycin HCl 1,750 mg in 500 mls @ 250 mls/hr 12/22/24 04:00 12/22/24 04:11 Vancomycin 1,750 Mg/Ns 500 Ml IVPB 250 mls/hr Q12H MELLISA Administration Magnesium Hydroxide 30 ml 12/17/24 14:52 Magnesium Hydroxide Susp 30 Ml Udc PO BID PRN Constipation Metoclopramide HCl 10 mg 12/17/24 08:20 Metoclopramide Hcl Inj 10 Mg/2 Ml Vial IV PUSH Q6H PRN Nausea And Vomiting Midodrine 5 mg 12/18/24 09:00 12/21/24 13:54 Midodrine Hcl 2.5 Mg Tablet PO Not Given TID [facility] Midodrine 10 mg 12/18/24 09:00 12/21/24 13:54 Midodrine Hcl 10 Mg Tablet PO Not Given TID [facility] Morphine Sulfate 2 mg 12/17/24 06:29 12/21/24 05:28 Morphine Sulfate (*Crx) 2 Mg/Ml Inj IV PUSH 2 mg Q2H PRN Administration Pain Rated 7-10 Naloxone HCl 0.1 mg 12/17/24 14:47 Naloxone Hcl 0.4 Mg/Ml Vial IV PUSH Q2M PRN Opiate Reversal Nicotine 1 patch 12/18/24 16:25 12/21/24 08:55 Nicotine (*Pbkc) 14 Mg Patch TRANSDERM 1 patch DAILY MELLISA Administration Ondansetron HCl 4 mg 12/17/24 14:47 12/21/24 08:59 Ondansetron Inj 4 Mg/2 Ml Vial IV PUSH 4 mg Q4H PRN Administration Nausea And Vomiting Oxycodone/Acetaminophen 1 tab 12/17/24 08:19 12/20/24 09:24 Oxycodone/Acetaminophen (*Crx) 10-325 Mg Tablet PO 1 tab Q4H PRN Administration Pain Rated 7-10 Pantoprazole Sodium 40 mg 12/17/24 17:00 12/21/24 13:54 Pantoprazole 40 Mg Tablet PO Not Given BID [facility] Polyethylene Glycol 17 gm 12/18/24 09:00 12/21/24 09:11 Polyethylene Glycol 3350 17 Gm Powd.Pack PO Not Given QAM [facility] Senna/Docusate Sodium 2 tab 12/17/24 17:00 12/21/24 13:54 Senna/Docusate Sodium Tablet PO Not Given BID [facility] Radiology Results: ITS Impressions Chest X-Ray 12/17/24 06:11 Impression: 6.6 cm mass versus consolidation right upper lobe medially. Chest CT recommended to further evaluate. COPD. Hip/Pelvis X-Ray 12/17/24 06:12 Impression: Acute comminuted intertrochanteric fracture of the proximal right femur, as detailed above. Chest CT 12/17/24 09:39 Impression: Right upper lobe consolidation morphologically is most compatible with pneumonia. Hyperdense material within the pneumonia raises possibility of aspiration. Questionable areas of cavitation/necrosis within the pneumonia versus changes related to underlying severe diffuse emphysema. Follow-up to radiographic resolution is advised. Mediastinal and right hilar lymphadenopathy, presumably reactive. Modified Barium Swallow 12/19/24 15:07 IMPRESSION: Pharyngeal dysphagia with laryngeal penetration and aspiration after the swallow. Please correlate with speech pathologist findings and specific feeding recommendations. Labs Labs: Laboratory Results - last 24 hr 12/21/24 12/21/24 12/21/24 07:56 11:55 18:30 WBC RBC Hgb Hct MCV MCH MCHC RDW Plt Count MPV Immature Gran % (Auto) Neut % (Auto) Lymph % (Auto) Teller % (Auto) Eos % (Auto) Baso % (Auto) Lymph # (Auto) Teller # (Auto) Eos # (Auto) Baso # (Auto) Abs Immat Gran (auto) Absolute Neuts (auto) Absolute Nucleated RBC Nucleated RBC % Sodium Potassium Chloride Carbon Dioxide Anion Gap BUN Creatinine Estim Creat Clear Calc Estimated GFR Glucose POC Capillary Glucose 113 H 110 H 103 Calcium Total Bilirubin AST ALT Alkaline Phosphatase Total Protein Albumin Vancomycin Trough 12/21/24 12/22/24 12/22/24 21:02 00:04 03:05 WBC 4.7 RBC 3.03 L Hgb 9.6 L Hct 30.1 L MCV 99.3 MCH 31.7 MCHC 31.9 L RDW 14.2 Plt Count 174 MPV 10.0 Immature Gran % (Auto) 0.4 Neut % (Auto) 78.5 H Lymph % (Auto) 9.3 L Teller % (Auto) 10.6 H Eos % (Auto) 0.8 Baso % (Auto) 0.4 Lymph # (Auto) 0.44 L Teller # (Auto) 0.5 Eos # (Auto) 0.0 Baso # (Auto) 0.0 Abs Immat Gran (auto) 0.02 Absolute Neuts (auto) 3.7 Absolute Nucleated RBC 0.000 Nucleated RBC % 0.0 Sodium 136 L Potassium 3.6 Chloride 102 Carbon Dioxide 28 Anion Gap 6 BUN 8 L Creatinine 0.49 L Estim Creat Clear Calc 75 Estimated GFR > 60 Glucose 106 POC Capillary Glucose 99 103 Calcium 8.3 L Total Bilirubin 0.7 AST 21 ALT 11 Alkaline Phosphatase 98 Total Protein 6.0 L Albumin 3.0 L Vancomycin Trough 9.4 L 12/22/24 06:01 WBC RBC Hgb Hct MCV MCH MCHC RDW Plt Count MPV Immature Gran % (Auto) Neut % (Auto) Lymph % (Auto) Teller % (Auto) Eos % (Auto) Baso % (Auto) Lymph # (Auto) Teller # (Auto) Eos # (Auto) Baso # (Auto) Abs Immat Gran (auto) Absolute Neuts (auto) Absolute Nucleated RBC Nucleated RBC % Sodium Potassium Chloride Carbon Dioxide Anion Gap BUN Creatinine Estim Creat Clear Calc Estimated GFR Glucose POC Capillary Glucose 95 Calcium Total Bilirubin AST ALT Alkaline Phosphatase Total Protein Albumin Vancomycin Trough
[2024-12-22] MEDS: ONDANSETRON INJ 4 MG/2 ML VIAL IV PUSH (08:33)
--- NOTE | 2024-12-22 09:13 | PCRCNOTE ---
Window of time for administration has passed. See next scheduled administration.
--- NOTE | 2024-12-22 10:32 | PCDIET ---
TUBE FEEDING RECOMMENDATIONS: Jevity 1.5 @ goal rate 50 ml/h to provide 1650 kcal, 70 g protein, 836 ml free water. Flush 125 ml free water q 4 hours for total free water 1585 ml/day. Due to refeeding risk, initiate tube feeding at 20 ml/h to advance 10 ml q 12 hours. Recommend 100 mg thiamine daily 5/7 days. Recommend complete MVI for 7 days. Recommend monitoring electrolytes (potassium, phosphorus, magnesium) once daily.
--- NOTE | 2024-12-22 10:40 | P.PNPL_ITS ---
Progress Note: A&P Assessment and Plan (1) Necrotizing pneumonia: Code(s): J85.0 - Gangrene and necrosis of lung Status: Acute Assessment and Plan: He has a large cavitary right upper lobe lung lesion with severe end-stage emphysema. Compared to his CT scan result that we have from [facility] September 23, 2024 the description sounds similar in some ways and improved. Infection vs malignancy. HIV negative, MRSA swab negative. QuantiFERON gold pending. Unable to provide sputum. 12/19/24: His brother Doc told me that he agreed to DNR status, and will agree to go for rehab after his discharge. He is wasting quickly, may have malignancy in the RUL. I think he would be at risk having a bronchoscopy and I do not think we would get any meaningful information. I would not be able to reach the cavitating lesion in the right upper lobe by bronchoscopy because it is too distal. Plan: Continue treating for possible necrotizing pneumonia. 12/22/2024: Patient denies any breathing issues and says he is breathing normally. He does have a cough which he cannot clear secretions from. He denies any phlegm production or hemoptysis. He is afebrile. White blood cell count 4.7, creatinine 0.49. Room air saturations 97%. Chest x-ray with right upper lobe mass unchanged from 12/17/2024. Patient scheduled for PEG later today. Plan: Patient is on vancomycin and cefepime, both day 5. QuantiFERON gold pending. Once PEG tube is placed, will plan on changing to Augmentin for 3 weeks. Will follow with you. (2) End stage chronic obstructive pulmonary disease: Code(s): J44.9 - Chronic obstructive pulmonary disease, unspecified Status: Acute Assessment and Plan: $5 PY tobacco use, still smoking up until this admission. On no out patient treatment. He has advanced panlobular emphysema on his CT scan of chest, has not wanted to see any doctors for routine care, continues to smoke. Wasting, losing wt for months at least 6 months, may be attributable to pulmonary cachexia or malignancy in the right lung. Room air saturations 97%. Patient is having some difficulty expectorating. 12/22/24: He has no wheezing and no evidence of a COPD exacerbation. Will continue DuoNebs q.6 hours. I will check an alpha 1 anti trypsin genotype and level on 12/23/2024. Will not administer inhaled corticosteroids given possibility of infectious etiology as above. I will add guaifenesin 1200 mg p.o. b.i.d. and a Cornet flutter valve. I will check an overnight oximetry on room air to assess for nocturnal hypoxemia. (3) Suspected pulmonary aspiration of food: Code(s): R09.89 - Other specified symptoms and signs involving the circulatory and respiratory systems Status: Acute Assessment and Plan: He does say he has been choking on food at home, poor dentition. Swallow evaluation indicated. 12/19/24: Impressions: severe dysphagia with silent aspiration after the swallow of thin liquids and puree consistency. Recommendation: NPO; an alternative means of nutrition is recommended. ST for dysphagia therapy but it is doubtful that the pt will return to oral intake during this admission. 12/22/24: Patient is scheduled for PEG tube later today. Subjective Date/time seen: 12/22/24 10:40 Interval history: 12/18/2024; new consult; Gera Dennis is 74-years old, admitted with a right hip fracture, had surgery 12/17. He has an abnormal chest CT with possible necrotizing pneumonia. He has an indwelling Gabriel, COPD, pulmonary nodules, has been at [facility] in [facility] when he had urinary retention, possible GI bleed, and [facility] had beds. He was discharged on September 22 with an indwelling Gabriel, was not on oxygen. He was sent home with an order for several meds and 1 of them was Incruse, umeclidinium, but he stopped all the meds on his own. He had no follow-up with Urology, Pulmonary or GI. He has no primary care doctor. His brother and partner also tell me that he was in [facility] he may be 6 months ago with urinary retention, had some sort of prostate procedure but not a removal of his prostate. Patient came to [place] with a fall and right hip fracture December 16, went to OR yesterday for repair. I was asked to see him for abnormal chest CT. He has been a smoker for at least 40 years about a pack per day. He has had tremendous weight loss in last 6-12 months, maybe 30 pounds. He is having difficulty swallowing. He is very short of breath with walking. He has poor appetite. He has a chronic cough with sputum production. He wheezes at times. He has had a few episodes of pneumonia in the last few years. He goes to urgent care when he needs treatment, does not have any continuity of care. He does not have home oxygen. He was sent home from the hospital on Incruse, does not use any inhaler currently. His brother and his partner know that he has had an abnormal chest CT for a long time. He has never had a bronchoscopy. He has never followed up with any pulmonary physician. He has not been told that he has cancer or any specific type of infection. He has never been tested for HIV. He has some sort of untreated mental condition. His partner Gera tells me that the patient does not have hallucinations or paranoid thoughts. He has never had an official diagnosis but he has significant problems managing his life. He quit paying taxes several years ago. He moved away to [place] in , moved back to this area but remained mostly estranged from his family. He has been in touch with his younger brother, Doc who is here today. 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 No . No exposure to vapors, fumes, dust, silica, asbestos. No high risk environment such is alf. 12/19/2024; follow up visit; His brother Doc is present. Patient is sitting up in a chair, in room air. Feels better, less short of breath. His urine grew Providencia rettgeri and Alcaligenes faecalis; he had indwelling Gabriel that has not been changed for months. Providencia is a notorious opportunistic pathogen capable of causing serious nosocomial infections, mainly urinary tract infections (UTIs). These are hard to treat due to the resistance seen in clinical strains. Alcaligenes is a rare a bacterium that can cause urinary tract infections (UTIs), though it's considered a rare cause.?He is on Cefepime & vanco. May help with possible pneumonia. HIV testing is pending, sent 12/18. HIV negative. MRSA swab negative. 12/22/2024: Patient denies any breathing issues and says he is breathing normally. He does have a cough which he cannot clear secretions from. He denies any phlegm production or hemoptysis. He is afebrile. White blood cell count 4.7, creatinine 0.49. Room air saturations 97%. Chest x-ray with right upper lobe mass unchanged from 12/17/2024. Patient scheduled for PEG later today. DATA * 12/17/2024: Chest CT There are enlarged right paratracheal, right hilar, and subcarinal lymph nodes. Largest node is probably in the right paratracheal stripe measuring approximately 2.1 cm in diameter.. There is no filling defect in the pulmonary arterial tree to suggest pulmonary embolus. There is no evidence of aortic dissection or aneurysm. There is no evidence of pleural or pericardial effusion. Posterior right upper lobe consolidation is present, most compatible with pneumonia. Small amount of hyperdense material present in the consolidation raising possibility of aspiration. Questionable areas of necrosis within the pneumonia versus changes related to underlying severe emphysema. There is probable linear scarring in the lateral left upper lobe. Images through the upper abdomen reveal no abnormalities. Impression: Right upper lobe consolidation morphologically is most compatible with pneumonia . Hyperdense material within the pneumonia raises possibility of aspiration. Questionable areas of cavitation/necrosis within the pneumonia versus changes related to underlying severe diffuse emphysema. Follow-up to radiographic resolution is advised. Mediastinal and right hilar lymphadenopathy, presumably reactive. * 09/23/2024. chest CT [facility]; Large dense parenchymal consolidation involving the posterior half of the right upper lobe consistent with lobar pneumonia. Multiple small foci of air-filled cavitation noted in the infiltrate. Additionally there are patchy areas of irregular shaped consolidation in the anterior half the right upper lobe measuring up to 1.7 cm. Smaller consolidative area in the lateral segment of the right middle lobe. Small layering right parapneumonic effusion. Mild linear band of scarring versus atelectasis in the left upper lobe. Left lung otherwise free of infiltrate. Lung hyperinflation with severe centrilobular and panlobular emp hysema. Enlarged 2.6 cm right paratracheal lymph node. Mild right hilar lymphadenopathy with maximum diameter 1.4 cm. Multiple coronary artery calcification. 6.2 x 3.4 cm fluid density in the upper pole of the left kidney either representing hydronephrosis or a large parapelvic cyst. Review of Systems Constitutional: Constitutional: Reports no additional constitutional complaints Eyes: Eyes: Reports no additional eye complaints ENT: Reports system reviewed and no additional complaints, except as documented Cardiovascular: Cardiovascular: Reports no additional cardiovascular complaints Respiratory: Respiratory: Reports no additional respiratory complaints Gastrointestinal: Gastrointestinal: Reports no additional gastrointestinal complaints Musculoskeletal: Musculoskeletal: Reports no additional musculoskeletal complaints Neurologic: Reports system reviewed and no additional complaints, except as documented Psychiatric: Psychiatric: Reports no additional psychiatric complaints Endocrine: Endocrine: Reports no additional endocrine complaints Hematologic/Lymphatic: Hematologic/Lymphatic: Reports no additional hematologic/lymphatic complaints Allergic/Immunologic: Allergic/Immunologic: Reports no additional allergic/immunologic complaints Exam Const: General: cooperative, comfortable and no acute distress Orientation/consciousness: oriented to person, oriented to place and oriented to time Other: cachectic HENMT: Head: normal to inspection Ears: hearing grossly normal bilaterally Eyes: General: appearance normal, both eyes and all related structures Neck: Neck: normal visual inspection Chest: Chest palpation & inspection: normal inspection of the chest Resp: Effort & Inspection: normal respiratory effort and able to speak in complete sentences Auscultation: no crackles, no rales, no rhonchi, no wheezes and lung sounds not diminished Cardio: Jugular venous distension: no JVD GI: Inspection: normal to inspection GI Palp: No abdominal tenderness Skin: General skin exam: normal color Neuro: General: oriented to person, oriented to place and oriented to time Other: patient is slow to respond and responds in appropriate at times. Extrem: General: normal to inspection Other: Thin and wasted extremities. Psych: Appearance: grossly normal Objective Data Vital Signs Vital Signs: Vital Signs - 24 hr 12/21/24 14:07 12/21/24 14:09 12/21/24 14:09 Temperature 36.3 C L Pulse Rate 74 82 Respiratory Rate 20 16 Blood Pressure 104/77 Pulse Oximetry 99 96 Oxygen Delivery Room Air Fraction of Inspired Oxygen 12/21/24 14:17 12/21/24 19:45 12/21/24 19:55 Temperature Pulse Rate 80 75 75 Respiratory Rate 16 16 16 Blood Pressure Pulse Oximetry Oxygen Delivery Fraction of Inspired Oxygen 12/21/24 20:10 12/21/24 21:15 12/22/24 02:20 Temperature 36.6 C Pulse Rate 80 82 Respiratory Rate 16 16 Blood Pressure 117/70 Pulse Oximetry 98 97 Oxygen Delivery Room Air Fraction of Inspired Oxygen 12/22/24 02:30 12/22/24 05:49 Temperature 36.3 C L Pulse Rate 82 68 Respiratory Rate 16 20 Blood Pressure 105/76 Pulse Oximetry 91 Oxygen Delivery Fraction of Inspired Oxygen Intake/Output Intake/Output: Intake & Output 12/19/24 12/20/24 12/21/24 12/22/24 23:59 23:59 23:59 23:59 Intake Total 1780 2110 2340 Output Total 3390 727 8058 1050 Balance 580 1460 960 1050 Meds/Results Medications: Active Medications Generic Name Dose Route Start Last Admin Trade Name Freq PRN Reason Stop Dose Admin Acetaminophen 500 mg 12/17/24 14:52 12/18/24 08:12 Acetaminophen 500 Mg Tablet PO 500 mg Q6H PRN Administration Pain Rated 1-3 Hydrocodone Bitart/Acetaminophen 1 tab 12/17/24 14:52 12/20/24 05:24 Hydrocodone/Acetaminophen (*Crx) 5-325 Mg Tablet PO 1 tab Q4H PRN Administration Pain Rated 4-6 Albuterol/Ipratropium 3 ml 12/18/24 20:00 12/22/24 09:13 Ipratropium 0.5 Mg/Albuterol Sulfate 2.5 Mg Ampul.Neb 3 Ml INHALATION Not Given Q6HRT [facility] Aspirin 81 mg 12/17/24 21:00 12/21/24 20:48 Aspirin 81 Mg Enteric Tablet PO Not Given Q12HR MELLISA Dextrose 12.5 gm 12/19/24 19:34 Dextrose 50% 25 Gm/50 Ml Syringe IV PUSH PRN PRN Hypoglycemia Protocol Enoxaparin Sodium 40 mg 12/20/24 09:00 12/21/24 09:07 Enoxaparin 40 Mg/0.4 Ml Syringe SUB-Q 40 mg DAILY MELLISA Administration Famotidine 20 mg 12/17/24 21:00 12/21/24 20:48 Famotidine 20 Mg Tablet PO Not Given Q12HR MELLISA Ferrous Sulfate 325 mg 12/18/24 12:00 12/21/24 11:24 Ferrous Sulfate [address] BY MOUTH Not Given DAILY@1200 [facility] Glucagon 1 mg 12/19/24 19:34 Glucagon For Inj 1 Mg Vial IM PRN PRN Hypoglycemia Protocol Glucose 15 gm 12/19/24 19:34 Glucose Oral Gel 15 Gm Of Glucse In 37.5 Gm Tube PO PRN PRN Hypoglycemia Protocol Hydromorphone HCl 1 mg 12/17/24 15:01 12/19/24 00:11 Hydromorphone Hcl Inj (*Crx) 2 Mg/Ml Vial IV PUSH 1 mg Q2H PRN Administration Breakthrough Pain Rated 7-10 or NPO Hydromorphone HCl 0.5 mg 12/17/24 15:02 12/22/24 02:15 Hydromorphone Hcl Inj (*Crx) 2 Mg/Ml Vial IV PUSH 0.5 mg Q2H PRN Administration Breakthrough Pain Rated 4-6 or NPO Hydroxyzine Pamoate 50 mg 12/17/24 14:47 Hydroxyzine Pamoate 25 Mg Capsule PO Q4H PRN Itching Cefepime HCl 2 gm in 50 mls @ 100 mls/hr 12/18/24 11:00 12/21/24 21:10 Maxipime 2 Gm/Ns 50 Ml IVPB 12/24/24 21:29 Infused Q12HR MELLISA Infusion Potassium Chloride 40 meq/ 1,020 mls @ 60 mls/hr 12/19/24 13:00 12/21/24 19:43 Dextrose/Lactated Ringer's IV CONT 60 mls/hr .Q17H MELLISA Administration Dextrose 1,000 mls @ 100 mls/hr 12/19/24 19:34 Dextrose 5% 1,000 Ml IVPB PRN PRN Hypoglycemia Protocol Vancomycin HCl 1,750 mg in 500 mls @ 250 mls/hr 12/22/24 04:00 12/22/24 04:11 Vancomycin 1,750 Mg/Ns 500 Ml IVPB 250 mls/hr Q12H MELLISA Administration Magnesium Hydroxide 30 ml 12/17/24 14:52 Magnesium Hydroxide Susp 30 Ml Udc PO BID PRN Constipation Metoclopramide HCl 10 mg 12/17/24 08:20 Metoclopramide Hcl Inj 10 Mg/2 Ml Vial IV PUSH Q6H PRN Nausea And Vomiting Midodrine 5 mg 12/18/24 09:00 12/21/24 13:54 Midodrine Hcl 2.5 Mg Tablet PO Not Given TID MELLISA Midodrine 10 mg 12/18/24 09:00 12/21/24 13:54 Midodrine Hcl 10 Mg Tablet PO Not Given TID [facility] Morphine Sulfate 2 mg 12/17/24 06:29 12/21/24 05:28 Morphine Sulfate (*Crx) 2 Mg/Ml Inj IV PUSH 2 mg Q2H PRN Administration Pain Rated 7-10 Naloxone HCl 0.1 mg 12/17/24 14:47 Naloxone Hcl 0.4 Mg/Ml Vial IV PUSH Q2M PRN Opiate Reversal Nicotine 1 patch 12/18/24 16:25 12/21/24 08:55 Nicotine (*Pbkc) 14 Mg Patch TRANSDERM 1 patch DAILY [facility] Administration Ondansetron HCl 4 mg 12/17/24 14:47 12/22/24 08:33 Ondansetron Inj 4 Mg/2 Ml Vial IV PUSH 4 mg Q4H PRN Administration Nausea And Vomiting Oxycodone/Acetaminophen 1 tab 12/17/24 08:19 12/20/24 09:24 Oxycodone/Acetaminophen (*Crx) 10-325 Mg Tablet PO 1 tab Q4H PRN Administration Pain Rated 7-10 Pantoprazole Sodium 40 mg 12/17/24 17:00 12/21/24 13:54 Pantoprazole 40 Mg Tablet PO Not Given BID [facility] Polyethylene Glycol 17 gm 12/18/24 09:00 12/21/24 09:11 Polyethylene Glycol 3350 17 Gm Powd.Pack PO Not Given QAM [facility] Senna/Docusate Sodium 2 tab 12/17/24 17:00 12/21/24 13:54 Senna/Docusate Sodium Tablet PO Not Given BID [facility] Radiology Results: ITS Impressions Hip/Pelvis X-Ray 12/17/24 06:12 Impression: Acute comminuted intertrochanteric fracture of the proximal right femur, as detailed above. Chest CT 12/17/24 09:39 Impression: Right upper lobe consolidation morphologically is most compatible with pneumonia. Hyperdense material within the pneumonia raises possibility of aspiration. Questionable areas of cavitation/necrosis within the pneumonia versus changes related to underlying severe diffuse emphysema. Follow-up to radiographic resolution is advised. Mediastinal and right hilar lymphadenopathy, presumably reactive. Modified Barium Swallow 12/19/24 15:07 IMPRESSION: Pharyngeal dysphagia with laryngeal penetration and aspiration after the swallow. Please correlate with speech pathologist findings and specific feeding recommendations. Chest X-Ray 12/22/24 09:08 IMPRESSION: Right upper lobe mass unchanged. Labs Labs: Laboratory Results - last 24 hr 12/21/24 12/21/24 12/21/24 11:55 18:30 21:02 WBC RBC Hgb Hct MCV MCH MCHC RDW Plt Count MPV Immature Gran % (Auto) Neut % (Auto) Lymph % (Auto) Stanley % (Auto) Eos % (Auto) Baso % (Auto) Lymph # (Auto) Stanley # (Auto) Eos # (Auto) Baso # (Auto) Abs Immat Gran (auto) Absolute Neuts (auto) Absolute Nucleated RBC Nucleated RBC % Sodium Potassium Chloride Carbon Dioxide Anion Gap BUN Creatinine Estim Creat Clear Calc Estimated GFR Glucose POC Capillary Glucose 110 H 103 99 Calcium Total Bilirubin AST ALT Alkaline Phosphatase Total Protein Albumin Vancomycin Trough 12/22/24 12/22/24 12/22/24 00:04 03:05 06:01 WBC 4.7 RBC 3.03 L Hgb 9.6 L Hct 30.1 L MCV 99.3 MCH 31.7 MCHC 31.9 L RDW 14.2 Plt Count 174 MPV 10.0 Immature Gran % (Auto) 0.4 Neut % (Auto) 78.5 H Lymph % (Auto) 9.3 L Stanley % (Auto) 10.6 H Eos % (Auto) 0.8 Baso % (Auto) 0.4 Lymph # (Auto) 0.44 L Stanley # (Auto) 0.5 Eos # (Auto) 0.0 Baso # (Auto) 0.0 Abs Immat Gran (auto) 0.02 Absolute Neuts (auto) 3.7 Absolute Nucleated RBC 0.000 Nucleated RBC % 0.0 Sodium 136 L Potassium 3.6 Chloride 102 Carbon Dioxide 28 Anion Gap 6 BUN 8 L Creatinine 0.49 L Estim Creat Clear Calc 75 Estimated GFR > 60 Glucose 106 POC Capillary Glucose 103 95 Calcium 8.3 L Total Bilirubin 0.7 AST 21 ALT 11 Alkaline Phosphatase 98 Total Protein 6.0 L Albumin 3.0 L Vancomycin Trough 9.4 L
[2024-12-22 13:26] LABS: Glucose Point of Care 88 mg/dl (65-105)
[2024-12-22] MEDS: HYDROmorphone HCL INJ (*CRX) 2 MG/ML VIAL 1 MG IV PUSH (13:47)
--- NOTE | 2024-12-22 15:07 | P.PNIM_ITS ---
Progress Note: A&P Assessment and Plan (1) Closed intertrochanteric fracture of right femur: Code(s): S72.141A - Displaced intertrochanteric fracture of right femur, initial encounter for closed fracture Status: Acute Assessment and Plan: Ortho consult noted. Will start physical therapy. (2) Fall from ground level: Code(s): W18.30XA - Fall on same level, unspecified, initial encounter Status: Acute Assessment and Plan: Physical therapy and pain management (3) Lung nodule: Code(s): R91.1 - Solitary pulmonary nodule Status: Acute Assessment and Plan: Out Patient follow up and monitoring (4) Necrotizing pneumonia: Code(s): J85.0 - Gangrene and necrosis of lung Status: Acute Assessment and Plan: Continue IV antibiotics (5) Severe malnutrition: Code(s): E43 - Unspecified severe protein-calorie malnutrition Status: Acute Assessment and Plan: GI evaluation and possible PEG placement Plan Right hip fracture Patient had a fall and sustained severe right hip pain Hip pelvis x-ray showed acute comminuted intertrochanteric fracture of the proximal right femur Optimize pain management Consult orthopedic surgeon Status post Right Hip Intra-Medullary Shiv Fixation of IT Fracture 12/17 Start PT OT, cleared by orthopedic surgeon Necrotizing pneumonia Lung nodule was found on x-ray initially. Chest x-ray shows 6.6 cm mass versus consolidation right upper lobe medially. CT showed right upper lobe consolidation morphologically is most compatible with pneumonia. Hyperdense material within the pneumonia raises possibility of aspiration. Questionable areas of cavitation/necrosis within the pneumonia versus changes related to underlying severe diffuse emphysema Patient is on cefepime, start vancomycin IV Consult focused factory manager for evaluation treatment Dehydration Labs reviewed, elevated BUN creatinine ratio 30/0.97 Received fluid for resuscitation Dysphagia Tube feeding was provided Indwelling folic catheter, urinary retention Consult urologist for evaluation treatment Complicated UTI due to indwelling catheter UA shows pyuria, urine culture grows Providencia rettger and Alcaligenes faecalis Switch from Ancef to cefepime IV Severe malnutrition Consult dietitian Patient is at end stage of life, patient family request to transfer patient to comfort care today and discontinue any medical management except medications for comfort only. Family also request to speak with hospice team tomorrow Will transfer patient to comfort care per patient family requirement Subjective Date/time seen: 12/22/24 15:07 Interval history: When I saw examined patient in present patient family, patient was unresponsive to verbal commands, but no obvious distress Exam Narrative: GENERAL: Ill-appearing,. Severe malnutrition - EYES: Anicteric. - HENT: Dry mucous membranes. Heart he aring - LUNGS, no wheezing, rhonchi, or rales. - CARDIOVASCULAR: Regular rate and rhyth m. No murmur. No JVD. - ABDOMEN: Soft, non-tender and non-dist ended. No palpable masses. - EXTREMITIES: No edema. Peripheral puls es 2+. Restricted movement of right hip because of pain - NEUROLOGIC: No focal neurological defi cits. CN II-XII grossly intact. - PSYCHIATRIC: Unresponsive and not elsa ented x 3. - SKIN: Surgical wound is dry and clean - LYMPH: No cervical lymphadenopathy. Objective Data Vital Signs Vital Signs: Vital Signs - 24 hr 12/21/24 19:45 12/21/24 19:55 12/21/24 20:10 Temperature Pulse Rate 75 75 Respiratory Rate 16 16 Blood Pressure Pulse Oximetry 98 Oxygen Delivery Room Air Fraction of Inspired Oxygen 21 12/21/24 21:15 12/22/24 02:20 12/22/24 02:30 Temperature 98 F Pulse Rate 80 82 82 Respiratory Rate 16 16 16 Blood Pressure 117/70 Pulse Oximetry 97 Oxygen Delivery Fraction of Inspired Oxygen 12/22/24 05:49 12/22/24 08:00 12/22/24 14:00 Temperature 97.3 F L 97.5 F L Pulse Rate 68 81 Respiratory Rate 20 16 Blood Pressure 105/76 97/69 L Pulse Oximetry 91 90 Oxygen Delivery Room Air Fraction of Inspired Oxygen Intake/Output Intake/Output: Intake & Output 12/19/24 12/20/24 12/21/24 12/22/24 23:59 23:59 23:59 23:59 Intake Total 1780 2110 2340 Output Total 1857 862 8684 1050 Balance 580 1460 -960 -1050 Meds/Results Medications: Active Medications Generic Name Dose Route Start Last Admin Trade Name Freq PRN Reason Stop Dose Admin Acetaminophen 500 mg 12/17/24 14:52 12/18/24 08:12 Acetaminophen 500 Mg Tablet PO 500 mg Q6H PRN Administration Pain Rated 1-3 Hydrocodone Bitart/Acetaminophen 1 tab 12/17/24 14:52 12/20/24 05:24 Hydrocodone/Acetaminophen (*Crx) 5-325 Mg Tablet PO 1 tab Q4H PRN Administration Pain Rated 4-6 Albuterol/Ipratropium 3 ml 12/18/24 20:00 12/22/24 14:33 Ipratropium 0.5 Mg/Albuterol Sulfate 2.5 Mg Ampul.Neb 3 Ml INHALATION Not Given Q6HRT [facility] Amoxicillin/Clavulanate Potassium 880 mg 12/25/24 09:00 Amoxicillin/Clavulanate K Susp 400-57 Mg/5 Ml 5 Ml Ud PO 01/07/25 21:01 Q12HR [facility] Aspirin 81 mg 12/17/24 21:00 12/22/24 09:00 Aspirin 81 Mg Enteric Tablet PO Not Given Q12HR [facility] Dextrose 12.5 gm 12/19/24 19:34 Dextrose 50% 25 Gm/50 Ml Syringe IV PUSH PRN PRN Hypoglycemia Protocol Enoxaparin Sodium 40 mg 12/20/24 09:00 12/22/24 09:00 Enoxaparin 40 Mg/0.4 Ml Syringe SUB-Q Not Given DAILY [facility] Famotidine 20 mg 12/17/24 21:00 12/22/24 09:00 Famotidine 20 Mg Tablet PO Not Given Q12HR [facility] Ferrous Sulfate 325 mg 12/18/24 12:00 12/22/24 13:30 Ferrous Sulfate [address] BY MOUTH Not Given DAILY@1200 [facility] Glucagon 1 mg 12/19/24 19:34 Glucagon For Inj 1 Mg Vial IM PRN PRN Hypoglycemia Protocol Glucose 15 gm 12/19/24 19:34 Glucose Oral Gel 15 Gm Of Glucse In 37.5 Gm Tube PO PRN PRN Hypoglycemia Protocol Guaifenesin 1,200 mg 12/22/24 10:55 12/22/24 11:30 Guaifenesin 12 Hr 600 Mg Tabcr PO Not Given Q12HR [facility] Hydromorphone HCl 1 mg 12/17/24 15:01 12/22/24 13:47 Hydromorphone Hcl Inj (*Crx) 2 Mg/Ml Vial IV PUSH 1 mg Q2H PRN Administration Breakthrough Pain Rated 7-10 or NPO Hydromorphone HCl 0.5 mg 12/17/24 15:02 12/22/24 02:15 Hydromorphone Hcl Inj (*Crx) 2 Mg/Ml Vial IV PUSH 0.5 mg Q2H PRN Administration Breakthrough Pain Rated 4-6 or NPO Hydroxyzine Pamoate 50 mg 12/17/24 14:47 Hydroxyzine Pamoate 25 Mg Capsule PO Q4H PRN Itching Cefepime HCl 2 gm in 50 mls @ 100 mls/hr 12/18/24 11:00 12/22/24 11:39 Maxipime 2 Gm/Ns 50 Ml IVPB 12/24/24 21:29 Not Given Q12HR [facility] Potassium Chloride 40 meq/ 1,020 mls @ 60 mls/hr 12/19/24 13:00 12/21/24 19:43 Dextrose/Lactated Ringer's IV CONT 60 mls/hr .Q17H ME[facility] Administration Dextrose 1,000 mls @ 100 mls/hr 12/19/24 19:34 Dextrose 5% 1,000 Ml IVPB PRN PRN Hypoglycemia Protocol Vancomycin HCl 1,750 mg in 500 mls @ 250 mls/hr 12/22/24 04:00 12/22/24 04:11 Vancomycin 1,750 Mg/Ns 500 Ml IVPB 12/22/24 18:30 250 mls/hr Q12H [facility] Administration Linezolid 600 mg 12/22/24 21:00 Linezolid 600 Mg Tablet PO 12/24/24 21:01 Q12HR [facility] Magnesium Hydroxide 30 ml 12/17/24 14:52 Magnesium Hydroxide Susp 30 Ml Udc PO BID PRN Constipation Metoclopramide HCl 10 mg 12/17/24 08:20 Metoclopramide Hcl Inj 10 Mg/2 Ml Vial IV PUSH Q6H PRN Nausea And Vomiting Metronidazole 500 mg 12/22/24 22:00 Metronidazole 500 Mg Tablet PO 12/24/24 22:01 Q8HR [facility] Midodrine 5 mg 12/18/24 09:00 12/22/24 13:00 Midodrine Hcl 2.5 Mg Tablet PO Not Given TID [facility] Midodrine 10 mg 12/18/24 09:00 12/22/24 13:00 Midodrine Hcl 10 Mg Tablet PO Not Given TID [facility] Morphine Sulfate 2 mg 12/17/24 06:29 12/21/24 05:28 Morphine Sulfate (*Crx) 2 Mg/Ml Inj IV PUSH 2 mg Q2H PRN Administration Pain Rated 7-10 Naloxone HCl 0.1 mg 12/17/24 14:47 Naloxone Hcl 0.4 Mg/Ml Vial IV PUSH Q2M PRN Opiate Reversal Nicotine 1 patch 12/18/24 16:25 12/22/24 09:00 Nicotine (*Pbkc) 14 Mg Patch TRANSDERM Not Given DAILY [facility] Ondansetron HCl 4 mg 12/17/24 14:47 12/22/24 08:33 Ondansetron Inj 4 Mg/2 Ml Vial IV PUSH 4 mg Q4H PRN Administration Nausea And Vomiting Oxycodone/Acetaminophen 1 tab 12/17/24 08:19 12/20/24 09:24 Oxycodone/Acetaminophen (*Crx) 10-325 Mg Tablet PO 1 tab Q4H PRN Administration Pain Rated 7-10 Pantoprazole Sodium 40 mg 12/17/24 17:00 12/22/24 09:56 Pantoprazole 40 Mg Tablet PO Not Given BID [facility] Polyethylene Glycol 17 gm 12/18/24 09:00 12/22/24 09:00 Polyethylene Glycol 3350 17 Gm Powd.Pack PO Not Given QAM [facility] Senna/Docusate Sodium 2 tab 12/17/24 17:00 12/22/24 09:00 Senna/Docusate Sodium Tablet PO Not Given BID [facility] Radiology Results: ITS Impressions Hip/Pelvis X-Ray 12/17/24 06:12 Impression: Acute comminuted intertrochanteric fracture of the proximal right femur, as detailed above. Chest CT 12/17/24 09:39 Impression: Right upper lobe consolidation morphologically is most compatible with pneumonia. Hyperdense material within the pneumonia raises possibility of aspiration. Questionable areas of cavitation/necrosis within the pneumonia versus changes related to underlying severe diffuse emphysema. Follow-up to radiographic resolution is advised. Mediastinal and right hilar lymphadenopathy, presumably reactive. Modified Barium Swallow 12/19/24 15:07 IMPRESSION: Pharyngeal dysphagia with laryngeal penetration and aspiration after the swallow. Please correlate with speech pathologist findings and specific feeding recommendations. Chest X-Ray 12/22/24 09:08 IMPRESSION: Right upper lobe mass unchanged. Labs Labs: Laboratory Results - last 24 hr 12/21/24 12/21/24 12/22/24 18:30 21:02 00:04 WBC RBC Hgb Hct MCV MCH MCHC RDW Plt Count MPV Immature Gran % (Auto) Neut % (Auto) Lymph % (Auto) [place] % (Auto) Eos % (Auto) Baso % (Auto) Lymph # (Auto) [place] # (Auto) Eos # (Auto) Baso # (Auto) Abs Immat Gran (auto) Absolute Neuts (auto) Absolute Nucleated RBC Nucleated RBC % Sodium Potassium Chloride Carbon Dioxide Anion Gap BUN Creatinine Estim Creat Clear Calc Estimated GFR Glucose POC Capillary Glucose 103 99 103 Calcium Total Bilirubin AST ALT Alkaline Phosphatase Total Protein Albumin Vancomycin Trough 12/22/24 12/22/24 12/22/24 03:05 06:01 13:21 WBC 4.7 RBC 3.03 L Hgb 9.6 L Hct 30.1 L MCV 99.3 MCH 31.7 MCHC 31.9 L RDW 14.2 Plt Count 174 MPV 10.0 Immature Gran % (Auto) 0.4 Neut % (Auto) 78.5 H Lymph % (Auto) 9.3 L [place] % (Auto) 10.6 H Eos % (Auto) 0.8 Baso % (Auto) 0.4 Lymph # (Auto) 0.44 L [place] # (Auto) 0.5 Eos # (Auto) 0.0 Baso # (Auto) 0.0 Abs Immat Gran (auto) 0.02 Absolute Neuts (auto) 3.7 Absolute Nucleated RBC 0.000 Nucleated RBC % 0.0 Sodium 136 L Potassium 3.6 Chloride 102 Carbon Dioxide 28 Anion Gap 6 BUN 8 L Creatinine 0.49 L Estim Creat Clear Calc 75 Estimated GFR > 60 Glucose 106 POC Capillary Glucose 95 88 Calcium 8.3 L Total Bilirubin 0.7 AST 21 ALT 11 Alkaline Phosphatase 98 Total Protein 6.0 L Albumin 3.0 L Vancomycin Trough 9.4 L
[2024-12-22 18:00] LABS: Glucose Point of Care 82 mg/dl (65-105)
[2024-12-22 23:36] LABS: Glucose Point of Care 85 mg/dl (65-105)
[2024-12-23] MEDS: IPRATROPIUM 0.5 MG/ALBUTEROL SULFATE 2.5 MG AMPUL.NEB 3 ML INHALATION (02:12)
--- NOTE | 2024-12-23 02:13 | PCRCNOTE ---
Pt's 2am tx was triaged due acuity of ED responsibilities.
[2024-12-23] MEDS: MORPHINE SULFATE (*CRX) 2 MG/ML INJ IV PUSH ×4 (05:31→12:24)
[2024-12-23 06:00] VITALS: BP 123/82; PULSE 86; RESP 16; TEMP 36.3; O2SAT 97
[2024-12-23] MEDS: LORazepam INJ (*CRX) 2 MG/ML VIAL 0.5 MG IV PUSH (07:48)
--- NOTE | 2024-12-23 08:18 | P.PNIM_ITS ---
Progress Note: A&P Assessment and Plan (1) Closed intertrochanteric fracture of right femur: Code(s): S72.141A - Displaced intertrochanteric fracture of right femur, initial encounter for closed fracture Status: Acute Assessment and Plan: Ortho consult noted. Will start physical therapy. (2) Fall from ground level: Code(s): W18.30XA - Fall on same level, unspecified, initial encounter Status: Acute Assessment and Plan: Physical therapy and pain management (3) Lung nodule: Code(s): R91.1 - Solitary pulmonary nodule Status: Acute Assessment and Plan: Out Patient follow up and monitoring (4) Necrotizing pneumonia: Code(s): J85.0 - Gangrene and necrosis of lung Status: Acute Assessment and Plan: Continue IV antibiotics (5) Severe malnutrition: Code(s): E43 - Unspecified severe protein-calorie malnutrition Status: Acute Assessment and Plan: GI evaluation and possible PEG placement Plan Right hip fracture Patient had a fall and sustained severe right hip pain Hip pelvis x-ray showed acute comminuted intertrochanteric fracture of the proximal right femur Optimize pain management Consult orthopedic surgeon Status post Right Hip Intra-Medullary Shiv Fixation of IT Fracture 12/17 Start PT OT, cleared by orthopedic surgeon Necrotizing pneumonia Lung nodule was found on x-ray initially. Chest x-ray shows 6.6 cm mass versus consolidation right upper lobe medially. CT showed right upper lobe consolidation morphologically is most compatible with pneumonia. Hyperdense material within the pneumonia raises possibility of aspiration. 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 for evaluation treatment Dehydration Labs reviewed, elevated BUN creatinine ratio 30/0.97 Received fluid for resuscitation Dysphagia Tube feeding was provided Indwelling folic catheter, urinary retention Consult urologist for evaluation treatment Complicated UTI due to indwelling catheter UA shows pyuria, urine culture grows Providencia rettger and Alcaligenes faecalis Switch from Ancef to cefepime IV Severe malnutrition Consult dietitian Patient is at end stage of life, patient family request to transfer patient to comfort care today and discontinue any medical management except medications for comfort only. Family also request to speak with hospice team tomorrow Will transfer patient to comfort care per patient family requirement 12/23: continue comfort care meds only Subjective Date/time seen: 12/23/24 08:18 Interval history: patient was still unresponsive to verbal commands, but no obvious distress. Exam Narrative: GENERAL: Ill-appearing,. Severe malnutrition - EYES: Anicteric. - HENT: Dry mucous membranes. Heart he aring - LUNGS, no wheezing, rhonchi, or rales. - CARDIOVASCULAR: Regular rate and rhyth m. No murmur. No JVD. - ABDOMEN: Soft, non-tender and non-dist ended. No palpable masses. - EXTREMITIES: No edema. Peripheral puls es 2+. Restricted movement of right hip because of pain - NEUROLOGIC: No focal neurological defi cits. CN II-XII grossly intact. - PSYCHIATRIC: Unresponsive and not elsa ented x 3. - SKIN: Surgical wound is dry and clean - LYMPH: No cervical lymphadenopathy. Objective Data Vital Signs Vital Signs: Vital Signs - 24 hr 12/22/24 14:00 12/22/24 20:12 12/22/24 20:26 Temperature 97.5 F L Pulse Rate 81 82 82 Respiratory Rate 16 16 16 Blood Pressure 97/69 L Pulse Oximetry 90 12/22/24 22:00 12/23/24 06:00 Temperature 97.3 F L 97.3 F L Pulse Rate 97 86 Respiratory Rate 16 16 Blood Pressure 111/67 123/82 Pulse Oximetry 95 97 Intake/Output Intake/Output: Intake & Output 12/20/24 12/21/24 12/22/24 12/23/24 23:59 23:59 23:59 23:59 Intake Total 2110 2340 500 Output Total 650 3300 2200 500 Balance 1460 -960 -1700 -500 Meds/Results Medications: Active Medications Generic Name Dose Route Start Last Admin Trade Name Freq PRN Reason Stop Dose Admin Acetaminophen 500 mg 12/17/24 14:52 12/18/24 08:12 Acetaminophen 500 Mg Tablet PO 500 mg Q6H PRN Administration Pain Rated 1-3 Hydrocodone Bitart/Acetaminophen 1 tab 12/17/24 14:52 12/20/24 05:24 Hydrocodone/Acetaminophen (*Crx) 5-325 Mg Tablet PO 1 tab Q4H PRN Administration Pain Rated 4-6 Albuterol/Ipratropium 3 ml 12/18/24 20:00 12/23/24 02:12 Ipratropium 0.5 Mg/Albuterol Sulfate 2.5 Mg Ampul.Neb 3 Ml INHALATION 3 ml Q6HRT [facility] Administration Amoxicillin/Clavulanate Potassium 880 mg 12/25/24 09:00 Amoxicillin/Clavulanate K Susp 400-57 Mg/5 Ml 5 Ml Ud PO 01/07/25 21:01 Q12HR [facility] Aspirin 81 mg 12/17/24 21:00 12/23/24 00:14 Aspirin 81 Mg Enteric Tablet PO Not Given Q12HR [facility] Dextrose 12.5 gm 12/19/24 19:34 Dextrose 50% 25 Gm/50 Ml Syringe IV PUSH PRN PRN Hypoglycemia Protocol Enoxaparin Sodium 40 mg 12/20/24 09:00 12/22/24 09:00 Enoxaparin 40 Mg/0.4 Ml Syringe SUB-Q Not Given DAILY [facility] Famotidine 20 mg 12/17/24 21:00 12/23/24 00:15 Famotidine 20 Mg Tablet PO Not Given Q12HR [facility] Ferrous Sulfate 325 mg 12/18/24 12:00 12/22/24 13:30 Ferrous Sulfate [address] BY MOUTH Not Given DAILY@1200 [facility] Glucagon 1 mg 12/19/24 19:34 Glucagon For Inj 1 Mg Vial IM PRN PRN Hypoglycemia Protocol Glucose 15 gm 12/19/24 19:34 Glucose Oral Gel 15 Gm Of Glucse In 37.5 Gm Tube PO PRN PRN Hypoglycemia Protocol Guaifenesin 1,200 mg 12/22/24 10:55 12/23/24 00:15 Guaifenesin 12 Hr 600 Mg Tabcr PO Not Given Q12HR [facility] Hydromorphone HCl 1 mg 12/17/24 15:01 12/22/24 13:47 Hydromorphone Hcl Inj (*Crx) 2 Mg/Ml Vial IV PUSH 1 mg Q2H PRN Administration Breakthrough Pain Rated 7-10 or NPO Hydromorphone HCl 0.5 mg 12/17/24 15:02 12/22/24 02:15 Hydromorphone Hcl Inj (*Crx) 2 Mg/Ml Vial IV PUSH 0.5 mg Q2H PRN Administration Breakthrough Pain Rated 4-6 or NPO Hydroxyzine Pamoate 50 mg 12/17/24 14:47 Hydroxyzine Pamoate 25 Mg Capsule PO Q4H PRN Itching Cefepime HCl 2 gm in 50 mls @ 100 mls/hr 12/18/24 11:00 12/23/24 00:15 Maxipime 2 Gm/Ns 50 Ml IVPB 12/24/24 21:29 Not Given Q12HR [facility] Potassium Chloride 40 meq/ 1,020 mls @ 60 mls/hr 12/19/24 13:00 12/22/24 19:27 Dextrose/Lactated Ringer's IV CONT Not Given .Q17H [facility] Dextrose 1,000 mls @ 100 mls/hr 12/19/24 19:34 Dextrose 5% 1,000 Ml IVPB PRN PRN Hypoglycemia Protocol Linezolid 600 mg 12/22/24 21:00 12/23/24 00:15 Linezolid 600 Mg Tablet PO 12/24/24 21:01 Not Given Q12HR [facility] Lorazepam 0.5 mg 12/22/24 15:40 12/23/24 07:48 Lorazepam Inj (*Crx) 2 Mg/Ml Vial IV PUSH 0.5 mg Q6H PRN Administration Anxiety Magnesium Hydroxide 30 ml 12/17/24 14:52 Magnesium Hydroxide Susp 30 Ml Udc PO BID PRN Constipation Metoclopramide HCl 10 mg 12/17/24 08:20 Metoclopramide Hcl Inj 10 Mg/2 Ml Vial IV PUSH Q6H PRN Nausea And Vomiting Metronidazole 500 mg 12/22/24 22:00 12/23/24 05:26 Metronidazole 500 Mg Tablet PO 12/24/24 22:01 Not Given Q8HR [facility] Midodrine 5 mg 12/18/24 09:00 12/22/24 17:19 Midodrine Hcl 2.5 Mg Tablet PO Not Given TID [facility] Midodrine 10 mg 12/18/24 09:00 12/22/24 17:19 Midodrine Hcl 10 Mg Tablet PO Not Given TID [facility] Morphine Sulfate 2 mg 12/17/24 06:29 12/23/24 07:47 Morphine Sulfate (*Crx) 2 Mg/Ml Inj IV PUSH 2 mg Q2H PRN Administration Pain Rated 7-10 Naloxone HCl 0.1 mg 12/17/24 14:47 Naloxone Hcl 0.4 Mg/Ml Vial IV PUSH Q2M PRN Opiate Reversal Nicotine 1 patch 12/18/24 16:25 12/22/24 09:00 Nicotine (*Pbkc) 14 Mg Patch TRANSDERM Not Given DAILY [facility] Ondansetron HCl 4 mg 12/17/24 14:47 12/22/24 08:33 Ondansetron Inj 4 Mg/2 Ml Vial IV PUSH 4 mg Q4H PRN Administration Nausea And Vomiting Oxycodone/Acetaminophen 1 tab 12/17/24 08:19 12/20/24 09:24 Oxycodone/Acetaminophen (*Crx) 10-325 Mg Tablet PO 1 tab Q4H PRN Administration Pain Rated 7-10 Pantoprazole Sodium 40 mg 12/17/24 17:00 12/22/24 17:19 Pantoprazole 40 Mg Tablet PO Not Given BID [facility] Polyethylene Glycol 17 gm 12/18/24 09:00 12/22/24 09:00 Polyethylene Glycol 3350 17 Gm Powd.Pack PO Not Given QAM [facility] Senna/Docusate Sodium 2 tab 12/17/24 17:00 12/22/24 17:19 Senna/Docusate Sodium Tablet PO Not Given BID [facility] Radiology Results: ITS Impressions Hip/Pelvis X-Ray 12/17/24 06:12 Impression: Acute comminuted intertrochanteric fracture of the proximal right femur, as detailed above. Chest CT 12/17/24 09:39 Impression: Right upper lobe consolidation morphologically is most compatible with pneumonia. Hyperdense material within the pneumonia raises possibility of aspiration. Questionable areas of cavitation/necrosis within the pneumonia versus changes related to underlying severe diffuse emphysema. Follow-up to radiographic resolution is advised. Mediastinal and right hilar lymphadenopathy, presumably reactive. Modified Barium Swallow 12/19/24 15:07 IMPRESSION: Pharyngeal dysphagia with laryngeal penetration and aspiration after the swallow. Please correlate with speech pathologist findings and specific feeding recommendations. Chest X-Ray 12/22/24 09:08 IMPRESSION: Right upper lobe mass unchanged. Labs Labs: Laboratory Results - last 24 hr 12/22/24 12/22/24 12/22/24 13:21 17:55 22:05 POC Capillary Glucose 88 82 85
--- NOTE | 2024-12-23 08:18 | PM.DS ---
DS: Admitting Diagnosis Discharge Date 12/23 Admitting Diagnosis (1) Closed intertrochanteric fracture of right femur: Code(s): S72.141A - Displaced intertrochanteric fracture of right femur, initial encounter for closed fracture Status: Acute Assessment and Plan: Ortho consult noted. Will start physical therapy. (2) Fall from ground level: Code(s): W18.30XA - Fall on same level, unspecified, initial encounter Status: Acute Assessment and Plan: Physical therapy and pain management (3) Lung nodule: Code(s): R91.1 - Solitary pulmonary nodule Status: Acute Assessment and Plan: Out Patient follow up and monitoring (4) Necrotizing pneumonia: Code(s): J85.0 - Gangrene and necrosis of lung Status: Acute Assessment and Plan: Continue IV antibiotics (5) Severe malnutrition: Code(s): E43 - Unspecified severe protein-calorie malnutrition Status: Acute Assessment and Plan: GI evaluation and possible PEG placement DS: Discharge Diagnosis Discharge Diagnosis (1) Closed intertrochanteric fracture of right femur: Code(s): S72.141A - Displaced intertrochanteric fracture of right femur, initial encounter for closed fracture Status: Acute Assessment and Plan: Ortho consult noted. Will start physical therapy. (2) Fall from ground level: Code(s): W18.30XA - Fall on same level, unspecified, initial encounter Status: Acute Assessment and Plan: Physical therapy and pain management (3) Lung nodule: Code(s): R91.1 - Solitary pulmonary nodule Status: Acute Assessment and Plan: Out Patient follow up and monitoring (4) Necrotizing pneumonia: Code(s): J85.0 - Gangrene and necrosis of lung Status: Acute Assessment and Plan: Continue IV antibiotics (5) Severe malnutrition: Code(s): E43 - Unspecified severe protein-calorie malnutrition Status: Acute Assessment and Plan: GI evaluation and possible PEG placement DS: Summary Hospital Course Hospital Course: Per H&P: Patient is a 74-year-old male who is at home with his partner fell yesterday landing onto his right hip. EMS was called he was taken by ambulance to the [facility] Emergency Room early this morning. The patient is here today with his younger brother Karlie. The patient is deaf and cannot hear. I communicated with the patient and with his brother Karlie who is a great historian and very helpful with regard to providing some background with regard to the patient's medical history as well as social situation. I communicated with the patient through a clipboard in some writing. Patient reports pain nowhere else for access into the right hip. He normally would ambulate with a cane. He does have a walker she does not walker. Patient appears to be cachectic does not have much appetite. He has lost about 30-35 lb over the past 12 months. He does have a history of a prostate issue any presents to the emergency room with a urinary catheter that has been in place since August of this year. He has very poor follow-up with a primary care provider or a physician of any type. Apparently had a prostate issue but 2 years ago and had this catheter placed in [facility] on August this year after being admitted with a GI bleed. The catheter has been in place since that time. The following med issues have been addressed during hospitalization Right hip fracture Patient had a fall and sustained severe right hip pain Hip pelvis x-ray showed acute comminuted intertrochanteric fracture of the proximal right femur Optimize pain management Consult orthopedic surgeon Status post Right Hip Intra-Medullary Shiv Fixation of IT Fracture 12/17 Start PT OT, cleared by orthopedic surgeon Necrotizing pneumonia Lung nodule was found on x-ray initially. Chest x-ray shows 6.6 cm mass versus consolidation right upper lobe medially. CT showed right upper lobe consolidation morphologically is most compatible with pneumonia. Hyperdense material within the pneumonia raises possibility of aspiration. Questionable areas of cavitation/necrosis within the pneumonia versus changes related to underlying severe diffuse emphysema Patient is on cefepime, start vancomycin IV Consult analytical research program manager for evaluation treatment Dehydration Labs reviewed, elevated BUN creatinine ratio 30/0.97 Received fluid for resuscitation Dysphagia Tube feeding was provided Indwelling folic catheter, urinary retention Consult urologist for evaluation treatment Complicated UTI due to indwelling catheter UA shows pyuria, urine culture grows Providencia rettger and Alcaligenes faecalis Switch from Ancef to cefepime IV Severe malnutrition Consult dietitian Patient condition deteriorates your received aggressive medical management. Patient is at end stage of life, patient family request to transfer patient to comfort care today and discontinue any medical management except medications for comfort only. Family also request to speak with hospice team tomorrow Will transfer patient to comfort care per patient family requirement 12/23: continue comfort care meds only, and dc to hospice team Time Spent with Patient Time attestation: Total time spent providing and/or coordinating discharge services: Exam Narrative: GENERAL: Ill-appearing,. Severe malnutrition - EYES: Anicteric. - HENT: Dry mucous membranes. Heart hearing - LUNGS, no wheezing, rhonchi, or rales. - CARDIOVASCULAR: Regular rate and rhythm. No murmur. No JVD. - ABDOMEN: Soft, non-tender and non-distended. No palpable masses. - EXTREMITIES: No edema. Peripheral pulses 2+. Restricted movement of right hip because of pain - NEUROLOGIC: No focal neurological deficits. CN II-XII grossly intact. - PSYCHIATRIC: Unresponsive and not oriented x 3. - SKIN: Surgical wound is dry and clean - LYMPH: No cervical lymphadenopathy. DS: Data Data Completed and Pending Labs on day of discharge: Labs from last 24 hours 12/23/24 12/22/24 12/22/24 06:23 22:05 17:55 POC Capillary Glucose 85 82 [id number] Pending Alpha-1-AT Phenotype Pending 12/22/24 13:21 POC Capillary Glucose 88 Kmugx-7-Gvbmxcunizq Alpha-1-AT Phenotype Discharge Plan Discharge Attending physician on discharge: Greg Rasmussen Consulting providers: Jayson Hirsch; Jennie Bucio; Koby James; Melody Tavera; Clay Hernandez; Dez Langley; Greg Rasmussen; Jack John; Saeed Jain; Kevon Wren; Mikhail Elizabeth; Venus Kinney; Kolton Barboza; Antonio Lozada Discharging Clinician: Greg Rasmussen Patient Disposition: Hospice - Medical Facility Activity: as tolerated Diet: as tolerated Patient Language: Greenlandic Stand Alone Forms: General Discharge Information Discharge Medications: No Action No Home Medications Date of admission: 12/17/24 14:53 Primary Care Provider: PHYSICIAN NOT ON STAFF,NONSTAFF Admitting Provider: Josefina Terrazas Attending physician on admission: Greg Rasmussen Condition: Stable
[2024-12-23 11:37] LABS: Glucose Point of Care 84 mg/dl (65-105)
[2024-12-23 12:27] LABS: NIL 0.01 IU/mL; Quantiferon TB Plus, 1T NEGATIVE (NEGATIVE)
[2024-12-23 18:43] LABS: Glucose Point of Care 93 mg/dl (65-105)
[2024-12-24 02:34] LABS: Alpha-1-Antitrypsin, QN 218 mg/dL (83-199)
== END 2024-12-23 13:16 | disposition hospice, inpatient (51) | DRG 480 ==
LOC: ANHED 06:45 → ANH3MEDSUR 07:22
PROVIDERS: Internal Medicine; Internal Medicine Critical Care Medicine; Internal Medicine Pulmonary Disease; Orthopaedic Surgery; Admitting Provider General Practice; Emergency Provider Emergency Medicine; Visit Provider Hospitalist
PROC: 0QS636Z Reposition Right Upper Femur with Intramedullary Internal Fixation Device, Percutaneous Approach (ICD-10-PCS; CPT 27245; principal; 2024-12-17 14:00)
DX: S72.141A Displaced intertrochanteric fracture of right femur, initial encounter for closed fracture (principal); E43 Unspecified severe protein-calorie malnutrition; J85.0 Gangrene and necrosis of lung; N39.0 Urinary tract infection, site not specified; B96.89 Other specified bacterial agents as the cause of diseases classified elsewhere; W18.30XA Fall on same level, unspecified, initial encounter; E86.0 Dehydration; F17.210 Nicotine dependence, cigarettes, uncomplicated; J43.8 Other emphysema; R91.1 Solitary pulmonary nodule; R33.9 Retention of urine, unspecified; R13.10 Dysphagia, unspecified; Z96.0 Presence of urogenital implants; Z91.199 Patient's noncompliance with other medical treatment and regimen due to unspecified reason; Z51.5 Encounter for palliative care; Z66 Do not resuscitate
CPT/HCPCS: 36415; 71045; 71260; 73502; 80048; 80053; 80202; 81001; 82103; 82104; 82565; 82948; 83735; 85025; 85610; 85730; 86480; 87086; 87186; 87389; 87641; 92526; 92611; 93005; 94640; 96374; 96375; 96376; 97110; 97161; 97166; 97530; 97535; 99199; 99285; A9270; C1713; C1769; G0378; J0690; J0692; J1171; J1650; J2004; J2060; J2270; J2405; J2704; J3010; J3370; J3480; J7030; J7040; J7120; J7121; Q9967

== ENCOUNTER 2024-12-23 13:17 | HOS | payer OTHER, MEDICARE, SELFPAY ==
[2024-12-23] MEDS: MORPHINE SULFATE (*CRX) 2 MG/ML INJ 4 MG IV PUSH ×2 (14:35→16:39)
--- OUTSIDE RECORDS SUMMARY | 2024-12-23 14:35 | XMS_ITS | Encounter Summary ---
Author Organization [facility] Address [facility] [place] [address] Care Team Providers Care Whip Sawyer Name Role Phone Unavailable Primary Care Provider Unavailabl e Reason for Visit * Reason Onset Date Comments Appointment 12/23/2024 Encounter Details Date Type Department Care Team (Late st Contact Info) Description 12/23/2024 Telephone [facility] - Pulmonology [id number] [place] [id number] [place] [address] [address] Appointment Social History Tobacco Use Types Packs/Day Years Used Date Smoking Tobacco: Every Day Cigarettes Smokeless Tobacco: Never Alcohol Use Standard Drinks/Week Comments Never 0 (1 standard drink = 0.6 oz pur e alcohol) AUDIT-C Answer Date Recorded Q1: How often do you have a drink containing alcohol? Never 09/22/2024 Q2: How many drinks containi ng alcohol do you have on a typical day when you are drinking? Patient does not drink Q3: How often do you have si x or more drinks on one occasion? Never 09/22/2024 Overall Financial Resource Strain (CARDIA) Answe r Date Recorded How hard is it for you to pa y for the very basics like food, housing, medical care, and heating? Not hard at all 09/22/2024 [facility] - Occupational Stress Questionnaire Answer Date Recorded Do you feel stress - tense, restless, nervous, or anxious, or unable to sleep at night because your mind is troubled all the time - these days? Only a little 09/22/2024 Hunger Vital Sign Answer Date Recorded Within the past 12 months, y ou worried that your food would run out before you got the money to buy more. Never true 09/22/19 25 Within the past 12 months, t he food you bought just didn't last and you didn't have money to get more. Never true 09/22/2024 PRAPARE - Transportation Answer Date Re corded In the past 12 months, has l ack of transportation kept you from medical appointments or from getting medications? No 08/28 In the past 12 months, has l ack of transportation kept you from meetings, work, or from getting things needed for daily living? No 09/22/2024 Housing Stability Vital Sign Answer Markus e Recorded In the last 12 months, was t here a time when you were not able to pay the mortgage or rent on time? No 09/22/2024 In the past 12 months, how m any times have you moved where you were living? 0 09/22/2024 At any time in the past 12 m [facility], were you homeless or living in a fpc (including now)? 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 Answer Date of Assessment Author Yes 09/22/2024 6:01 PM Tianna Nesbitt RN * Is person blind or have serious difficulty seeing? Answer Date of Assessment Author No 09/22/2024 6:01 PM Tianna Nesbitt RN * Does person have serious difficulty walking/climbing stairs? Answer Date of Assessment Author Yes 09/22/2024 6:01 PM Tianna Nesbitt RN * Does person have difficulty dressing/bathing? Answer Date of Assessment Author No 09/22/2024 6:01 PM Tianna Nesbitt RN * Does person have difficulty doing errands alone? Answer Date of Assessment Author No 09/22/2024 6:01 PM Tianna Nesbitt RN documented as of this encounter Mental Status * Does person have difficulty concentrating/remembering/making decisions? Answer Entry Date Author No 09/22/2024 6:01 PM MISCELLANEOUS MACHINE OPERATOR Tianna Quan RN documented in this encounter Miscellaneous Notes * Telephone Encounter - Ruchi Borrego LPN - 12/23/2024 10:35 AM CDT LVM: elevators currently unavailable, no ETA at this time. Pt may have increased difficulty coming to OV if only the stairs are available- hosp f/u for IP dx: acute hypoxia. Previously ordered testing has also not been completed. Pt will need assistance setting up appt forPET scan and scheduling OV for f/u. documented in this encounter Plan of Treatment Upcoming Encounters Date Type Department Care Team (Late st Contact Info) Description 12/30/2024 2:00 PM CDT Clinical Support [facility] - Urology [address], [address] [place] [address] [place] [address] [place] [address] documented as of this encounter Visit Diagnoses Not on filedocumented in this encounter
--- OUTSIDE RECORDS SUMMARY | 2024-12-23 14:35 | XMS_ITS | Clinical Summary ---
Author Organization [facility] Address [address] [place] [address] Care Team Providers Care Liquid Hydrogen Plant Operator Name Role Phone Unavailable Primary Care Provider Unavailabl e Source Comments [facility],non-owned Affiliates and Associated Physician Practices is amultiple site organization consisting of ambulatory clinics and hospital sitesin [place], [place], [place] and [place]. This disclosure is being madepursuant to the Care Everywhere program and may not contain all information available regarding this patient. Last updated 18.[facility] Allergies Active Allergy Reactions Criticality Noted Date Comments Orasone Shortness of Breath High 09/22/2024 Medications * Be aware that medications may not be up to date on this document. Alwaysverify current medications with the patient. multivitamin daily tablet Take 1 (one) tablet by mouth daily with food Active umeclidinium (Incruse Ellipta) 62.5 MCG/ACT inhaler Inhale 1 (one) puff by mouth once daily 30 Each 1 09/26/2024 3:56 PM LABOR RELATIONS CONSULTANT 5 Active ferrous sulfate 325 (65 FE) MG tablet Take 1 (one) tablet by mouth once daily after lunch 30 tablet 3 09/26/2024 3:56 PM LABOR RELATIONS CONSULTANT 5 Active midodrine (Proamatine) 5 MG tablet Take 3 (three) tablets by mouth 3 times daily before meals 90 tablet 3 09/26/2024 3:56 PM LABOR RELATIONS CONSULTANT 5 Active pantoprazole EC (Protonix) 40 MG tablet Take 1 (one) tablet by mouth 2 times daily, before breakfast and supper 60 tablet 3 09/26/2024 3:56 PM LABOR RELATIONS CONSULTANT 5 Active tamsulosin (Flomax) 0.4 MG capsule Take 1 (one) capsule by mouth once daily At the same time every day after a meal. 30 capsule 1 5 Active Active Problems Problem Noted Date Diagnosed Date Gastrointestinal hemorrhage, unspecified gastrointestinal hemorrhage type 09/21/2024 Encounters Date Type Department Care Team Description 12/23/2024 Telephone [facility] Pulmonology [address] [place] [address] Vamsi Bergman DO Appointment 12/02/2024 Travel 12/01/2024 Telephone [facility] Urology [address] , [address] [place] [id number] Bonny Mason MD [facility] 09/26/2024 Orders Only [facility] Pulmonology [id number] [place] [address] [address] [place] [address] Vamsi Bergman DO Left lower lobe pulmonary nodule 09/24/2024 11:30 AM LABOR RELATIONS CONSULTANT - 09/24/2024 12:00 PM LABOR RELATIONS CONSULTANT Surgery [facility] [id number] [place] [address] Luis Armando Gentile MD ESOPHAGOGASTRODUODENOSCOPY (EGD) DIAGNOSTIC 09/24/2024 11:10 AM LABOR RELATIONS CONSULTANT Anesthesia Event [facility] [address] [place] [address] Brock Mercedes MD Maestas, Karolyn E, DOCUMENTATION COORDINATOR-MAINTENANCE PARTS TECHNICIAN 09/22/2024 5:38 PM LABOR RELATIONS CONSULTANT - 09/26/2024 7:04 PM LABOR RELATIONS CONSULTANT Hospital Encounter [facility] 2N TELE/ONCOLOGY [id number] [place] [address] Pj Hou MD Arekooti, Hasita, MD Kamat, Anjali, MD Hospitalist Discharge Disposition: Home or Self Care from Last 3 Months Social History Tobacco Use Types Packs/Day Years Used Date Smoking Tobacco: Every Day Cigarettes Smokeless Tobacco: Never Tobacco Cessation:Ready to Q uit: Yes; Counseling Given: Yes Alcohol Use Standard Drinks/Week Comments Never 0 [...] and heating? Not hard at all 09/22/2024 [facility] - Occupational Stress [...] any time in the past 12 m [facility], were you homeless or living in a chcf (including now)? No 09/22/2024 Sex and Gender Information Value Date Recorded Sex Assigned at Not on file Legal Sex Male 7:29 PM LABOR RELATIONS CONSULTANT Gender Identity Not on file Sexual Orientation Not on file Last Filed Vital Signs Vital Sign Reading Time Taken Comments Blood Pressure 97/62 09/26/2024 11:26 AM LABOR RELATIONS CONSULTANT Pulse 93 09/26/2024 11:26 AM LABOR RELATIONS CONSULTANT Temperature 36.4 C (97.5 F) 09/26/2024 11:26 AM LABOR RELATIONS CONSULTANT Respiratory Rate 18 09/26/2024 11:26 AM LABOR RELATIONS CONSULTANT Oxygen Saturation 96% 09/26/2024 11:26 AM LABOR RELATIONS CONSULTANT Inhaled Oxygen Concentration 21% 09/26/2024 1 :23 PM LABOR RELATIONS CONSULTANT Weight 56.7 kg (125 lb) 09/22/2024 5:51 PM LABOR RELATIONS CONSULTANT Height 170.2 cm (5' 7 ) 09/22/2024 5:51 PM LABOR RELATIONS CONSULTANT Body Mass Index 19.58 09/22/2024 5:51 PM LABOR RELATIONS CONSULTANT Plan of Treatment Upcoming Encounters Date Type Department Care Team (Late st Contact Info) Description 12/30/2024 2:00 PM CDT Clinical Support [facility] - Urology [address], [address] [place] [address] [place] [address] [place] [address] Health Maintenance Due Date Last Done Comments COLOGUARD (AGES 45-75) - COL ON CA SCREENING 1950 COLON MONITORING 1950 COLONOSCOPY - COLON CA SCREENING 1950 CT COLONOGRAPHY - COLON CA SCREENING 1950 Colorectal Cancer Screening 1950 FIT - COLON CA SCREENING 1950 FLEX SIG - COLON CA SCREENING 1950 LIPID TESTING 1950 MEDICARE AWV 12 MONTHS 1950 HEPATITIS C SCREENING 09/04/1969 DTAP/TDAP/TD VACCINES (1 - Tdap) 1970 PNEUMOCOCCAL VACCINE 50+ (1 of 2 - PCV) 1970 ZOSTER VACCINE (1 of 2) 2001 Respiratory Syncytial Virus (RSV) Vaccine Pt: or over 60 yrs (1 - Risk 60-74 years 1-dose series) 2011 AAA SCREENING 2016 COVID-19 VACCINE (1 - 2023-2 5 season) 2024 DEPRESSION SCREENING 08/27/2024 INFLUENZA VACCINE (Season Ended) 2025 06/23/2019, 06/03/2014 HEPATITIS B VACCINE Aged Out No longe r eligible based on patient's age to complete this topic HIB VACCINE Aged Out No longer eligi ble based on patient's age to complete this topic HPV VACCINE Aged Out No longer eligi ble based on patient's age to complete this topic MENINGOCOCCAL (Group B) VACCINE SHARED DECISION-MAKING Aged Out No longer eligible based on patient's age to complete this topic MENINGOCOCCAL GROUPS A/C/Y/W VACCINE Aged Out No longer eligible b ased on patient's age to complete this topic Procedures Procedure Name Priority Date/Time Associated Diagnosis Comments CARDIAC RHYTHM STRIP ORDER 09/29/2024 10:34 PM LABOR RELATIONS CONSULTANT GLUCOSE - POINT OF CARE Routine 09/26/2024 11:31 AM LABOR RELATIONS CONSULTANT GLUCOSE - POINT OF CARE Routine 09/26/2024 7:59 AM LABOR RELATIONS CONSULTANT GLUCOSE - POINT OF CARE Routine 09/25/2024 5:48 PM LABOR RELATIONS CONSULTANT HOME O2 EVAL (DESATURATION SCREEN) Routine 09/25/2024 12:42 PM LABOR RELATIONS CONSULTANT GLUCOSE - POINT OF CARE Routine 09/25/2024 12:41 PM LABOR RELATIONS CONSULTANT BASIC METABOLIC PANEL (CALCIUM TOTAL) AM Draw 09/25/2024 3:05 AM LABOR RELATIONS CONSULTANT CBC W/O DIFFERENTIAL AM Draw 09/25/2024 3:05 AM LABOR RELATIONS CONSULTANT HELICOBACTER PYLORI UREASE (STL) STAT 09/24/2024 11:36 AM LABOR RELATIONS CONSULTANT Diagnosis deferred [place] ED EGD FLEX TRANSORAL DX 09/24/2024 11:30 AM LABOR RELATIONS CONSULTANT EGD Routine 09/24/2024 6:51 AM LABOR RELATIONS CONSULTANT CBC W/O DIFFERENTIAL AM Draw 09/24/2024 3:45 AM LABOR RELATIONS CONSULTANT from Last 3 Months Results * CARDIAC RHYTHM STRIP ORDER (09/29/2024 10:34 PM LABOR RELATIONS CONSULTANT) Narrative 09/29/2024 10:34 PM LABOR RELATIONS CONSULTANT Ordered by an unspecified provider. us Scanned Document CARDIAC SERVICES ORDERABLES Fin al Result * (ABNORMAL) GLUCOSE - POINT OF CARE (09/26/2024 11:31 AM LABOR RELATIONS CONSULTANT) Only the most recent of4 resultswithin the time period is included. Pathologist [facility] Glucose WB/POC 141(H) 70 - 99 mg/dL 09/26/2024 5:44 PM LABOR RELATIONS CONSULTANT [facility] Specimen Type Cap Fingerstick 2024 5:44 PM LABOR RELATIONS CONSULTANT [facility] Blood BLOOD SPECIMEN / Unknown 09/26/2024 11:31 AM LABOR RELATIONS CONSULTANT 09/26/2024 5:44 PM LABOR RELATIONS CONSULTANT Joycelyn Infante MD LAB - POINT OF CARE ORDERABLES F inal Result [facility] [address] [place] [address] * (ABNORMAL) CBC W/O DIFFERENTIAL (09/25/2024 3:05 AM LABOR RELATIONS CONSULTANT) Only the most recent of2 resultswithin the time period is included. Pathologist [facility] WBC 11.6(H) 4.0 - 10.7 x10E9/L 09/25/2024 3:18 AM [facility] RBC Count 2.58(L) 4.30 - 5.80 x10E12/L 09/25/2024 3:18 AM [facility] Hemoglobin 8.4(L) 13.3 - 17.5 g/dL 09/25/2024 3:18 AM [facility] Hematocrit 25.7(L) 38.7 - 51.1 % 09/25/2024 3:18 AM [facility] MCV 99.6(H) 80.0 - 98.0 fL 09/25/2024 3:18 AM [facility] MCH 32.6 26.7 - 33.6 pg 09/25/2024 3:18 AM [facility] MCHC 32.7 31.7 - 36.3 g/dL 09/25/2024 3:18 AM [facility] RDW-CV 17.4(H) 11.3 - 14.8 % 09/25/2024 3:18 AM [facility] Platelet Count 264 150 - 420 x10E9/L 09/25/2024 3:18 AM [facility] MPV 9.6 7.8 - 11.4 fL 09/25/2024 3:18 AM [facility] NRBC 0.2(H) <=0.0 /100 WBC 09/25/2024 3:18 AM [facility] Blood BLOOD SPECIMEN / Unknown Venipuncture / Unknown 09/25/2024 3:05 AM LABOR RELATIONS CONSULTANT 09/25/2024 3:09 AM [facility] Joycelyn Infante MD LAB - HEMATOLOGY ORDERABLES Felisha merida Result [facility] [address] [place] [address] * (ABNORMAL) BASIC METABOLIC PANEL (CALCIUM TOTAL) (09/25/2024 3:05 AM [facility]) Glucose 101(H) 70 - 99 mg/dL 09/25/2024 3:30 AM [facility] Sodium 140 136 - 145 mmol/L 09/25/2024 3:30 AM [facility] Potassium 3.5 3.5 - 5.1 mmol/L 09/25/2024 3:30 AM [facility] Chloride 113(H) 98 - 107 mmol/L 09/25/2024 3:30 AM [facility] CO2 22 22 - 29 mmol/L 09/25/2024 3:30 AM [facility] Calcium 7.9(L) 8.4 - 10.4 mg/dL 09/25/2024 3:30 AM [facility] Anion Gap 5(L) 6 - 16 mmol/L 09/25/2024 3:30 AM [facility] BUN 19 7 - 26 mg/dL 09/25/2024 3:30 AM [facility] Creatinine 0.79 0.72 - 1.25 mg/dL 09/25/2024 3:30 AM [facility] eGFR by CKD-EPI >90 >=90 mL/min/1.7 3 m2 09/25/2024 3:30 AM LABOR RELATIONS CONSULTANT [facility] Blood BLOOD SPECIMEN / Unknown Venipuncture / Unknown 09/25/2024 3:05 AM LABOR RELATIONS CONSULTANT 09/25/2024 3:09 AM LABOR RELATIONS CONSULTANT Joycelyn Infante MD LAB - CHEMISTRY ORDERABLES Final Result Performing Organization Address [facility] Co de Phone Number [facility] [address] [place] [address] * HELICOBACTER PYLORI UREASE (STL) (09/24/2024 11:36 AM LABOR RELATIONS CONSULTANT) Helicobacter pylori Urease Initial Negative Negative 09/25/2024 12:11 PM LABOR RELATIONS CONSULTANT [facility] Helicobacter pylori Urease Final Negative Negative 09/25/2024 12:11 PM LABOR RELATIONS CONSULTANT [facility] Microbiology GASTRIC ANTRAL BIOPSY SPECIMEN / Unknown Collection / Unknown 09/24/2024 11:36 AM LABOR RELATIONS CONSULTANT 09/24/2024 4:43 PM LABOR RELATIONS CONSULTANT us Luis Armando Gentile MD LAB - MICROBIOLOGY ORDERABL ES Final Result Performing Organization Address [facility] Co de Phone Number [facility] [address] [place] [id number] * EGD (09/24/2024 6:51 AM LABOR RELATIONS CONSULTANT) Report Endoscopy POC _ Patient Name: Gera Dennis Procedure Date: 09/24/2024 6:51 AM Date of : 1950 Admit Type: Inpatient Age: 74 Gender: Male Attending MD: Luis Armando Gentile MD, [id number] _ Procedure: Upper GI endoscopy Indications: Epigastric abdominal pain, Iron deficiency anemia secondary to chronic blood loss, Melena Providers: Luis Armando Gentile MD (Doctor) Referring MD: Don Foy (Referring MD) Medicines: Monitored Anesthesia Care Complications: No immediate complications. _ Estimated Blood Loss: Estimated blood loss: none. Procedure: Pre-Anesthesia Assessment: - Prior to the procedure, a History and Physical was performed, and patient medications and allergies were reviewed. The patient is competent. The risks and benefits of the procedure and the sedation options and risks were discussed with the patient. All questions were answered and informed consent was obtained. Patient identification and proposed procedure were verified by the physician, the nurse and the textile screen maker in the procedure room. Mental Status Examination: alert and oriented. Airway Examination: normal oropharyngeal airway and neck mobility. Respiratory Examination: clear to auscultation. CV Examination: normal. Prophylactic Antibiotics: The patient does not require prophylactic antibiotics. Prior Anticoagulants: The patient has taken no anticoagulant or antiplatelet agents. ASA Grade Assessment: III - A patient with severe systemic disease. After reviewing the risks and benefits, the patient was deemed in satisfactory condition to undergo the procedure. The anesthesia plan was to use monitored anesthesia care (MAC). Immediately prior to administration of medications, the patient was re-assessed for adequacy to receive sedatives. The heart rate, respiratory rate, oxygen saturations, blood pressure, adequacy of pulmonary ventilation, and response to care were monitored throughout the procedure. The physical status of the patient was re-assessed after the procedure. - Prior Aspirin/ NSAID therapy: The patient has taken no aspirin or NSAID medications. After obtaining informed consent, the endoscope was passed under direct vision. Throughout the procedure, the patient's blood pressure, pulse, and oxygen saturations were monitored continuously. The was introduced through the mouth, and advanced to the second part of duodenum. The upper GI endoscopy was accomplished without difficulty. The patient tolerated the procedure well. Findings: The examined esophagus was normal. The entire examined stomach was normal. Biopsies were taken with a cold forceps for Helicobacter pylori testing using CLOtest. One non-bleeding cratered duodenal ulcer with a clean ulcer base (Andrea Class III) was found in the duodenal bulb. The lesion was 10 mm in largest dimension. The second portion of the duodenum was normal. _ Impression: - Normal esophagus. - Normal stomach. Biopsied. - Non-bleeding duodenal ulcer with a clean ulcer base (Andrea Class III). - Normal second portion of the duodenum. Recommendation: - Await pathology results. - Use Protonix (pantoprazole) 40 mg PO BID. - Strictly avoid NSAIDs and anticoagulation - Resume regular diet. - Post procedure medication orders were given. - [facility]. Procedure Code(s): --- Professional --- 97442, Esophagogastroduod enoscopy, flexible, transoral; with biopsy, single or multiple --- Technical --- 44239, Esophagogastroduod enoscopy, flexible, transoral; with biopsy, single or multiple Diagnosis Code(s): --- Professional --- K26.9, Duodenal ulcer, unspecified as acute or chronic, without hemorrhage or perforation R10.13, Epigastric pain D50.0, Iron deficiency anemia secondary to blood loss (chronic) K92.1, Melena (includes Hematochezia) --- Technical --- K26.9, Duodenal ulcer, unspecified as acute or chronic, without hemorrhage or perforation R10.13, Epigastric pain D50.0, Iron deficiency anemia secondary to blood loss (chronic) K92.1, Melena (includes Hematochezia) CPT copyright 2020 [employer]. All rights reserved. The codes documented in this report are preliminary and upon marketing automation specialist review may be revised to meet current compliance requirements. Dr. Luis Armando Gentile MD Luis Armando Gentile MD 09/24/2024 11:38:39 AM This report has been signed electronically. Number of Addenda: 0 Note Initiated On: 09/24/2024 6:51 AM [facility] END[facility] 09/24/2024 6:51 AM LABOR RELATIONS CONSULTANT us Maya Santillan MD GI PROCEDURE ORDERABLES Edited Result - Final [facility] ENDOSCOPY [place] [id number] from Last 3 Months Insurance MEDICARE Advance Directives * Full Code (Latest Code Status on File) Date Activated Date Inactivated Comments 09/22/2024 6:02 PM 09/26/2024 8:09 PM
--- OUTSIDE RECORDS SUMMARY | 2024-12-23 14:35 | XMS_ITS ---
Author Organization Unknown Address [address] [place] [phone] Phone Care Team Providers Care Laborer Road Name Role Phone THOMAS Reyes Attending Unavailable NO PCP Primary Unavailable Immunization Immunization Date Status Additional Notes Code Code System Tdap 08/10/2021 Completed 115 CVX Pneumococcal conjugate PCV 13 06/23/2019 Completed 133 CVX Influenza, high-dose, trivalent, PF 06/23/2019 Completed 135 CVX Influenza, split virus, trivalent, preservative 06/03/2014 Completed 141 CVX Results CBC W/O DIFF - Collect Date/ Time: 09/22/2024 13:50 [facility] ID: [id number] [place], [id number] LOINC: 98137-9 Test Value Unit Reference Range Code Code System Flag WBC 16.5 10^3uL L=4.8 H=10.8 H RBC 3.02 10^6uL L=4.60 H=6.20 L HEMOGLOBIN 9.8 g/dL L=14.0 H=18.0 718-7 LOINC L HEMATOCRIT 29.0 VOL% L=42.0 H=52.0 4544-3 LOINC L MCV 96.0 fL L=80.0 H=94.0 H MCH 32.5 pg L=27.0 H=32.0 H MCHC 33.8 g/dL L=32.0 H=36.0 PLATELETS 271 10^3uL L=100 H=400 74549-4 LOINC RDW 16.3 % L=11.7 H=15.5 H VITAMIN B-12 - Collect Date/ Time: 09/22/2024 05:32 [facility] ID: [id number] [id number] [place] [address], [id number] LOINC: 2132-9 Test Value Unit Reference Range Code Code System Flag VITAMIN B12 849 pq/mL L=239 H=931 PSA-DIAGNOSTIC - Collect Markus e/Time: 09/22/2024 05:24 [facility] ID: [id number] [address] [place] [address], [id number] LOINC: 2857-1 Test Value Unit Reference Range Code Code System Flag PSA DIAG 1.38 ng/mL L=0.00 H=4.00 2857-1 LOINC IRON PANEL - Collect Date/Ti me: 09/22/2024 05:24 [facility] ID: [id number] [address] [place] [address], [id number] LOINC: Test Value Unit Reference Range Code Code System Flag IRON 153 ug/dL L=49 H=181 2498-4 LOINC TIBC 239 ug/dL L=261 H=462 2500-7 LOINC L %SATURATION 64 % L=13 H=45 2708-6 LOINC H TROPONIN LEVEL - Collect Markus e/Time: 09/22/2024 05:24 [facility] ID: [id number] [address] [place] [address], [phone] LOINC: 18509-7 Test Value Unit Reference Range Code Code System Flag TROPONIN < 0.012 ng/mL L=0.000 H=0.033 90278-5 LOINC CBC W/ DIFF - Collect Date/T jenn: 09/22/2024 05:24 [facility] ID: [id number] [address] [place] [address], [id number] LOINC: 29867-5 Test Value Unit Reference Range Code Code System Flag WBC 13.3 10^3uL L=4.8 H=10.8 H RBC 2.71 10^6uL L=4.60 H=6.20 L HEMOGLOBIN 8.7 g/dL L=14.0 H=18.0 718-7 LOINC L HEMATOCRIT 26.3 VOL% L=42.0 H=52.0 4544-3 LOINC L MCV 97.0 fL L=80.0 H=94.0 H MCH 32.1 pg L=27.0 H=32.0 H MCHC 33.1 g/dL L=32.0 H=36.0 PLATELETS 265 10^3uL L=100 H=400 63228-5 LOINC RDW 15.6 % L=11.7 H=15.5 H %GRAN 81.8 % L=40.0 H=70.0 92237-1 LOINC H %LYMPH 6.1 % L=20.0 H=45.0 736-9 LOINC L %MONO 10.3 % L=2.0 H=10.0 82143-2 LOINC H %EOS 1.0 % L=0.0 H=6.0 713-8 LOINC %BASO 0.4 % L=0.0 H=3.0 706-2 LOINC #NEUT 10.9 10^3uL L=1.9 H=7.6 79398-7 LOINC H #LYMPH 0.8 10^3uL L=0.9 H=4.9 52868-3 LOINC L #MONO 1.4 10^3uL L=0.1 H=0.9 01276-2 LOINC H #EOS 0.1 10^3uL L=0.0 H=0.6 712-0 LOINC #BASO 0.06 10^3uL L=0.00 H=0.10 44895-2 LOINC #IM GRANS 0.1 10^3uL L=0.0 H=7.0 42995-0 LOINC %IM GRANS 0.4 % L=0.0 H=5.0 96061-4 LOINC %NRB 0.3 L=0.0 H=0.2 37464-9 LOINC H #NRB 0.040 L=0.000 H=0.012 03560-5 LOINC H MANUAL DIFF NOT INDICATED RBC MORPH NOT INDICATED FOLIC ACID (SERUM) - Collect Date/Time: 09/22/2024 05:24 [facility] ID: [id number] [address] [place] [address], [id number] LOINC: 2284-8 Test Value Unit Reference Range Code Code System Flag FOLATE 16.9 ng/mL L=2.7 H=20.0 2284-8 LOINC LACTIC ACID - Collect Date/T jenn: 09/21/2024 20:10 [facility] ID: [id number] [place] [address], [phone] LOINC: 88846-2 Test Value Unit Reference Range Code Code System Flag LACTIC ACID 1.9 mmol/L L=0.7 H=2.6 77214-8 LOINC URINALYSIS w/Microscopy/C&S if indicated - Collect Date/Time: 09/21/2024 18:27 [facility] ID: [id number] [address] [place] [address], [id number] LOINC: 01857-4 Test Value Unit Reference Range Code Code System Flag UR SOURCE CLEAN CATCH 56948-4 LOINC COLOR YELLOW YELLOW 5778-6 LOINC CLARITY SL CLOUDY CLEAR 26346-4 LOINC SPEC GRAVITY 1.015 1.000-1.030 5811-5 LOINC PH 6.0 5.0 - 6.5 5803-2 LOINC LEUK EST 3+ NEGATIVE 5799-2 LOINC A NITRATE NEGATIVE NEGATIVE PROTEIN NEGATIVE NEGATIVE 5804-0 LOINC GLUCOSE NEGATIVE NEGATIVE 02820-3 LOINC KETONES NEGATIVE NEGATIVE 60190-0 LOINC UROBILINOGEN 0.2 0.2 - 1.0 5818-0 LOINC BILIRUBIN NEGATIVE NEGATIVE 92334-7 LOINC BLOOD TRACE-ÁNGEL NEGATIVE 18703-4 LOINC WBC >50 0 - 2 30508-0 LOINC A RBC 2-5 0 - 2 11737-8 LOINC SQ EPITHELIAL OCCASIONAL RARE-FEW BACTERIA 1+ NONE SEEN 66166-2 LOINC MUCUS NONE SEEN NONE SEEN 8247-9 LOINC YEAST NOT PRESENT NOT PRESENT 19768-9 LOINC TRICHOMONAS NOT PRESENT NOT PRESENT 65209-1 LOINC SPERMATOZOA NOT PRESENT NOT PRESENT 07778-2 LOINC CASTS NOT PRESENT 99372-0 LOINC CRYSTALS NOT PRESENT 79574-9 LOINC CULTURE? YES 8251-1 LOINC DIAGNOSIS ABN LAB RESU BB RETYPE ABO AND RH TYPE - Collect Date/Time: 09/21/2024 17:14 [facility] ID: [id number] [id number] [place] [address], [id number] LOINC: 11390-8 Test Value Unit Reference Range Code Code System Flag ABO TYPE A 883-9 LOINC RH TYPE POSITIVE BB ABO AND RH TYPE - Collect Date/Time: 09/21/2024 17:14 [facility] ID: [id number] [address] [place] [address], [id number] LOINC: 52188-5 Test Value Unit Reference Range Code Code System Flag ABO TYPE A 883-9 LOINC RH TYPE POSITIVE STOOL OCCULT BLOOD 1-3 CARDS - Collect Date/Time: 09/21/2024 17:00 [facility] ID: [id number] [id number] [place] [address], [id number] LOINC: Test Value Unit Reference Range Code Code System Flag OCCULT BLOOD 1 POSITIVE 5778-6 LOINC A OCCULT BLOOD 2 N/A 5778-6 LOINC OCCULT BLOOD 3 N/A 5778-6 LOINC CBC W/ DIFF - Collect Date/T jenn: 09/21/2024 16:15 [facility] ID: [id number] [address] [place] [address], [id number] LOINC: 60302-8 Test Value Unit Reference Range Code Code System Flag WBC 13.9 10^3uL L=4.8 H=10.8 H RBC 1.15 10^6uL L=4.60 H=6.20 L HEMOGLOBIN 3.8 g/dL L=14.0 H=18.0 718-7 LOINC LL CALLED TO: AT: 1644 BY: KYN HEMATOCRIT 12.6 VOL% L=42.0 H=52.0 4544-3 LOINC L MCV 109.6 fL L=80.0 H=94.0 H MCH 33.0 pg L=27.0 H=32.0 H MCHC 30.2 g/dL L=32.0 H=36.0 L PLATELETS 358 10^3uL L=100 H=400 39679-5 LOINC RDW 14.2 % L=11.7 H=15.5 %GRAN 87.1 % L=40.0 H=70.0 44427-7 LOINC H %LYMPH 5.8 % L=20.0 H=45.0 736-9 LOINC L %MONO 6.1 % L=2.0 H=10.0 60352-9 LOINC %EOS 0.3 % L=0.0 H=6.0 713-8 LOINC %BASO 0.1 % L=0.0 H=3.0 706-2 LOINC #NEUT 12.1 10^3uL L=1.9 H=7.6 15301-6 LOINC H #LYMPH 0.8 10^3uL L=0.9 H=4.9 24438-1 LOINC L #MONO 0.9 10^3uL L=0.1 H=0.9 35593-1 LOINC #EOS 0.0 10^3uL L=0.0 H=0.6 712-0 LOINC #BASO 0.01 10^3uL L=0.00 H=0.10 59288-6 LOINC #IM GRANS 0.1 10^3uL L=0.0 H=7.0 39084-6 LOINC %IM GRANS 0.6 % L=0.0 H=5.0 34793-5 LOINC %NRB 0.0 L=0.0 H=0.2 55334-4 LOINC #NRB 0.000 L=0.000 H=0.012 02919-9 LOINC MANUAL DIFF NOT INDICATED RBC MORPH NOT INDICATED 4 PLEX RESPIRATORY COVID FLU RSV PCR - Collect Date/Time: 09/21/2024 16:15 [facility] ID: [id number] [id number] [place] [address], [id number] LOINC: 82189-5 Test Value Unit Reference Range Code Code System Flag SARS CoV2 PCR NEGATIVE FLU A PCR NEGATIVE FLU B PCR NEGATIVE RSV PCR NEGATIVE SEND TO [facility]? NO MAGNESIUM - Collect Date/Bob e: 09/21/2024 16:15 [facility] ID: [id number] [place] [address], [id number] LOINC: 27293-0 Test Value Unit Reference Range Code Code System Flag MAGNESIUM 2.1 mg/dL L=1.6 H=2.3 95723-5 LOINC COMPREHENSIVE METABOLIC PANE L - Collect Date/Time: 09/21/2024 16:15 [facility] ID: [id number] [place] [address], [id number] LOINC: 41088-2 Test Value Unit Reference Range Code Code System Flag FASTING UNKNOWN BUN 55 mg/dL L=7 H=20 3094-0 LOINC H CREATININE 1.00 mg/dL L=0.66 H=1.25 2160-0 LOINC GLUCOSE 146 mg/dL L=74 H=106 2345-7 LOINC H SODIUM 140 mmol/L L=132 H=144 2951-2 LOINC POTASSIUM 3.7 mmol/L L=3.5 H=5.1 2823-3 LOINC CHLORIDE 109 mmol/L L=98 H=107 2075-0 LOINC H CO2 21.0 mmol/L L=22.0 H=30.0 2028-9 LOINC L ANION GAP 14 L=10 H=20 56837-9 LOINC OSMOLALITY 308 mOs/kG L=280 H=296 02391-7 LOINC H BUN/CREAT 55.0 3097-3 LOINC CALCIUM 8.3 mg/dL L=8.3 H=10.5 28301-0 LOINC AST 24 U/L L=15 H=46 1920-8 LOINC ALT 22 U/L L=9 H=72 1742-6 LOINC ALKALINE PHOS 45 U/L L=38 H=126 6768-6 LOINC TOTAL BILI 0.1 mg/dL L=0.2 H=1.3 1975-2 LOINC L ALBUMIN 2.7 G/dL L=3.5 H=5.0 1751-7 LOINC L TOTAL PROTEIN 5.4 g/L L=6.3 H=8.2 2885-2 LOINC L A/G RATIO 1.0 85066-0 LOINC AGE 74 48442-0 LOINC eGFR NON-AFR 78 ml/min eGFR AFR AMER 94 ml/min CT ANGIO ABD/PEL W+WO CONTRA ST - Completed: 09/21/2024 23:29 LOINC: \TM00\12PI\DRAo\BM09\ \MRLo\ [address] [address] ---------NAME--------- NUMBER SEX AGE ADMIT DISC. XRAY# F/C TYPE CLEMENTINA Driscoll [id number] M 74 09/21/24 66757 VALERIY E.R. DATE OF : 1950 M/R# [id number] PH#: [phone] ED-42 \MRx\ LOCATION: TRANSCRIBED: 09/22/24 CT ANGIO ABD/PEL W+WO [id number] COMPLETED:09/21/24 23:29 MRP [id number] abdominal pain PHYSICIAN: THOMAS PHI R A D I O L O G Y R E P O R T Exam: CT ANGIO ABD/PEL W+WO CONTRAST History: abdominal pain Comparison Study: None available at time of dictation. Technique: Multidetector spiral CT of the abdomen and pelvis was performed from lung bases to pubic symphysis. Intravenous contrast was administered during this examination. Portal venous imaging was obtained. Axial, coronal and sagittal multiplanar reformats were performed by the technologist on a separate workstation. Radiation Dose : 1. Abdomen/Pelvis: CTDIvol 9.4 mGy, DLP 408 mGy*cm. Findings: Lung Bases: Moderate emphysematous disease. Liver: The liver is normal in size. No focal lesions. Normal hepatic vascular enhancement. Gallbladder and Biliary Tree: Unremarkable Spleen: Unremarkable Pancreas: The pancreas is normal in appearance without focal lesions or abnormal enhancement. Adrenal Glands: Unremarkable Kidneys: Severe bilateral hydroureteronephrosis. Bladder: Severely distended urinary bladder with dome terminating at the level of L4. calcifications in ther dependent portion of the urinary bladder measuring up to 2.5 cm concerning for calculi. Bowel: Noncontrast images of the stomach demonstrate hyperdense material outlining of the inner lumen of the stomach and proximal duodenum. Small bowel and colon are normal in caliber and distribution. The appendix is not visualized; however, no secondary findings of acute appendicitis identified. Ascites: Absent Lymphadenopathy: No mesenteric, retroperitoneal or periportal lymphadenopathy. Abdominal Wall and Mesentery: Unremarkable. Vasculature: The visualized abdominal aorta is normal in size and caliber. Abdominal and pelvic vessels demonstrate normal enhancement. No aortic dissection or aneurysm. Pelvic Organs: Unremarkable Musculoskeletal: No aggressive focal bony lesions, acute fractures or dislocation. IMPRESSION: No evidence of aortic dissection or aneurysm. Severely distended urinary bladder with associated potential urinary bladder calculi measuring up to 2.5 cm associated moderate to severe bilateral hydroureteronephrosis. Findings are concerning for urinary bladder outlet obstruction. Hyperdense linear structure seen in the noncontrast images aligning the stomach lumen in the proximal duodenum. Findings are nonspecific but concerning for possible hemorrhage versus recently ingested material. Recommend correlation with history and possible endoscopy. [employer] \ITLo\ \UNDo\ \UNDx\ \ITLx\ Reviewed and Electronically Signed by: Herberth Casper DO Signed Date: 09/22/24 00:27 CT CHEST/LUNG WO CONTRAST - Completed: 09/21/2024 16:09 LOINC: \TM00\12PI\DRAo\BM09\ \MRLo\ [address] [address] ---------NAME--------- NUMBER SEX AGE ADMIT DISC. XRAY# F/C TYPE CLEMENTINA HANNON [id number] M 74 09/21/24 [address]93 E.R. DATE OF : 1950 M/R# [id number] PH#: [phone] ED-42 \MRHx\ LOCATION: TRANSCRIBED: 09/21/24 17:16 CT CHEST/LUNG WO CONTRAST [id number] COMPLETED:09/21/24 16:09 KSE 12328 Shortness of breath PHYSICIAN: THOMAS PHI R A D I O L O G Y R E P O R T ADDENDUM # 1 Addendum to add the partially visualized bilateral hydronephrosis to the impression of the exam seen on limited images of the upper abdomen and described in the findings section of the report. May be due to bladder outlet obstruction. Bilateral obstructing calculi would be less likely but not excluded. Correlate with clinical findings. Further evaluation with CT of the abdomen and pelvis could be obtained if clinically indicated. [employer] ORIGINAL REPORT CLINICAL INFORMATION: 74 years old, Male; Shortness of breath. TECHNIQUE: Axial CT imaging of the chest was performed without IV contrast. Sagittal and coronal reformatted images were made, stored and reviewed. Evaluation is limited without IV contrast. One or more of the following dose reduction techniques were used: Automated exposure control. Adjustment of mA and/or kV according to patient size. CTDIvol = not provided. DLP = not provided. COMPARISON: None FINDINGS: Aorta: No thoracic aortic aneurysm. Moderate atherosclerotic calcification. Cardiac: Heart size is within normal limits. Moderate coronary artery calcification. Mediastinum/nolberto: Enlarged right lower paratracheal lymph node measures up to 2.9 x 1.6 cm. Lungs: Severe centrilobular and paraseptal emphysematous changes. There is bronchial impaction involving the right middle lobe lateral segmental bronchus with an ovoid density at the level of the impaction measuring up to 1.2 cm (series 5, image 61). There are patchy airspace opacities in the periphery of the right middle lobe. There is a large area of dense consolidation in the right upper lobe. A lobulated density in the posterior left upper lobe measuring up to 1.6 cm, of uncertain etiology with adjacent atelectasis or scarring. Pulmonary arteries: No gross abnormality. Chest wall: No mass or other abnormality. Upper abdomen: Partially visualized bilateral hydronephrosis. Bones: No fracture or suspicious intraosseous lesions. IMPRESSION: 1. Enlarged right lower paratracheal lymph node, may be reactive. Malignancy, including metastatic disease or lymphoma can not be excluded. 2. Impaction of the lateral segmental bronchus of the right middle lobe with ovoid nodular density at the level of the impaction. May be due to impacted secretions, although endobronchial mass not excluded. 3. Dense consolidation in the right upper lobe, likely infectious or inflammatory in nature, including pneumonia. 4. Lobulated density in the left upper lobe is of uncertain significance, may be sequelae of prior infectious or inflammatory etiology with adjacent atelectasis and/or scarring. Lobulated pulmonary nodule not excluded. Contrast enhanced exam may be helpful to further characterize. 5. Severe emphysematous changes. 6. Additional findings as detailed above. [employer] \ITLo\ \UNDo\ \UNDx\ \ITLx\ Reviewed and Electronically Signed by: Kevon Guaman DO Signed Date: 09/21/24 17:16 Social History Type Status Start Date End Date Code Code Syst em Sex Male Hospital Discharge Instructions Should you have any questions prior to discharge, please contact a member of your healthcare team. If you have left the hospital and have any questions, please contact your primary care physician. Reason For Referral No Data Found Plan of Treatment No Data Found Encounters Encounter Diagnosis Start Date Code Code Sys tem Gastrointestinal hemorrhage, unspecified 09/21/2024 SNOMED-CT Personal Care Team Section Performer Name Performer Role Active Date Inactive Da te Discharge Summary Notes [facility] 09/21/2024 18:51 Blood Transfusion Form [address] [place] [address] Blood Transfusion Requisition Main Line: [phone] Patient: CLEMENTINA Driscoll Gender: M MR#: [id number] Service Code: E Room: ED-42 Address: [address] [place] [address] Admitting Physician: THOMAS CANTU Secondary Physician: Family Physician: JORI PCP City: [place] State: [place] Zip Code: [address] Date of : [id number] Age: 74 Admit Date: 1251001 Admit Time: 1528 Date: 1251001 Time: 1849 p. 1 of 4 To Be Completed By Lab Order Number [id number] Red Arm Band Number [id number] PATIENT/DONOR INFORMATION Patient MR # [id number] Component LRBC Platelets FFP Patient's ABO/RH A POSITIVE Antibody Screen NEGATIVE Donor's ABO/Rh A POSITIVE Donor Unit # [id number] Unit Expiration Date 10/18/2024 Crossmatch COMPATIBLE Performed by FRANCHESKA BECERRA Date 1251001 Time 1735 Called to ARTI JULIO Date 1251001 Time 184 Issued by Date Time Issued to Date Time Transfusion must be initiated within 30 minutes AND completed within 4 hours of time issued by Lab Comments: To Be Completed By Nursing IDENTIFICATION TO BE COMPLETED BEFORE BLOOD IS ADMINISTERED Pt's Name (Red Band) Pt's Medical Record # or (Red band) Pt's Name (From Bag) Pt's Medical Record # or (From Bag) Donor Number (From Bag) ABO/Rh (From Bag) Red arm band ID # SIGNATURES BELOW VERIFY THAT FOLLOWING 7 ITEMS WERE COMPLETED BY RNs STARTING THE TRANSFUSION MD's order has been checked to ensure that the correct component is being given. Consent Form for Blood Transfusion has been signed and is in the EMR/chart. Name & Medical Record # on wrist band identical to Blood Transfusion Record (Transfusion Tag) ABO/Rh on the donor unit matches & is compatible w/ the patient's ABO/Rh on this Transfusion Record. Donor Unit Number matches the Unit Number listed on this Blood Trasfusion Record. Expiration date and crossmatch validity has been verified on unit labeled for this patient. Request for crossmatch specifies the identity of persons performing the crossmatch and interpretation of compatibility. Notes: Nurse #1 Signature Nurse #2 Signature [address] [place] [address] Blood Transfusion Main Line: [phone] Patient: CLEMENTINA Driscoll Gender: M MR#: [id number] Service [facility]: [facility] Address: [address] [place] [address] Admitting Physician: THOMAS CANTU Secondary Physician: Family Physician: NO PCP City: [place] State: [place] Zip Code: [address] Date of : [id number] Age: 74 Admit Date: 1251001 Admit Time: 1527 Date: 1251001 Time: 1849 p. 2 of 4 RECORD OF PATIENT'S RESPONSE Date Time Temp BP Pulse Resp. Initials Prior to Transfusion Start Time xxx xxx xxx xxx 15 min check 30 min check 45 min check Stop Time xxx xxx xxx xxx 15 min Post-Transfusion Check Notes: Amount Given: Partial Unit/ milliliters transfused OR 1/4 1/2 3/4 Full Unit Were ANY of these Symptoms Exhibited? NO Symptoms Noted or Reported YES - Cristobal all that apply ... Fever >1 C or >2 F from Baseline Pruritus Uticaria Nausea Vomiting Elevated BP / Decreased BP Rapid Heart Rate Shortness of Breath Chest Pain or Tightness Back Pain Flank Pain Loss of Consciousness Other: Other: Other: Nurse Signature: Date: Time: Nurse Signature: Date: Time: [place] Transfusion Reaction Investigation Main Line: [phone] Patient: CLEMENTINA Driscoll Gender: M MR#: [id number] Service Code: E Room: [facility] Address: [address] [place] [address] Admitting Physician: THOMAS CANTU Secondary Physician: Family Physician: NO PCP City: [place] State: [place] Zip Code: [address] Date of : [id number] Age: 74 Admit Date: 1251001 Admit Time: 1527 Date: Time: p. 3 4 TO BE COMPLETED BY NURSING Transfusion Start Time: Transfusion Stop Time: Total Transfusion Time: hour(s) minute(s) Total Amount Infused: milliliters Donor Number Vital Sign Pre-Transfusion Post-Transfusion Temperature Pulse Blood Pressure Fluids and/or Medications given with transfusion: Recent fever not related to this transfusion? Yes No Drug Allergies? Yes No Additional Comments: Nurse Signature Date Time [place], [place] Transfusion Reaction Investigation Main Line: [phone] Patient: CLEMENTINA Driscoll Gender: M MR#: [id number] Service Code: E Room: ED-42 Address: [address] [place] [address] Admitting Physician: THOMAS CANTU Secondary Physician: Family Physician: JORI PCP City: [place] State: [place] Zip Code: [address] Date of : [id number] Age: 74 Admit Date: 1251001 Admit Time: 1527 Date: Time: p. 4 of 4 Blood Bank Report - Laboratory Use Only Required Testing: Contact Contact Center Manager to report suspected transfusion reaction For Uticarial reactions WITHOUT fever, perform steps 1, 2 and 3 only. For all other reactions, perform steps 1 - 8. For temp rise >1C or >2F, perform steps 1 - 10. Unit # Unit returned to Laboratory: Date Time Volume ml 1. Check clerical work for discrepancy Checks Does not check 2. Check appearance of patient's serum PRE POST 3. Direct Antiglobulin Test PRE + - POST + - 4. Patient: Pre-Transfusion Group Rho (D) + - 5. Patient: Post-Transfusion Group Rho (D) + - 6. Donor Unit: Tail Segment Group Rho (D) + - 7. Urine color (first void after discontinuation of blood) 8. Urine Free Hemoglobin 9. Gram Stain results on donor unit + - Perform when temp is >1C or >2F above baseline 10. Culture on Donor Unit Set-up Date Results Comments: IF THERE IS EVIDENCE OF INCOMPATIBILITY, CALL PHYSICIAN AND PATHOLOGIST STAT If there is no evidence of any discrepancy, DO NOT proceed to steps 11, 12, or 13. 11. Patient: Pre-Transfusion Antibody Screen + - X-match Compatible Non- compatible 12. Patient: Post-Transfusion Antibody Screen + - X-match Compatible Non- compatible 13. Blood culture on patient Date Results Signature of Technologist Date Time Pigment Making Supervisor Comments/Findings: Pigment Making Supervisor Signature Date Consultation Notes [facility] 09/22/2024 14:00 Chief complaint: Severe fatigue History of present illness: Patient is a 74-year-old male with history of COPD. Patient with a long history of nicotine use. Patient presented to the emergency department with a 2-week history of severe fatigue. In retrospect, patient states that he has had dark tarry stools for the last 2 weeks. Patient has had vague upper abdominal discomfort. Patient denies any nausea or vomiting. Patient denies any significant chest pain. In the emergency department patient was noted to have a critical hemoglobin of 3. Patient has responded appropriately to blood transfusion. Will plan to proceed with EGD. Review of systems 12 point review of systems was performed all were negative other than those mentioned in HPI Physical exam General: No apparent distress HEENT: Pupils equal round reactive light commendation extract muscles are grossly intact nares are patent normal Kos is moist neck supple trach is midline no cervical of adenopathy noted. Heart: Regular rate and rhythm Lungs: Clear to auscultation bilaterally Abdomen: Soft nontender Extremities: No peripheral edema noted Neuro:Patient is awake alert and oriented person place and time cranial nerves II through XII are grossly intact Impression/plan Patient is a 74-year-old male with history of severe anemia and Hemoccult positive stools. Patient is undergoing EGD for further evaluation. Imaging Narrative Notes [facility] 09/22/2024 00:[address] [address] ---------NAME--------- NUMBER SEX AGE ADMIT DISC. XRAY# F/C TYPE CLEMENTINA Driscoll [id number] M 74 09/21/24 35990 VALERIY E.R. DATE OF : 1950 M/R# [id number] PH#: [phone] ED-42 LOCATION: TRANSCRIBED: 09/22/[address] ANGIO ABD/PEL W+WO [id number] COMPLETED:09/21/24 23:29 MRP [id number] abdominal pain PHYSICIAN: THOMAS PHI RADIOLOGY REPORT Exam: CT ANGIO ABD/PEL W+WO CONTRAST History: abdominal pain Comparison Study: None available at time of dictation. Technique: Multidetector spiral CT of the abdomen and pelvis was performed from lung bases to pubic symphysis. Intravenous contrast was administered during this examination. Portal venous imaging was obtained. Axial, coronal and sagittal multiplanar reformats were performed by the technologist on a separate workstation. Radiation Dose : 1. Abdomen/Pelvis: CTDIvol 9.4 mGy, DLP 408 mGy*cm. Findings: Lung Bases: Moderate emphysematous disease. Liver: The liver is normal in size. No focal lesions. Normal hepatic vascular enhancement. Gallbladder and Biliary Tree: Unremarkable Spleen: Unremarkable Pancreas: The pancreas is normal in appearance without focal lesions or abnormal enhancement. Adrenal Glands: Unremarkable Kidneys: Severe bilateral hydroureteronephrosis. Bladder: Severely distended urinary bladder with dome terminating at the level of L4. calcifications in ther dependent portion of the urinary bladder measuring up to 2.5 cm concerning for calculi. Bowel: Noncontrast images of the stomach demonstrate hyperdense material outlining of the inner lumen of the stomach and proximal duodenum. Small bowel and colon are normal in caliber and distribution. The appendix is not visualized; however, no secondary findings of acute appendicitis identified. Ascites: Absent Lymphadenopathy: No mesenteric, retroperitoneal or periportal lymphadenopathy. Abdominal Wall and Mesentery: Unremarkable. Vasculature: The visualized abdominal aorta is normal in size and caliber. Abdominal and pelvic vessels demonstrate normal enhancement. No aortic dissection or aneurysm. Pelvic Organs: Unremarkable Musculoskeletal: No aggressive focal bony lesions, acute fractures or dislocation. IMPRESSION: No evidence of aortic dissection or aneurysm. Severely distended urinary bladder with associated potential urinary bladder calculi measuring up to 2.5 cm associated moderate to severe bilateral hydroureteronephrosis. Findings are concerning for urinary bladder outlet obstruction. Hyperdense linear structure seen in the noncontrast images aligning the stomach lumen in the proximal duodenum. Findings are nonspecific but concerning for possible hemorrhage versus recently ingested material. Recommend correlation with history and possible endoscopy. [employer] Reviewed and Electronically Signed by: Herberth Casper DO Signed Date: 09/22/24 00:27 [facility] 09/21/2024 17:02 [facility] [address] [place] [address] ---------NAME--------- NUMBER SEX AGE ADMIT DISC. XRAY# F/C TYPE CLEMENTINA Driscoll [id number] M 74 09/21/24 [id number] VALERIY E.R. DATE OF : 1950 M/R# [id number] #: [id number] LOCATION: TRANSCRIBED: 09/21/24 17:16 CT CHEST/LUNG WO CONTRAST [id number] COMPLETED:09/21/24 16:09 KSE [id number] Shortness of breath PHYSICIAN: THOMAS PHI RADIOLOGY REPORT ADDENDUM # 1 Addendum to add the partially visualized bilateral hydronephrosis to the impression of the exam seen on limited images of the upper abdomen and described in the findings section of the report. May be due to bladder outlet obstruction. Bilateral obstructing calculi would be less likely but not excluded. Correlate with clinical findings. Further evaluation with CT of the abdomen and pelvis could be obtained if clinically indicated. [employer] ORIGINAL REPORT CLINICAL INFORMATION: 74 years old, Male; Shortness of breath. TECHNIQUE: Axial CT imaging of the chest was performed without IV contrast. Sagittal and coronal reformatted images were made, stored and reviewed. Evaluation is limited without IV contrast. One or more of the following dose reduction techniques were used: Automated exposure control. Adjustment of mA and/or kV according to patient size. CTDIvol = not provided. DLP = not provided. COMPARISON: None FINDINGS: Aorta: No thoracic aortic aneurysm. Moderate atherosclerotic calcification. Cardiac: Heart size is within normal limits. Moderate coronary artery calcification. Mediastinum/nolberto: Enlarged right lower paratracheal lymph node measures up to 2.9 x 1.6 cm. Lungs: Severe centrilobular and paraseptal emphysematous changes. There is bronchial impaction involving the right middle lobe lateral segmental bronchus with an ovoid density at the level of the impaction measuring up to 1.2 cm (series 5, image 61). There are patchy airspace opacities in the periphery of the right middle lobe. There is a large area of dense consolidation in the right upper lobe. A lobulated density in the posterior left upper lobe measuring up to 1.6 cm, of uncertain etiology with adjacent atelectasis or scarring. Pulmonary arteries: No gross abnormality. Chest wall: No mass or other abnormality. Upper abdomen: Partially visualized bilateral hydronephrosis. Bones: No fracture or suspicious intraosseous lesions. IMPRESSION: 1. Enlarged right lower paratracheal lymph node, may be reactive. Malignancy, including metastatic disease or lymphoma can not be excluded. 2. Impaction of the lateral segmental bronchus of the right middle lobe with ovoid nodular density at the level of the impaction. May be due to impacted secretions, although endobronchial mass not excluded. 3. Dense consolidation in the right upper lobe, likely infectious or inflammatory in nature, including pneumonia. 4. Lobulated density in the left upper lobe is of uncertain significance, may be sequelae of prior infectious or inflammatory etiology with adjacent atelectasis and/or scarring. Lobulated pulmonary nodule not excluded. Contrast enhanced exam may be helpful to further characterize. 5. Severe emphysematous changes. 6. Additional findings as detailed above. [employer] Reviewed and Electronically Signed by: Kevon Guaman DO Signed Date: 09/21/24 17:16
[2024-12-23] MEDS: MORPHINE 50 MG/NS 100ML (*CRX) 50 MG/100 ML BAG IV CONT (14:38)
[2024-12-23 15:58] VITALS: BMI 16.2
[2024-12-23] MEDS: LIDOCAINE 2% VISC SOLN 30 ML, ALUMINUM/MAGNESIUM/SIMETH SUSP 30 ML, diphenhydrAMINE HCl... XX ×2 (16:38→21:00)
[2024-12-23] MEDS: LORazepam INJ (*CRX) 2 MG/ML VIAL 1 MG IV PUSH (16:39)
--- NOTE | 2024-12-23 17:38 | PM.IMHP ---
H&P: HPI History of Present Illness Date/Time: 12/23/24 17:38 Chief Complaint: Uncontrolled pain Narrative: 74-year-old gentleman was admitted [facility] on December 17 after a fall with fracture of the right hip. He underwent ORIF December 18 with successful intramedullary pinning. He was being treated for necrotizing pneumonia of the right upper lobe with with cefepime and vancomycin. Blood cultures were negative. His CT suggested possible malignancy. It was felt by pulmonology the was too high risk for bronchoscopy and not a candidate for treatment should malignancy be diagnosed. He was not eating or drinking enough to sustain himself. He was becoming more confused and restless with pain. His brother who is power of document review attorney opted for inpatient hospice care for symptom management. Review of Systems Review of Systems: ROS unobtainable: Yes unobtainable due to medical condition PMFSH Past Medical History Medical History Lung nodule Cachexia Social History Social History (Updated 12/23/24 @ 17:39 by Yaw Gonzalez MD) Social History: Code Status: DNR Smoking status: Light tobacco smoker Tobacco type: cigarettes Alcohol intake: never Substance use: current Substance use type: marijuana Do You Feel Safe in your Home?: Yes Lack of Transportation: No Lack of Food: Never True Current Housing: I Have Housing Concerned About Future Housing: No Difficulty Paying Gas/Electric Bills: No Difficulty Paying for Meds: No Currently Unemployed: No Education: Associate Degree Difficulty w/ Childcare or Family Care: No Spiritual care concerns: No Meds Home Medications and Allergies Home Medications ?Medication ?Instructions ?Recorded ?Confirmed ?Type No Home Medications 12/23/24 12/23/24 History Allergies Allergy/AdvReac Type Severity Reaction Status Date / Time No Known Allergies Allergy Verified 12/17/24 12:31 Exam Narrative: GENERAL: Cachectic elderly gentleman who appears older than his stated age HEENT: Sclerae nonicteric, pharyngeal mucosa pink and intact NECK: No JVD CHEST: Distant BS. Normal effort HEART: NL S1/S2, regular, no murmur ABDOMEN: BS hypoactive, soft, nontender, no mass, no bruits EXTREMITIES: No cyanosis, edema, or clubbing NEUROLOGIC: CN intact and symmetric to inspection. MUSCULOSKELETAL: No gross deformity to visual inspection PSYCH: Sleeping and unresponsive to verbal or tactile stimuli Assessment and Plan Assessment and plan (1) Hospice care: Code(s): Z51.5 - Encounter for palliative care Status: Acute Assessment and Plan: Meet inpatient hospice criteria due to requiring continuous IV morphine for control of pain and agitation. P.r.n. palliative regimen ordered. 12/23/2024: Discussed care and prognosis with brother, who is power of document review attorney, and significant other at bedside. (2) Lung nodule: Code(s): R91.1 - Solitary pulmonary nodule Status: Acute (3) Necrotizing pneumonia: Code(s): J85.0 - Gangrene and necrosis of lung Status: Acute (4) End stage chronic obstructive pulmonary disease: Code(s): J44.9 - Chronic obstructive pulmonary disease, unspecified Status: Acute (5) Closed intertrochanteric fracture of right femur: Code(s): S72.141A - Displaced intertrochanteric fracture of right femur, initial encounter for closed fracture Status: Acute (6) Severe malnutrition: Code(s): E43 - Unspecified severe protein-calorie malnutrition Status: Acute (7) Encephalopathy: Code(s): G93.40 - Encephalopathy, unspecified Status: Acute (8) Sepsis: Code(s): A41.9 - Sepsis, unspecified organism Status: Acute
[2024-12-24] MEDS: LIDOCAINE 2% VISC SOLN 30 ML, ALUMINUM/MAGNESIUM/SIMETH SUSP 30 ML, diphenhydrAMINE HCl... XX ×6 (01:00→21:00)
[2024-12-24 03:09] VITALS: BP 75/53; PULSE 119; RESP 18; TEMP 37.9; O2SAT 92
[2024-12-24 08:00] VITALS: BP 76/50; PULSE 110; RESP 12; TEMP 36.9; O2SAT 77
[2024-12-24 13:29] VITALS: PULSE 113
[2024-12-24] MEDS: MORPHINE 50 MG/NS 100ML (*CRX) 50 MG/100 ML BAG IV CONT (13:29)
--- NOTE | 2024-12-24 17:12 | P.PNIM_ITS ---
Progress Note: A&P Assessment and Plan (1) Hospice care: Code(s): Z51.5 - Encounter for palliative care Status: Acute Assessment and Plan: * Meet inpatient hospice criteria due to requiring continuous IV morphine for control of pain and agitation. * P.r.n. palliative regimen ordered. * 12/23/2024: Discussed care and prognosis with brother, who is power of managing attorney, and significant other at bedside. * 12/24/2024: Comfortable but too unstable to transfer and seem imminent. D/w brotherDoc, at bedside. (2) Lung nodule: Code(s): R91.1 - Solitary pulmonary nodule Status: Acute (3) Necrotizing pneumonia: Code(s): J85.0 - Gangrene and necrosis of lung Status: Acute (4) End stage chronic obstructive pulmonary disease: Code(s): J44.9 - Chronic obstructive pulmonary disease, unspecified Status: Acute (5) Closed intertrochanteric fracture of right femur: Code(s): S72.141A - Displaced intertrochanteric fracture of right femur, initial encounter for closed fracture Status: Acute (6) Severe malnutrition: Code(s): E43 - Unspecified severe protein-calorie malnutrition Status: Acute (7) Encephalopathy: Code(s): G93.40 - Encephalopathy, unspecified Status: Acute (8) Sepsis: Code(s): A41.9 - Sepsis, unspecified organism Status: Acute Subjective Date/time seen: 12/24/24 17:12 Interval history: Remains comfortable on current regimen. Review of Systems Review of Systems: ROS unobtainable: Yes unobtainable due to medical condition Exam Narrative: GENERAL: Cachectic elderly gentleman who appears older than his stated age HEENT: Sclerae nonicteric, pharyngeal mucosa pink and intact NECK: No JVD CHEST: Distant BS. Normal effort HEART: NL S1/S2, regular, no murmur ABDOMEN: BS hypoactive, soft, nontender, no mass, no bruits EXTREMITIES: No cyanosis, edema, or clubbing NEUROLOGIC: CN intact and symmetric to inspection. MUSCULOSKELETAL: No gross deformity to visual inspection PSYCH: Sleeping and unresponsive to verbal or tactile stimuli Objective Data Vital Signs Vital Signs: Vital Signs - 24 hr 12/23/24 21:50 12/24/24 03:09 12/24/24 08:00 Temperature 100.2 F H 98.4 F Pulse Rate 119 H 110 H Respiratory Rate 18 12 Blood Pressure 75/53 L 76/50 L Pulse Oximetry 92 77 L Oxygen Delivery Room Air 12/24/24 13:26 12/24/24 13:29 12/24/24 13:29 Temperature Pulse Rate 113 H 113 H Respiratory Rate Blood Pressure Pulse Oximetry Oxygen Delivery Room Air Intake/Output Intake/Output: Intake & Output 12/21/24 12/22/24 12/23/24 12/24/24 23:59 23:59 23:59 23:59 Intake Total 91.4 Balance 91.4 Meds/Results Medications: Active Medications Generic Name Dose Route Start Last Admin Trade Name Freq PRN Reason Stop Dose Admin Artificial Tears 0 drop 12/23/24 14:02 Artificial Tears Ophth Soln 15 Ml Bottle EACH EYE Q8H PRN Dry Eye(s) Bisacodyl 10 mg 12/23/24 14:02 Bisacodyl 10 Mg Suppository RECTAL DAILY PRN Constipation Lidocaine HCl 30 ml/ Al Hydrox 0 ml 12/23/24 17:00 12/24/24 16:24 /Mg Hydrox/Simethicone 30 ml/ XX 5 ml Diphenhydramine HCl 75 mg Q4HR MELLISA Administration Glycopyrrolate 0.1 mg 12/23/24 14:01 Glycopyrrolate Inj (*Sp) 0.2 Mg/Ml Vial IV PUSH Q4H PRN SECRETIONS Morphine Sulfate 50 mg in 100 mls @ 4 mls/hr 12/23/24 14:15 12/24/24 13:29 IV CONT 2 mg/hr .Q24H MELLISA 4 mls/hr Administration 2 MG/HR Lorazepam 1 mg 12/23/24 14:00 12/23/24 16:39 Lorazepam Inj (*Crx) 2 Mg/Ml Vial IV PUSH 1 mg Q4H PRN Administration RESTLESSNESS Morphine Sulfate 4 mg 12/23/24 14:03 12/23/24 16:39 Morphine Sulfate (*Crx) 2 Mg/Ml Inj IV PUSH 4 mg Q2H PRN Administration PAIN/DYSPNEA Prochlorperazine Edisylate 10 mg 12/23/24 14:01 Prochlorperazine Edisylate 10 Mg/2 Ml Vial IV PUSH Q6H PRN Nausea And Vomiting
[2024-12-24 20:00] VITALS: BP 73/50; PULSE 109; RESP 8; TEMP 37.3; O2SAT 83
[2024-12-25] MEDS: LORazepam INJ (*CRX) 2 MG/ML VIAL 1 MG IV PUSH ×2 (09:16→17:21)
[2024-12-25] MEDS: MORPHINE SULFATE (*CRX) 2 MG/ML INJ 4 MG IV PUSH ×2 (09:17→17:21)
[2024-12-25 13:01] VITALS: PULSE 101; RESP 14
[2024-12-25] MEDS: MORPHINE 50 MG/NS 100ML (*CRX) 50 MG/100 ML BAG IV CONT (13:01)
[2024-12-25 15:03] VITALS: BP 102/87; PULSE 93; RESP 14; TEMP 36.4; O2SAT 81
--- NOTE | 2024-12-25 17:26 | PM.IMPN ---
Progress Note: A&P Assessment and Plan (1) Hospice care: Code(s): Z51.5 - Encounter for palliative care Status: Acute Assessment and Plan: Meet inpatient hospice criteria due to requiring continuous IV morphine for control of pain and agitation. P.r.n. palliative regimen ordered. 12/23/2024: Discussed care and prognosis with brother, who is power of conveyor system dispatcher, and significant other at bedside. 12/24/2024: Comfortable but too unstable to transfer and seem imminent. D/w brotherDoc, at bedside. (2) Lung nodule: Code(s): R91.1 - Solitary pulmonary nodule Status: Acute (3) Necrotizing pneumonia: Code(s): J85.0 - Gangrene and necrosis of lung Status: Acute (4) End stage chronic obstructive pulmonary disease: Code(s): J44.9 - Chronic obstructive pulmonary disease, unspecified Status: Acute (5) Closed intertrochanteric fracture of right femur: Code(s): S72.141A - Displaced intertrochanteric fracture of right femur, initial encounter for closed fracture Status: Acute (6) Severe malnutrition: Code(s): E43 - Unspecified severe protein-calorie malnutrition Status: Acute (7) Encephalopathy: Code(s): G93.40 - Encephalopathy, unspecified Status: Acute (8) Sepsis: Code(s): A41.9 - Sepsis, unspecified organism Status: Acute Subjective Date/time seen: 12/25/24 17:26 Interval history: Remains comfortable on current regimen. Did require one prn dose due to restlessness earlier this afternoon. Review of Systems Review of Systems: ROS unobtainable: Yes unobtainable due to medical condition Exam Narrative: GENERAL: Cachectic elderly gentleman who appears older than his stated age HEENT: Sclerae nonicteric, pharyngeal mucosa pink and intact NECK: No JVD CHEST: Distant BS. Normal effort HEART: NL S1/S2, regular, no murmur ABDOMEN: BS hypoactive, soft, nontender, no mass, no bruits EXTREMITIES: No cyanosis, edema, or clubbing NEUROLOGIC: CN intact and symmetric to inspection. MUSCULOSKELETAL: No gross deformity to visual inspection PSYCH: Sleeping and unresponsive to verbal or tactile stimuli Objective Data Vital Signs Vital Signs: Vital Signs - 24 hr 12/24/24 20:00 12/25/24 08:00 12/25/24 13:01 Temperature 99.2 F Pulse Rate 109 H 101 H Respiratory Rate 8 L 14 Blood Pressure 73/50 L Pulse Oximetry 83 L Oxygen Delivery Room Air 12/25/24 15:03 Temperature 97.6 F Pulse Rate 93 Respiratory Rate 14 Blood Pressure 102/87 Pulse Oximetry 81 L Oxygen Delivery Intake/Output Intake/Output: Intake & Output 12/22/24 12/23/24 12/24/24 12/25/24 23:59 23:59 23:59 23:59 Intake Total 91.4 94.1 Output Total 450 Balance 91.4 -355.9 Meds/Results Medications: Active Medications Generic Name Dose Route Start Last Admin Trade Name Freq PRN Reason Stop Dose Admin Artificial Tears 0 drop 12/23/24 14:02 Artificial Tears Ophth Soln 15 Ml Bottle EACH EYE Q8H PRN Dry Eye(s) Bisacodyl 10 mg 12/23/24 14:02 Bisacodyl 10 Mg Suppository RECTAL DAILY PRN Constipation Lidocaine HCl 30 ml/ Al Hydrox 0 ml 12/23/24 17:00 12/25/24 15:28 /Mg Hydrox/Simethicone 30 ml/ XX Not Given Diphenhydramine HCl 75 mg Q4HR MELLISA Glycopyrrolate 0.1 mg 12/23/24 14:01 Glycopyrrolate Inj (*Sp) 0.2 Mg/Ml Vial IV PUSH Q4H PRN SECRETIONS Morphine Sulfate 50 mg in 100 mls @ 4 mls/hr 12/23/24 14:15 12/25/24 13:01 IV CONT 2 mg/hr .Q24H MELLISA 4 mls/hr Administration 2 MG/HR Lorazepam 1 mg 12/23/24 14:00 12/25/24 17:21 Lorazepam Inj (*Crx) 2 Mg/Ml Vial IV PUSH 1 mg Q4H PRN Administration RESTLESSNESS Morphine Sulfate 4 mg 12/23/24 14:03 12/25/24 17:21 Morphine Sulfate (*Crx) 2 Mg/Ml Inj IV PUSH 4 mg Q2H PRN Administration PAIN/DYSPNEA Prochlorperazine Edisylate 10 mg 12/23/24 14:01 Prochlorperazine Edisylate 10 Mg/2 Ml Vial IV PUSH Q6H PRN Nausea And Vomiting
[2024-12-25 20:00] VITALS: BP 104/60; PULSE 102; RESP 23; TEMP 36.7; O2SAT 89
[2024-12-26] MEDS: LORazepam INJ (*CRX) 2 MG/ML VIAL 1 MG IV PUSH (01:05)
[2024-12-26] MEDS: MORPHINE SULFATE (*CRX) 2 MG/ML INJ 4 MG IV PUSH (01:05)
[2024-12-26] MEDS: LIDOCAINE 2% VISC SOLN 30 ML, ALUMINUM/MAGNESIUM/SIMETH SUSP 30 ML, diphenhydrAMINE HCl... XX (01:06)
--- NOTE | 2024-12-26 09:07 | PC.NURSE ---
Verfiied per [facility] Coroner that patient can be released to Home. Skin Piler released to home. Home notified at 0900. home Maico to meat pickler later this afternoon. Security notified. All belongings sent with patient to the [facility] in patient belongings bag. Urinary catheter removed prior to taking to [facility].
--- NOTE | 2024-12-26 12:18 | PM.DDS ---
Discharge Summary Date and Time Date of : 12/26/24 Time of : 02:07 Provider Pronounced By: 2 RNs Name of First RN That Pronounced: Criselda Kerr Name of Second RN That Pronounced: Seth Reyes Probable Cause of Probable Cause of : sepsis Summary Hospital Course: Admitted to inpatient hospice service. Medications titrated to comfort. Mr. Dennis peacefully. 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
== END 2024-12-26 09:10 | disposition expired | DRG 951 ==
PROVIDERS: Admitting Provider Internal Medicine; Visit Provider Internal Medicine
DX: Z51.5 Encounter for palliative care (principal); A41.9 Sepsis, unspecified organism; J85.0 Gangrene and necrosis of lung; E43 Unspecified severe protein-calorie malnutrition; R91.1 Solitary pulmonary nodule; J44.9 Chronic obstructive pulmonary disease, unspecified; S72.141D Displaced intertrochanteric fracture of right femur, subsequent encounter for closed fracture with routine healing
CPT/HCPCS: A9270; J2060; J2270